=== PATIENT | female | born 1975 | race Caucasian/White ===

== ENCOUNTER 2021-09-10 09:57 | Outpatient (AMB) | payer BC, SELFPAY ==
[2021-09-10 10:13] VITALS: BP 120/82; PULSE 60; TEMP 36.3; BMI 19.8
--- NOTE | 2021-09-10 10:13 | URONOTE_ITS ---
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 Is patient in pain?: No Allergy Allergies ciprofloxacin Allergy (Intermediate, Verified 09/10/21 10:14) SEVERE NAUSEA AND VOMITING Home Meds Medication Reconciliation pyridostigmine bromide 60 mg tablet 90 mg PO TID #60 06/24/15 [History Confirmed 09/10/21] ondansetron 4 mg disintegrating tablet 4 mg PO Q6H PRN #0 tab 03/04/16 [History Confirmed 09/10/21] duloxetine 20 mg capsule,delayed release (Cymbalta) 20 mg PO BID #0 cap 04/02/17 [History Confirmed 09/10/21] lorazepam 0.5 mg tablet 0.5 mg PO BID #0 tab 04/02/17 [History Confirmed 09/10/21] linaclotide 290 mcg capsule (Linzess) 290 mcg PO QDAY 01/18/19 [History Confirmed 09/10/21] sodium bicarbonate 325 mg tablet 325 mg PO TID 01/18/19 [History Confirmed 09/10/21] levothyroxine 25 mcg tablet 25 mcg PO QDAY 08/13/21 [History Confirmed 09/10/21] paroxetine HCl 10 mg tablet 10 mg PO QDAY 08/13/21 [History Confirmed 09/10/21] pregabalin 75 mg capsule 75 mg PO QDAY 08/13/21 [History Confirmed 09/10/21] Nurse Note: Present with Dr Hart in exam room. Patient to be scheduled for cystoscopy. In and catheter inserted by Megha OGDEN. Patient's urine sent for cultures. mvp Fall Screening Do you have a fear of falling?: No Have you had a fall in the last 2 months?: No Do you use an assistive device for ambulation?: No Current Vital Signs Height Height Method Weight Weight Measurement Method Body Mass Index Temperature Temperature Source 1.57 m Stated 49.101 kg Standing Scale 19.8 97.3 F Temporal Artery Scan 09/10/21 10:13 09/10/21 10:13 09/10/21 10:13 09/10/21 10:13 09/10/21 10:13 09/10/21 10:13 09/10/21 10:13 3 Pulse Rate Pulse Source Blood Pressure Blood Pressure Source Blood Pressure Location Blood Pressure Position 60 Monitor 120/82 Automatic Cuff Left Upper Arm Sitting 09/10/21 10:13 09/10/21 10:13 09/10/21 10:13 09/10/21 10:13 09/10/21 10:13 09/10/21 10:13 Nursing Documentation Social History Living Situation History Lives With: Family Housing: House Tobacco History Smoking Status: Never smoker Alcohol History Alcohol Intake: Never Alcohol Intake Frequency: 3 or More Drinks per Day Substance Use History Substance Use: MARIJUANA ONCE A WEEK Office Procedures Uro Clinic Insert Urinary Cath Catheter in and out catheter: Date of Insertion: 09/10/21 Time of Insertion: 10:59 Urinary Catheter Size: 14 Patency: Patent/Draining Urine Characteristics: Clear Odor: Normal Catheter Care: Peggy-care My Supervising Practitioner for this visit:: Aries Hart Cath Insertion Straight: Yes Uro Level of Care Nursing/Assessment/Reassessment Patient Status: Established Patient Nursing Assessment/Reassessment: Update [facility] data in EMR, Vital Signs and Medication Reconciliation Coordination of Care: Simp Pt/Fam Ed for care and Ref for ancillary service Established Patient Point Assignment: 65 Established Patient Point Charge: EP Level 2 (40-75) Procedure IM Injection: No Transrectal Ultrasound: No Urology Clinic Office Visit Office Visit Date of visit:: September 10, 2021 09:57 Allergies & Home Medications: Allergies ciprofloxacin Allergy (Intermediate, Verified 08/13/21 10:55) SEVERE NAUSEA AND VOMITING Visit: Reason for visit: [] Office Visit findings: []
[2021-09-10 10:53] LABS: Bilirubin,Urine Clinitek Negative (Negative); Blood,Urine Clinitek 2+ (Negative); Glucose, Urine Clinitek Negative (Negative); Ketones,Urine Clinitek Negative (Negative); Leukocyte Esterase,Urine Clin 1+ (Negative); Nitrite,Urine Clinitek Negative (Negative); Protein,Urine Clinitek 2+ (Neg - Trace); Specific Gravity,Urine Clin 1.015 (1.001-1.030); Urobilinogen,Urine Clinitek 0.2 mg/dL (0.0-1.0)
--- NOTE | 2021-09-11 05:44 | URONOTEN_ITS ---
RE: ROCIO BONNER : 1975 DATE: 09/10/2021 CHIEF COMPLAINT: 1. Recurrent urinary tract infection. 2. Frequency of urination every 2 hours at night and every 2 hours during the day. 3. Dysuria. 4. Hematuria. 5. History of smoking. HISTORY OF PRESENT ILLNESS: This is a 45-year-old female. She has a history of recurrent UTI. She had urine cultures. This was contaminated. No growth was identified. The patient also has chronic kidney disease. This patient has history of ileostomy done in 2008 at [facility] and she also complains of nausea on p.r.n. basis. She is status post pyloromyotomy. In 2018, she had kidney biopsy, which was suboptimal, it showed some acute tubular injury. The patient is permanently disabled. No history of hysterectomy. She is a 3, para 2, one miscarriage. The patient also has a chronic renal insufficiency. 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 Urine for cytology was done, it was negative for any malignancy. PHYSICAL EXAMINATION: General: Condition is satisfactory. Orientation x3. Vital Signs: Stable. They are in the HPI, in EMR. HEENT: Normocephalic, atraumatic. Eyes: No anemia or jaundice. Neck: Supple. Trachea is central. Thyroid is not enlarged. Extremities: Revealed no edema, cyanosis, or clubbing. CAT scan was reviewed by me and again there were extensive bilateral renal calculi ranging from 1-12 mm. No hydronephrosis or ureteral calculi. RECOMMENDATION: 1. Consultation with Dr. Vizcaino. 2. Cystoscopic examination, rule out bladder cancer because of gross hematuria. All above issues were discussed with the patient in great detail. Questions answered to the patient's satisfaction. The patient verbalized understanding. DT: 12:04:25 TT: 14:06:00 Ref: [id number] - TID: [id number]
== END 2021-09-10 11:00 | disposition home or self-care (01) ==
LOC: HODURO 09:57
PROVIDERS: PCP Internal Medicine; Visit Provider Urology

== ENCOUNTER → 2024-06-05 | Outpatient (CLI) | payer BC, SELFPAY ==
[2024-06-05 09:02] LABS: Misc Send Out* See Sep Rpt
[2024-06-05 09:28] LABS: Collection Type, Urine Clean Catch
[2024-06-05 09:57] LABS: Basophils # (Auto) 0.3 Thou/mm3 (0.0-0.2); Basophils % (Auto) 2 % (0-2.5); Eosinophils # (Auto) 0.3 Thou/mm3 (0.0-0.5); Eosinophils % (Auto) 2 % (0-10); Hematocrit 39.6 % (36.0-46.0); Hemoglobin 10.8 g/dL (12.0-16.0); Immature Granulocytes % (Auto) 0 % (0-0); Immature Granulocytes Auto 0.05 Thou/mm3 (0.00-0.00); Lymphocytes # (Auto) 1.8 Thou/mm3 (1.0-4.8); Lymphocytes % (Auto) 14 % (10-50); Mean Corpuscular HGB Conc 27.3 g/dl (31.0-37.0); Mean Corpuscular Hemoglobin 19.8 pg (25.0-35.0); Mean Corpuscular Volume 73 fL (80-100); Monocytes # (Auto) 0.8 Thou/mm3 (0.0-0.8); Monocytes % (Auto) 6 % (0-12); Neutrophils # (Auto) 9.7 Thou/mm3 (1.8-7.7); Neutrophils % (Auto) 75 % (37-80); Nucleated Red Blood Cell # 0.06 Thou/mm3 (0.00-0.00); Nucleated Red Blood Cell % 1 /100 WBC (0); Platelet Count 428 Thou/mm3 (140-440); RDW Standard Deviation 53.1 fL (36.4-46.3); Red Blood Count 5.45 Miln/mm3 (4.00-5.20); White Blood Count 12.9 Thou/mm3 (3.6-11.0)
[2024-06-05 10:06] LABS: Bacteria,Urine Rare; Bilirubin,Urine Negative (Negative); Blood,Urine 2+ (Negative); Clarity,Urine Clear (Clear/Hazy); Color,Urine Lt-Yellow (Lt Yel-Yel); Glucose, Urine Negative (Negative); Hyaline Casts,Urine < 1 /hpf (0-1); Ketones,Urine Negative (Negative); Leukocyte Esterase,Urine Positive (Negative); Nitrite,Urine Negative (Negative); PH,Urine 6.5 (5.0-7.0); Protein,Urine 1+ (Neg - Trace); RBC,Urine 84 /hpf (0-3); Squamous Epithelial Cell,Urine 1 /hpf (0-5); Urobilinogen,Urine Negative mg/dL (0.0-1.0); WBC,Urine 38 /hpf (0-5)
[2024-06-05 10:21] LABS: Alanine Aminotransferase 10 U/L (10-49); Albumin, Serum 5.1 gm/dL (3.5-5.0); Albumin/Globulin Ratio 2.3 (1.2-2.2); Alkaline Phosphatase 407 U/L (46-116); Anion Gap 9 (7-16); Aspartate Amino Transferase 24 U/L (0-34); BUN/Creatinine Ratio 13 Ratio (12-20); Bilirubin,Total 0.4 mg/dL (0.3-1.2); Blood Urea Nitrogen 22 mg/dL (9-23); Calcium 9.6 mg/dL (8.3-10.6); Calcium (Corrected) 9.6 mg/dL (8.5-10.1); Carbon Dioxide 16.2 mMol/L (20.0-31.0); Chloride 111 mMol/L (98-107); Cholesterol 307 mg/dL (132-200); Creatinine (Component) 1.7 mg/dL (0.6-1.3); Globulin 2.2 gm/dL (2.3-3.5); Glucose 106 mg/dL (74-106); HDL Cholesterol 104 mg/dL (40-60); LDL Cholesterol,Calculated 171 mg/dL (0-130); Osmolality,Calculated 275 (275-295); Potassium 3.7 mMol/L (3.4-5.1); Sodium 136 mMol/L (136-145); Thyroid Stimulating Hormone 3.07 uIU/mL (0.55-4.78); Total Protein 7.3 gm/dL (5.7-8.2); Triglycerides 162 mg/dL (30-150); eGFR 37 See Note
[2024-06-05 10:23] LABS: Culture Indicated,Urine Yes
== END | disposition home or self-care (01) ==
LOC: COPL 08:46
PROVIDERS: PCP Internal Medicine; Referring Provider Internal Medicine; Visit Provider Internal Medicine
DX: N18.30 Chronic kidney disease, stage 3 unspecified (principal); E87.22 Chronic metabolic acidosis; E21.0 Primary hyperparathyroidism; I95.9 Hypotension, unspecified
CPT/HCPCS: 36415; 80053; 80061; 81001; 83970; 84075; 84443; 85025; 87086

== ENCOUNTER → 2024-08-29 | Outpatient (CLI) | payer BC, SELFPAY ==
[2024-08-29 13:51] LABS: Misc Send Out* See Sep Rpt
[2024-08-29 13:58] LABS: Collection Type, Urine Clean Catch
[2024-08-29 14:57] LABS: Basophils # (Auto) 0.2 Thou/mm3 (0.0-0.2); Basophils % (Auto) 2 % (0-2.5); Eosinophils # (Auto) 0.1 Thou/mm3 (0.0-0.5); Eosinophils % (Auto) 1 % (0-10); Hematocrit 39.7 % (36.0-46.0); Hemoglobin 10.8 g/dL (12.0-16.0); Immature Granulocytes % (Auto) 0 % (0-0); Immature Granulocytes Auto 0.04 Thou/mm3 (0.00-0.00); Lymphocytes # (Auto) 1.6 Thou/mm3 (1.0-4.8); Lymphocytes % (Auto) 13 % (10-50); Mean Corpuscular HGB Conc 27.2 g/dl (31.0-37.0); Mean Corpuscular Hemoglobin 19.4 pg (25.0-35.0); Mean Corpuscular Volume 71 fL (80-100); Monocytes # (Auto) 0.8 Thou/mm3 (0.0-0.8); Monocytes % (Auto) 6 % (0-12); Neutrophils # (Auto) 9.1 Thou/mm3 (1.8-7.7); Neutrophils % (Auto) 77 % (37-80); Nucleated Red Blood Cell # 0.09 Thou/mm3 (0.00-0.00); Nucleated Red Blood Cell % 1 /100 WBC (0); Platelet Count 383 Thou/mm3 (140-440); RDW Standard Deviation 50.6 fL (36.4-46.3); Red Blood Count 5.58 Miln/mm3 (4.00-5.20); White Blood Count 11.8 Thou/mm3 (3.6-11.0)
[2024-08-29 15:17] LABS: Bilirubin,Urine Negative (Negative); Blood,Urine 2+ (Negative); Clarity,Urine Clear (Clear/Hazy); Color,Urine Lt-Yellow (Lt Yel-Yel); Glucose, Urine Negative (Negative); Hyaline Casts,Urine < 1 /hpf (0-1); Ketones,Urine Negative (Negative); Leukocyte Esterase,Urine Positive (Negative); Nitrite,Urine Negative (Negative); PH,Urine 6.5 (5.0-7.0); Protein,Urine 1+ (Neg - Trace); RBC,Urine 54 /hpf (0-3); Specific Gravity,Urine 1.008 (1.001-1.035); Squamous Epithelial Cell,Urine 1 /hpf (0-5); Urobilinogen,Urine Negative mg/dL (0.0-1.0); WBC,Urine 67 /hpf (0-5)
[2024-08-29 15:18] LABS: Glucose Estimated Average 100 mg/dL (80-131); Hemoglobin A1C 5.1 % Hgb (4.8-6.0)
[2024-08-29 15:19] LABS: Culture Indicated,Urine Yes
[2024-08-29 15:22] LABS: Sed Rate (ESR) 37 mm/hr (0-20)
[2024-08-29 15:23] LABS: Parathyroid Hormone Intact 36.7 pg/ml (18.5-88.0)
[2024-08-29 15:24] LABS: Alanine Aminotransferase 17 U/L (10-49); Albumin, Serum 5.2 gm/dL (3.5-5.0); Albumin/Globulin Ratio 2.2 (1.2-2.2); Alkaline Phosphatase 428 U/L (46-116); Anion Gap 9 (7-16); Aspartate Amino Transferase 42 U/L (0-34); BUN/Creatinine Ratio 10 Ratio (12-20); Bilirubin,Total 0.5 mg/dL (0.3-1.2); Blood Urea Nitrogen 15 mg/dL (9-23); Calcium 9.6 mg/dL (8.3-10.6); Calcium (Corrected) 9.6 mg/dL (8.5-10.1); Carbon Dioxide 18.4 mMol/L (20.0-31.0); Chloride 112 mMol/L (98-107); Creatinine (Component) 1.5 mg/dL (0.6-1.3); Globulin 2.4 gm/dL (2.3-3.5); Glucose 105 mg/dL (74-106); Osmolality,Calculated 278 (275-295); Potassium 3.6 mMol/L (3.4-5.1); Sodium 139 mMol/L (136-145); Total Protein 7.6 gm/dL (5.7-8.2); eGFR 43 See Note
[2024-08-29 15:40] LABS: C-Reactive Protein < 0.4 mg/dL (0.0-0.9); Cardiac Risk Estimate 2.3 RATIO (3.7-5.6); Cholesterol 211 mg/dL (132-200); HDL Cholesterol 90 mg/dL (40-60); LDL Cholesterol,Calculated 95 mg/dL (0-130); Thyroid Stimulating Hormone 1.77 uIU/mL (0.55-4.78); Triglycerides 132 mg/dL (30-150)
[2024-08-29 23:52] LABS: Vitamin D 25 Hydroxy Total 57.7 ng/mL (7.3-40.2)
[2024-09-07 06:40] LABS: Actin Antibody (IgG)* <20 U; Gamma Glutamyl Transpeptidase* 20 U/L (3-55); Mitochondrial Ab NEGATIVE (NEGATIVE)
== END | disposition home or self-care (01) ==
LOC: COPL 13:21
PROVIDERS: PCP Internal Medicine; Referring Provider Internal Medicine; Visit Provider Internal Medicine
DX: E78.5 Hyperlipidemia, unspecified (principal); E03.9 Hypothyroidism, unspecified; N18.30 Chronic kidney disease, stage 3 unspecified; D84.9 Immunodeficiency, unspecified; G35 Multiple sclerosis; K31.84 Gastroparesis; N25.81 Secondary hyperparathyroidism of renal origin; R41.89 Other symptoms and signs involving cognitive functions and awareness; R74.8 Abnormal levels of other serum enzymes
CPT/HCPCS: 36415; 80053; 80061; 81001; 82306; 82977; 83036; 83970; 84075; 84100; 84443; 85025; 85652; 86015; 86140; 86255; 86376; 87086

== ENCOUNTER 2024-10-19 16:03 | Inpatient (IN) | payer BC, SELFPAY ==
[2024-10-19] VITALS (9 sets, daily range): BP systolic 112–132; BP diastolic 72–89; PULSE 83–97; RESP 16–19; TEMP 36.6–36.9; O2SAT 97–100; BMI 17.7; BMI 18.5
--- NOTE | 2024-10-19 16:34 | PD.EDNV ---
Nausea/Vomit./Diarrhea-RME/HPI General Chief complaint: Nausea/Vomiting/Diarrhea Stated complaint: BODY PAIN Time Seen by Provider: 10/19/24 16:28 Arrival date/time: 10/19/24 16:03 RME / HPI RME / HPI Narrative: 48-year-old female patient with significant history of multiple sclerosis, gastroparesis, with ileostomy, came in for evaluation regarding nausea and vomiting. Patient having nausea and vomiting since yesterday, severity moderate nonbloody. Also complaining of worsening muscle cramping, scattered all over, severity moderate. Patient denies any fever. Patient ileostomy bag is working really good according to her is normal consistency. Patient usually received Ocrevus almost every 6 months, last given 5 months ago. Patient neurologist is Dr. Alcantar. Patient denies any other complaints. Related Data Home Medications ?Medication ?Instructions ?Recorded ?Confirmed pyridostigmine bromide 60 mg tablet 90 mg PO BID ##60 06/24/15 08/26/22 ondansetron 4 mg disintegrating 4 mg PO BID PRN n/v #0 tabs 03/04/16 08/26/22 tablet duloxetine 20 mg capsule,delayed 20 mg PO BID #0 caps 04/02/17 08/26/22 release (Cymbalta) lorazepam 0.5 mg tablet 0.5 mg PO BID PRN Anxiety #0 tabs 04/02/17 08/26/22 linaclotide 290 mcg capsule 290 mcg PO QDAY 01/18/19 08/26/22 (Linzess) levothyroxine 25 mcg tablet 25 mcg PO QDAY 08/13/21 08/26/22 cyanocobalamin (vitamin B-12) 1,000 mcg subcut QWEEK 08/26/22 08/26/22 1,000 mcg/mL injection solution cyclobenzaprine 5 mg tablet 5 mg PO HS PRN Spasms 08/26/22 08/26/22 ergocalciferol (vitamin D2) 1,250 50,000 unit PO QWEEK 08/26/22 08/26/22 mcg (50,000 unit) capsule estradiol 10 mcg vaginal tablet 10 mcg 2 X WEEKLY 08/26/22 08/26/22 (Yuvafem) potassium chloride 20 mEq/15 mL 20 meq PO TID PRN cramping 08/26/22 08/26/22 oral liquid sodium bicarbonate 650 mg tablet 1,950 mg PO BID 08/26/22 08/26/22 Allergies Allergy/AdvReac Type Severity Reaction Status Date / Time ciprofloxacin Allergy Severe SEVERE Verified 08/26/22 11:07 NAUSEA AND VOMITING Review of Systems Review of Systems Narrative Review of Systems: Review of system reviewed and within normal limits except mentioned in HPI ED Exam Narrative Physical exam: VITAL SIGNS: Reviewed. GENERAL APPEARANCE: Alert and interactive, follows commands, no acute distress, HEAD AND FACE: Non-traumatic. ENT: PERRL, pink conjunctivitis, eyelid no trauma, Mucous membrane moist. NECK: Supple, nontender, no nuchal rigidity. CHEST: No tenderness, no crepitus, no paradoxical movement, no retractions. LUNGS: Clear, well ventilated, symmetric, no rales, no wheezing, no ronchi, no stridor, good breath sounds bilaterally. HEART: Regular rate, regular rhythm, no murmur, no gallops. ABDOMEN: Soft, positive bowel sounds, nondistended, no guarding, nontender, no rebound, no masses, right lower abdominal ileostomy bag intact RECTAL: Deferred. GENITAL: Deferred. NEUROLOGICAL: Gross motor function intact sensory function intact, Appropriate for age. MUSCULOSKELETAL: low back nontender, full range of motion. EXTREMITIES: Nontender, full range of motion. SKIN: Color pink, dry, no rash, no lacerations, no abrasions, no contusions. LYMPHATICS: Deferred. Course Quality Measures none Orders Category Date Time Status COVID-19 Screening Questionnaire NOW Care 10/19/24 21:03 Active Decision to Admit X1 Care 10/19/24 21:02 Active EKG (ED ONLY) *Do not use* NOW Care 10/19/24 16:40 Completed Consult to Gastroenterology Stat Cons 10/19/24 21:[address] abdomen pelvis wo con Stat Exams 10/19/24 18:55 Completed EKG (ED Only) Stat Exams 10/19/24 16:40 Draft US gall bladder Stat Exams 10/19/24 18:55 Completed CBC Stat Lab 10/19/24 16:52 Completed Comprehensive Metabolic Panel Stat Lab 10/19/24 16:52 Completed Lipase Stat Lab 10/19/24 16:52 Completed Lipid Panel Stat Lab 10/19/24 16:52 Completed Prothrombin Time with INR Stat Lab 10/19/24 16:52 Completed UA, C/S IF [Urinalysis, C/S if Indicated] Stat Lab 10/19/24 18:49 Completed Urine Culture Stat Lab 10/19/24 18:49 Received Famotidine Inj [Pepcid Inj] Med 10/19/24 16:40 Discontinued 20 mg IVP X1 ONE Metoclopramide Inj [Reglan Inj] Med 10/19/24 16:40 Discontinued 10 mg IVP X1 ONE Morphine Inj Med 10/19/24 16:40 Discontinued 4 mg IVP X1 ONE Ringers Lactated 1000 ml [Lactated Ringers] 1,000 ml Med 10/19/24 16:40 Discontinued IV 999 mls/hr Ringers Lactated 1000 ml [Lactated Ringers] 1,000 ml Med 10/19/24 16:40 Discontinued IV 999 mls/hr Sodium Chloride 0.9% 1000 ml [Ns] 1,000 ml Med 10/19/24 19:08 Active IV 125 mls/hr Vital Signs Vital signs: Vital Signs Temperature 97.9 F 10/19/24 16:29 Pulse Rate 97 10/19/24 16:29 Respiratory Rate 18 10/19/24 16:29 Blood Pressure 115/82 10/19/24 16:29 Pulse Oximetry (%) 97 10/19/24 16:29 Oxygen Delivery Method Room Air 10/19/24 16:29 Nausea/Vomiting/Diarrhea MDM Narrative MDM Narrative:: 48-year-old female patient with significant history of multiple sclerosis, gastroparesis, with ileostomy, came in for evaluation regarding nausea and vomiting. Patient having nausea and vomiting since yesterday, severity moderate nonbloody. Also complaining of worsening muscle cramping, scattered all over, severity moderate. Patient denies any fever. Patient ileostomy bag is working really good according to her is normal consistency. Patient usually received Ocrevus almost every 6 months, last given 5 months ago. Patient neurologist is Dr. Alcantar. Patient denies any other complaints. CBC showed leukocytosis of 26.6 neutrophil of 24.6 sodium 130 Carbodec site of 11.1 BUN of 34, creatinine of 2.6 lipase was noted to be 2053 urinalysis positive for UTI CT scan of the abdomen showed multiple staghorn calculi otherwise unremarkable. Ultrasound of the gallbladder also showed multiple staghorn calculi otherwise unremarkable. Patient received IV fluids x 2 L, morphine IV, Reglan IV, and IV Zosyn Spoke with patient's PCP, Dr. Covington who admitted the patient, thank you DrReddy Patient data External records reviewed:: None Clinical information provided by:: patient Social determinants that could affect healthcare access:: none Patient has the following chronic illnesses:: Multiple sclerosis, positive ileostomy, gastroparesis How is presenting disease/condition affected by chronic disease/condition?: exacerbated by Evaluation data The following diagnostics were reviewed and interpreted by me:: lab results and radiology exam(s) Lab and/or radiology exams considered but not ordered:: None Interpretation Summary: See results in [facility] Medications / Prescriptions Medications / Prescriptions considered but not ordered:: None Medication administrations:: Medication Administration History Acetaminophen (Acetaminophen 500 Mg Tablet) 500 mg PO Q6H PRN PRN Reason: mild pain and or fever >100.2 Stop: 11/18/24 21:14 Duloxetine HCl (Duloxetine Hcl 20 Mg Capsule) 20 mg PO BID BONNY Stop: 11/19/24 08:59 Sodium Chloride (Ns) 1,000 mls @ 125 mls/hr IV .Q8H ONE Stop: 10/20/24 03:07 Last Admin: 10/19/24 19:37 Dose: 125 mls/hr Documented By: GRACIE Lactated Ringer's (Lactated Ringers) 1,000 mls @ 120 mls/hr IV .Q8H20M BONNY Stop: 11/18/24 21:05 Piperacillin/Tazobactam/Dextrose (Zosyn) 3.375 gm in 50 mls @ 100 mls/hr IV X1 ONE Stop: 10/19/24 22:50 Levothyroxine Sodium (Levothyroxine Sodium 25 Mcg Tablet) 25 mcg PO ACBR BONNY Stop: 11/19/24 05:59 Lorazepam (Lorazepam 0.5 Mg Tablet) 0.5 mg PO BID PRN PRN Reason: Anxiety Stop: 10/24/24 21:31 Morphine Sulfate (Morphine Sulf Inj 10 Mg/Ml Vial (Asd Use Only)) 1 mg IVP Q4H PRN PRN Reason: PAIN SCALE 7-10 (Severe Stop: 10/24/24 21:04 Ondansetron HCl (Ondansetron Inj 2 Mg/Ml Inj 2 Ml) 4 mg IV Q4H PRN; Protocol PRN Reason: NAUSEA Stop: 11/18/24 21:04 Potassium Chloride (Potassium Chloride 10% 20 Meq/15 Ml Udc) 20 meq PO TID PRN PRN Reason: cramping Stop: 11/18/24 21:31 Pyridostigmine [place] (Pyridostigmine [place] 60 Mg Tablet) 90 mg PO BID BONNY Stop: 11/19/24 08:59 Discontinued Medications Famotidine (Famotidine Inj 10 Mg/Ml Vial 2 Ml) 20 mg IVP X1 ONE Stop: 10/19/24 16:41 Last Admin: 10/19/24 17:04 Dose: 20 mg Documented By: LUIS Lactated Ringer's (Lactated Ringers) 1,000 mls @ 999 mls/hr IV .Q1H1M ONE Stop: 10/19/24 17:40 Last Infusion: 10/19/24 18:27 Dose: Infused Documented By: Admin: 10/19/24 17:05 Dose: 999 mls/hr Documented By: LUIS Lactated Ringer's (Lactated Ringers) 1,000 mls @ 999 mls/hr IV .Q1H1M ONE Stop: 10/19/24 17:40 Last Infusion: 10/19/24 18:27 Dose: Infused Documented By: Admin: 10/19/24 17:05 Dose: 999 mls/hr Documented By: LUIS Metoclopramide HCl (Metoclopramide Inj 5 Mg/Ml Vial 2 Ml) 10 mg IVP X1 ONE; Protocol Stop: 10/19/24 16:41 Last Admin: 10/19/24 17:03 Dose: 10 mg Documented By: LUIS Morphine Sulfate (Morphine Sulf Inj 10 Mg/Ml Vial) 4 mg IVP X1 ONE Stop: 10/19/24 16:41 Last Admin: 10/19/24 17:02 Dose: 4 mg Documented By: LUIS IV fluids x 2 L, IV Zosyn, morphine, Reglan and Pepcid Consultations Consultation(s) initiated? (list below): Yes Consultation #1 (Physician, Specialty, Details): I consulted Dr. Shirley, GI specialist on-call, thank you Dr. Shirley Diagnosis Nausea Differential Diagnosis: food poisoning, gastroenteritis and dehydration Most likely diagnosis given after review of the tests above:: Acute pancreatitis, UTI Admission Indicated Admission indicated?: indicated Admission Request Was there a request for admission?: Yes Admission Attestation Admission request attestation: Dr. Harris agrees to accept the patient for admission. Disposition Plan Disposition Plan: Admit Discharge Plan Plan Patient Disposition: Admit Acute Care w/in Hospital Disposition Comment: Stable Problem List Clinical Impression: Multiple sclerosis, Acute pancreatitis, Gastroparesis, Nausea & vomiting, UTI (urinary tract infection)
--- NOTE | 2024-10-19 16:40 | EKG_ITS ---
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
[2024-10-19] MEDS: MORPHINE SULF INJ 10 MG/ML VIAL 4 MG IVP (17:02)
[2024-10-19 17:03] LABS: Basophils # (Auto) 0.2 Thou/mm3 (0.0-0.2); Basophils % (Auto) 1 % (0-2.5); Eosinophils % (Auto) 0 % (0-10); Hemoglobin 12.4 g/dL (12.0-16.0); Immature Granulocytes % (Auto) 1 % (0-0); Immature Granulocytes Auto 0.16 Thou/mm3 (0.00-0.00); Lymphocytes # (Auto) 0.7 Thou/mm3 (1.0-4.8); Lymphocytes % (Auto) 3 % (10-50); Mean Corpuscular Hemoglobin 19.1 pg (25.0-35.0); Mean Corpuscular Volume 71 fL (80-100); Monocytes # (Auto) 0.9 Thou/mm3 (0.0-0.8); Monocytes % (Auto) 4 % (0-12); Neutrophils # (Auto) 24.6 Thou/mm3 (1.8-7.7); Neutrophils % (Auto) 93 % (37-80); Nucleated Red Blood Cell # 0.06 Thou/mm3 (0.00-0.00); Nucleated Red Blood Cell % 0 /100 WBC (0); Platelet Count 540 Thou/mm3 (140-440); RDW Standard Deviation 46.3 fL (36.4-46.3); Red Blood Count 6.49 Miln/mm3 (4.00-5.20); White Blood Count 26.6 Thou/mm3 (3.6-11.0)
[2024-10-19] MEDS: METOCLOPRAMIDE INJ 5 MG/ML VIAL 2 ML 10 MG IVP (17:03)
[2024-10-19] MEDS: FAMOTIDINE INJ 10 MG/ML VIAL 2 ML 20 MG IVP (17:04)
[2024-10-19] MEDS: RINGERS LACTATED 1000 ML 1,000 ML 999 ML IV ×2 (17:05)
[2024-10-19 17:26] LABS: INR 1.1 (0.9-1.3); Prothrombin Time 11.7 Seconds (9.0-12.2)
[2024-10-19 18:24] LABS: Alanine Aminotransferase 14 U/L (10-49); Albumin, Serum 5.7 gm/dL (3.5-5.0); Albumin/Globulin Ratio 1.6 (1.2-2.2); Alkaline Phosphatase 361 U/L (46-116); Anion Gap 16 (7-16); Aspartate Amino Transferase 51 U/L (0-34); BUN/Creatinine Ratio 13 Ratio (12-20); Bilirubin,Total 0.5 mg/dL (0.3-1.2); Blood Urea Nitrogen 34 mg/dL (9-23); Calcium 9.6 mg/dL (8.3-10.6); Calcium (Corrected) 9.6 mg/dL (8.5-10.1); Chloride 103 mMol/L (98-107); Creatinine (Component) 2.6 mg/dL (0.6-1.3); Estimated Creatinine Clearance 18.4 mL/min (>60); Globulin 3.5 gm/dL (2.3-3.5); Glucose 108 mg/dL (74-106); Lipase 2053 U/L (12-53); Osmolality,Calculated 269 (275-295); Potassium 3.6 mMol/L (3.4-5.1); Sodium 130 mMol/L (136-145); Total Protein 9.2 gm/dL (5.7-8.2); eGFR 22 See Note
[2024-10-19 18:26] LABS: Carbon Dioxide 11.1 mMol/L (20.0-31.0)
--- NOTE | 2024-10-19 18:55 | XR_ITS ---
Examination: Abdomen sonogram, Limited Date and time of exam: October 19, 2024 1917 hours INDICATIONS: Epigastric pain and right upper abdominal pain beginning this morning Technique: Real-time finn scale transabdominal sonographic images of the upper abdomen obtained. Findings: Normal gallbladder Normal common bile ducts are 0.3 cm Pancreatic head 2.7 cm Liver 11.8 cm fatty infiltration with no focal liver lesions Normal hepatopedal portal venous flow Patent IVC Multiple staghorn-type renal calculi IMPRESSION: Normal gallbladder Fatty liver. Multiple staghorn-type renal calculi
--- NOTE | 2024-10-19 18:55 | XR_ITS ---
Examination: CT abdomen and pelvis without contrast. Coronal 3-D reconstructions. Sagittal 2-D reconstructions. Date and time of exam:October 19, 2024 2118 hours INDICATIONS: Generalized abdominal pain. COMPARISON: August 26, 2022 CTDI: vol (mGy): 4.23 DLP: (mGycm): 269. Technique: Axial images of the abdomen have been obtained, 3 mm slice thickness Intravenous contrast material has not been administered. Low dose protocols were performed. One or more of the following dose reduction techniques were used; automated exposure control, adjustment of the mA and/or KV according to patient size, use of iterative reconstruction technique. Findings: No focal liver or splenic lesions No gallstones No pancreatic mass Numerous large bilateral staghorn calculi, no hydronephrosis or ureteral calculi Right ileostomy Urinary bladder intact Numerous pelvic phleboliths No bladder calculi Posterior right pelvic cyst 3 cm Osseous structures are intact IMPRESSION: Numerous bilateral staghorn calculi, no hydronephrosis or ureteral calculi Normal appendix No bowel obstruction No bladder mass or bladder calculi
[2024-10-19 19:05] LABS: Collection Type, Urine Clean Catch
[2024-10-19] MEDS: SODIUM CHLORIDE 0.9% 1000 ML 1,000 ML 125 ML IV (19:37)
[2024-10-19 19:50] LABS: Bacteria,Urine Rare; Bilirubin,Urine Negative (Negative); Blood,Urine 2+ (Negative); Clarity,Urine Turbid (Clear/Hazy); Color,Urine Lt-Yellow (Lt Yel-Yel); Glucose, Urine Negative (Negative); Hyaline Casts,Urine < 1 /hpf (0-1); Ketones,Urine Negative (Negative); Leukocyte Esterase,Urine Positive (Negative); Nitrite,Urine Negative (Negative); PH,Urine 6.5 (5.0-7.0); Protein,Urine 1+ (Neg - Trace); RBC,Urine 10 /hpf (0-3); Specific Gravity,Urine 1.007 (1.001-1.035); Squamous Epithelial Cell,Urine 5 /hpf (0-5); Urobilinogen,Urine Negative mg/dL (0.0-1.0); WBC,Urine 51 /hpf (0-5)
[2024-10-19 20:02] LABS: Culture Indicated,Urine Yes
[2024-10-19 21:34] LABS: Cholesterol 314 mg/dL (132-200); HDL Cholesterol 159 mg/dL (40-60); LDL Cholesterol,Calculated 128 mg/dL (0-130); Triglycerides 133 mg/dL (30-150)
--- NOTE | 2024-10-19 21:37 | PD.IMCONS ---
HPI Data of Consult Requesting Physician: Irma Harris MD Primary Care Provider: Irma Harris MD Consult Narrative Reason for consult: Severe abdominal pain History of present illness: 48 years old female evaluated at the request of the emergency room medical group for this patient with abdominal pain nausea vomiting and elevated lipase at 2052 She does have a history of alcohol consumption Patient does have a longstanding history of gastroparesis requiring ileostomy as well as CT scan of the abdomen pelvis showed bilateral staghorn calculi and right ileostomy Patient had a CO2 of 11.1 cc:: cc: Irma Harris MD Review of Systems Review of Systems Systems Reviewed: All systems reviewed, normal except as documented Past Medical History Surgical History OTHER SURGICAL HX: As in the history of present illness Meds Home Medications and Allergies Home Medications ?Medication ?Instructions ?Recorded ?Confirmed ?Type pyridostigmine bromide 60 mg tablet 90 mg PO BID ##60 06/24/15 08/26/22 History ondansetron 4 mg disintegrating 4 mg PO BID PRN n/v #0 tabs 03/04/16 08/26/22 History tablet duloxetine 20 mg capsule,delayed 20 mg PO BID #0 caps 04/02/17 10/20/24 History release (Cymbalta) lorazepam 0.5 mg tablet 0.5 mg PO BID PRN Anxiety #0 tabs 04/02/17 10/20/24 History linaclotide 290 mcg capsule 290 mcg PO QDAY 01/18/19 10/20/24 History (Linzess) levothyroxine 25 mcg tablet 25 mcg PO QDAY 08/13/21 10/20/24 History cyanocobalamin (vitamin B-12) 1,000 mcg subcut QWEEK 08/26/22 08/26/22 History 1,000 mcg/mL injection solution cyclobenzaprine 5 mg tablet 5 mg PO HS PRN Spasms 08/26/22 10/20/24 History ergocalciferol (vitamin D2) 1,250 50,000 unit PO QWEEK 08/26/22 08/26/22 History mcg (50,000 unit) capsule estradiol 10 mcg vaginal tablet 10 mcg 2 X WEEKLY 08/26/22 08/26/22 History (Yuvafem) potassium chloride 20 mEq/15 mL 20 meq PO TID PRN cramping 08/26/22 08/26/22 History oral liquid sodium bicarbonate 650 mg tablet 1,950 mg PO BID 08/26/22 08/26/22 History buspirone 15 mg tablet 15 mg PO QDAY 10/20/24 10/20/24 History Allergies Allergy/AdvReac Type Severity Reaction Status Date / Time ciprofloxacin Allergy Severe SEVERE Verified 08/26/22 11:07 NAUSEA AND VOMITING Exam Vital Signs Temp Pulse Resp BP Pulse Ox O2 Del Method 98.2 F 83 16 112/72 100 Room Air 10/19/24 18:08 10/19/24 18:08 10/19/24 18:08 10/19/24 18:08 10/19/24 18:08 10/19/24 18:08 Constitutional Comments: Alert oriented Routine Respiratory Exam Comments: Normal to auscultation Routine Abdominal Exam Comments: Midepigastric tenderness no rebound ileostomy in place Results Labs 10/20/24 04:47 10/20/24 04:47 Labs: Short CBC 10/19/24 Range/Units 16:52 WBC 26.6 H (3.6-11.0) Thou/mm3 Hgb 12.4 (12.0-16.0) g/dL Hct 46.0 (36.0-46.0) % Plt Count 540 H (140-440) Thou/mm3 BMP 10/19/24 16:52 Sodium 130 L Potassium 3.6 Chloride 103 Carbon Dioxide 11.1 L* BUN 34 H Creatinine 2.6 H Glucose 108 H Calcium 9.6 Liver Function 10/19/24 Range/Units 16:52 Total Bilirubin 0.5 (0.3-1.2) mg/dL AST 51 H (0-34) U/L ALT 14 (10-49) U/L Alkaline Phosphatase 361 H (46-116) U/L Albumin 5.7 H (3.5-5.0) gm/dL Urine 10/19/24 Range/Units 18:49 Urine Color Lt-Yellow (Lt Yel-Yel) Urine Clarity Turbid A (Clear/Hazy) Urine pH 6.5 (5.0-7.0) Ur Specific [place] 1.007 (1.001-1.035) Urine Protein 1+ A (Neg - Trace) Urine Glucose (UA) Negative (Negative) Assessment and Plan Additional Assessment & Plan Additional Plan: # Acute pancreatiti most likely alcohol induced although biliary dyskinesia cannot be ruled out Conservative management with IV fluids and pain control Will follow # Pain abdomen secondary to 1 # Renal insufficiency due to dehydration # Longstanding gastroparesis # Status post ileostomy
[2024-10-19] MEDS: PIPER/TAZO 3.375 GM PREMIX 3.375 GM/50 ML BAG IV (23:18)
[2024-10-19] MEDS: POTASSIUM CHLORIDE 10% 20 MEQ/15 ML UDC PO (23:26)
[2024-10-19] MEDS: RINGERS LACTATED 1000 ML 1,000 ML 120 ML IV (23:35)
--- NOTE | 2024-10-19 23:40 | PC.NURSE ---
Pt resting quietly. states pain is mild at this time.
--- NOTE | 2024-10-19 23:47 | PC.NURSE ---
cald report to Alyssa OGDEN. pt to rm [id number]
[2024-10-20] VITALS: BP 159/96; PULSE 89; RESP 17; TEMP 36.8; O2SAT 94
[2024-10-20] MEDS: MORPHINE SULF INJ 10 MG/ML VIAL IVP ×3 (01:06→09:34)
[2024-10-20] MEDS: ONDANSETRON INJ 2 MG/ML INJ 2 ML 4 MG IV (01:07)
[2024-10-20 04:00] VITALS: BP 136/89; PULSE 77; RESP 17; TEMP 36.4; O2SAT 95
--- NOTE | 2024-10-20 04:07 | PC.NURSE ---
patient c/o headache, itching, states dose of morphine did not help much with her pain, patient states feeling anxious no being at home, called Dr Harris regarding this and per M D okay to give PO ativan PRN for anxiety and give next dose of morphine early.
[2024-10-20] MEDS: LORazepam 0.5 MG TABLET PO ×2 (04:15→20:31)
[2024-10-20 06:07] LABS: Basophils # (Auto) 0.2 Thou/mm3 (0.0-0.2); Basophils % (Auto) 1 % (0-2.5); Eosinophils # (Auto) 0.1 Thou/mm3 (0.0-0.5); Eosinophils % (Auto) 1 % (0-10); Hematocrit 32.7 % (36.0-46.0); Hemoglobin 9.3 g/dL (12.0-16.0); Immature Granulocytes % (Auto) 0 % (0-0); Immature Granulocytes Auto 0.05 Thou/mm3 (0.00-0.00); Lymphocytes # (Auto) 2.2 Thou/mm3 (1.0-4.8); Lymphocytes % (Auto) 14 % (10-50); Mean Corpuscular HGB Conc 28.4 g/dl (31.0-37.0); Mean Corpuscular Hemoglobin 19.3 pg (25.0-35.0); Mean Corpuscular Volume 68 fL (80-100); Monocytes # (Auto) 1.5 Thou/mm3 (0.0-0.8); Monocytes % (Auto) 9 % (0-12); Neutrophils # (Auto) 12.3 Thou/mm3 (1.8-7.7); Neutrophils % (Auto) 75 % (37-80); Nucleated Red Blood Cell # 0.02 Thou/mm3 (0.00-0.00); Nucleated Red Blood Cell % 0 /100 WBC (0); Platelet Count 442 Thou/mm3 (140-440); RDW Standard Deviation 45.1 fL (36.4-46.3); Red Blood Count 4.82 Miln/mm3 (4.00-5.20); White Blood Count 16.4 Thou/mm3 (3.6-11.0)
[2024-10-20 06:23] LABS: Alanine Aminotransferase 11 U/L (10-49); Albumin, Serum 4.4 gm/dL (3.5-5.0); Albumin/Globulin Ratio 2.1 (1.2-2.2); Alkaline Phosphatase 248 U/L (46-116); Amylase 517 U/L (30-118); Anion Gap 10 (7-16); Aspartate Amino Transferase 73 U/L (0-34); BUN/Creatinine Ratio 16 Ratio (12-20); Bilirubin,Total 0.5 mg/dL (0.3-1.2); Blood Urea Nitrogen 31 mg/dL (9-23); Calcium 8.7 mg/dL (8.3-10.6); Calcium (Corrected) 8.7 mg/dL (8.5-10.1); Carbon Dioxide 15.6 mMol/L (20.0-31.0); Chloride 110 mMol/L (98-107); Estimated Creatinine Clearance 24.9 mL/min (>60); Globulin 2.1 gm/dL (2.3-3.5); Glucose 87 mg/dL (74-106); Lipase 117 U/L (12-53); Osmolality,Calculated 277 (275-295); Potassium 3.8 mMol/L (3.4-5.1); Sodium 136 mMol/L (136-145); Total Protein 6.5 gm/dL (5.7-8.2); eGFR 30 See Note
[2024-10-20 08:00] VITALS: BP 124/89; PULSE 73; RESP 18; TEMP 36.3; O2SAT 96
[2024-10-20] MEDS: DULoxetine HCL 20 MG CAPSULE PO ×2 (09:21→20:31)
[2024-10-20] MEDS: RINGERS LACTATED 1000 ML 1,000 ML 120 ML IV ×2 (09:21→17:37)
[2024-10-20] MEDS: pyRIDostigmine bromide 60 MG TABLET 90 MG PO ×2 (09:21→20:31)
[2024-10-20] MEDS: POTASSIUM CHLORIDE 10% 20 MEQ/15 ML UDC PO ×2 (09:21→20:32)
[2024-10-20 11:40] VITALS: BMI 18.6
[2024-10-20 12:00] VITALS: BP 112/79; PULSE 70; RESP 18; TEMP 36.5; O2SAT 99
--- NOTE | 2024-10-20 14:46 | PD.RESHP ---
Documentation for date of: 10/20/24 [facility] History of Present Illness Chief complaint: Abdominal pain History of present illness: Ms. Goyal is a 48-year-old female with extensive past medical history of constipation s/p ileostomy, gastroparesis, renal calculi, recurrent metabolic acidosis [secondary to tubular acidosis and GI losses], CKD stage III, multiple sclerosis(under Dr. Vega-on [place]), anxiety, depression, seizures, hypothyroidism presented to the hospital with complaints of severe abdominal pain, body pains and vomiting since 1 day. Patient was apparently normal 1 day back, stated that she had to smirnoff drinks and later she developed severe abdominal pain with bodyaches, followed by 2 episodes of vomitings, as the patient is not feeling well she came to the hospital ED Course: -Initial vitals were stable -Labs significant forWBC 16.4, Hb 9.3, platelets 442, sodium 130, potassium 3.6, bicarb 11.1, BUN 34, creatinine 2.6, glucose 108, osmolality 269, AST 51, ALT 14, ALP 361, lipase 2053 -Abdomen/pelvis CT showed numerous bilateral staghorn calculi, no hydronephrosis or ureteral calculi noted, right ileostomy, numerous pelvic phleboliths. -In the ED, patient was given zosyn and LR -Patient was admitted for Acute pancreatitis PMH: constipation s/p ileostomy, gastroparesis, renal calculi, recurrent metabolic acidosis [secondary to tubular acidosis and GI losses], CKD stage III, multiple sclerosis, anxiety, depression, seizures, hypothyroidism PSH: Ileostomy Social Hx: Denies alcohol, smoking or other drug abuse. Lives at home with and children Review of Systems Review of Systems Narrative Review of Systems: Constitutional: No Weight Change, No Fever, No Chills, No Night Sweats, Fatigue, Malaise ENT/Mouth: No Hearing Changes, No Ear Pain, No Nasal Congestion, No Sinus Pain, No Hoarseness, No sore throat, No Rhinorrhea, No Swallowing Difficulty Eyes: No Eye Pain, No Swelling, No Redness, No Foreign Body, No Discharge, No Vision Changes Cardiovascular: No Chest Pain, No SOB, No PND, No Dyspnea on Exertion, No Orthopnea, No Edema, No Palpitations Respiratory: No Cough, No Sputum, No Wheezing, No Dyspnea Gastrointestinal: Nausea, Vomiting, No Diarrhea, No Constipation, No Pain, No Heartburn, Anorexia, No Dysphagia, No Hematochezia, No Melena, No Flatulence, No Jaundice . Positive ileostomy Genitourinary: No Dysuria, No Urinary Frequency, No Hematuria, No Urinary Incontinence, No Urgency, No Flank Pain, No Urinary Flow Changes, No Hesitancy Musculoskeletal: No Arthralgias, No Myalgias, No Joint Swelling, No Joint Stiffness, No Back Pain, No Neck Pain, No Injury History Skin: No Skin Lesions, No Pruritis Neuro: No Weakness, No Numbness, No Paresthesias, No Loss of Consciousness, No Syncope, No Dizziness, No Headache, No Coordination Changes, No Recent Falls Past Medical History Past Medical History NEUROLOGIC: Positive Multiple Sclerosis; Negative Neurological Disorders or Seizures CARDIAC: Positive Cardiac Disorders, Edema and Hypotension; Negative Congestive Heart Failure RESPIRATORY: Negative Chronic Obstructive Pulmonary Disease (COPD) GASTROINTESTINAL: Positive Gastrointestinal Disorders, Pancreatitis and Obstructive Bowel; Negative Hepatitis or Colorectal Cancer GENITOURINARY: Negative Genitourinary Disorders, Renal Disease or Prostate Cancer REPRODUCTIVE: Positive Previous Pregnancies; Negative Breast Cancer or Testicular Cancer MUSCULOSKELETAL: Positive Musculoskeletal Disorders and Fibromyalgia; Negative Bone Cancer or Carpal Tunnel Syndrome ENT: Negative Cataracts ENDOCRINE: Positive Hypothyroidism; Negative Endocrine Disorders, Diabetes Mellitus Type 1 or Diabetes Mellitus Type 2 HEMATOLOGIC: Positive Blood Disorders and Anemia PSYCHO/SOCIAL: Positive Depression OTHER HISTORY: Positive Falls and Chicken Pox; Negative Autoimmune Disease, Blood Transfusions, Blood Transfusion Reaction, Anesthesia Reactions, Human Immunodeficiency Virus (HIV), Measles, Mumps, Rubella ([place] Measles), Pertussis, Clostridium Difficile, Breast Cancer, Cervical Cancer, Colorectal Cancer, Lung Cancer, Ovarian Cancer, Prostate Cancer or Testicular Cancer Family History FAMILY HISTORY: Positive Family Cardiac Disorders, Family Gastrointestinal Problems and Family Cancer; Negative Family Psychiatric Problems, Family Respiratory Disorders, Family Surgery or Family Anesthesia Reaction Surgical History SURGICAL: Positive Abdominal Surgery and Tubal Ligation; Negative Cardiac Surgery, Endocrine Surgery, Ear Surgery, Tympanostomy Tube, Eye Surgery, Nose Surgery, Oral Surgery, Tonsillectomy, Adenoidectomy, Cochlear Implant, Corneal Transplant, Throat Surgery, Tracheostomy, Nephrectomy, Transurethral Resection, Joint Replacement, Amputation, Open Reduction Internal Fixation, Arthroscopy, Mastectomy, Lumpectomy or Section OTHER SURGICAL HX: Well-documented in previous history and physical Social History SMOKING STATUS: Never smoker Exam Vital Signs Temp Pulse Resp BP Pulse Ox O2 Del Method 97.7 F 70 18 112/79 99 Room Air 10/20/24 12:00 10/20/24 12:00 10/20/24 12:00 10/20/24 12:00 10/20/24 12:00 10/20/24 12:00 Narrative Exam General: Awake. HEENT: Normocephalic, atraumatic, mucous membranes moist. Heart: Regular rate and rhythm, no murmurs. Lungs: Clear to auscultation with no wheezing or crackles. Abdomen: Soft, nondistended, mild tenderness, positive bowel sounds. ?No guarding or rebound tenderness.++Ileostomy Neurologic: Alert and oriented x3, no gross neurological deficit, and patient able to move all 4 extremities. Extremities: No edema. Skin: No rash or ecchymoses. Results: Labs 10/20/24 04:47 10/20/24 04:47 Labs: Short CBC 10/19/24 10/20/24 Range/Units 16:52 04:47 WBC 26.6 H 16.4 H D (3.6-11.0) Thou/mm3 Hgb 12.4 9.3 L D (12.0-16.0) g/dL Hct 46.0 32.7 L D (36.0-46.0) % Plt Count 540 H 442 H D (140-440) Thou/mm3 BMP 10/19/24 10/20/24 16:52 04:47 Sodium 130 L 136 Potassium 3.6 3.8 Chloride 103 110 H Carbon Dioxide 11.1 L* 15.6 L BUN 34 H 31 H Creatinine 2.6 H 2.0 H D Glucose 108 H 87 Calcium 9.6 8.7 Liver Function 10/19/24 10/20/24 Range/Units 16:52 04:47 Total Bilirubin 0.5 0.5 (0.3-1.2) mg/dL AST 51 H 73 H (0-34) U/L ALT 14 11 (10-49) U/L Alkaline Phosphatase 361 H 248 H D (46-116) U/L Albumin 5.7 H 4.4 D (3.5-5.0) gm/dL Urine 10/19/24 Range/Units 18:49 Urine Color Lt-Yellow (Lt Yel-Yel) Urine Clarity Turbid A (Clear/Hazy) Urine pH 6.5 (5.0-7.0) Ur Specific [place] 1.007 (1.001-1.035) Urine Protein 1+ A (Neg - Trace) Urine Glucose (UA) Negative (Negative) Quality Measures Quality Measures none Medications Home Medications and Allergies Home Medications ?Medication ?Instructions ?Recorded ?Confirmed ?Type pyridostigmine bromide 60 mg tablet 90 mg PO BID ##60 06/24/15 08/26/22 History ondansetron 4 mg disintegrating 4 mg PO BID PRN n/v #0 tabs 03/04/16 08/26/22 History tablet duloxetine 20 mg capsule,delayed 20 mg PO BID #0 caps 04/02/17 10/20/24 History release (Cymbalta) lorazepam 0.5 mg tablet 0.5 mg PO BID PRN Anxiety #0 tabs 04/02/17 10/20/24 History linaclotide 290 mcg capsule 290 mcg PO QDAY 01/18/19 10/20/24 History (Linzess) levothyroxine 25 mcg tablet 25 mcg PO QDAY 08/13/21 10/20/24 History cyanocobalamin (vitamin B-12) 1,000 mcg subcut QWEEK 08/26/22 08/26/22 History 1,000 mcg/mL injection solution cyclobenzaprine 5 mg tablet 5 mg PO HS PRN Spasms 08/26/22 10/20/24 History ergocalciferol (vitamin D2) 1,250 50,000 unit PO QWEEK 08/26/22 08/26/22 History mcg (50,000 unit) capsule estradiol 10 mcg vaginal tablet 10 mcg 2 X WEEKLY 08/26/22 08/26/22 History (Yuvafem) potassium chloride 20 mEq/15 mL 20 meq PO TID PRN cramping 08/26/22 08/26/22 History oral liquid sodium bicarbonate 650 mg tablet 1,950 mg PO BID 08/26/22 08/26/22 History buspirone 15 mg tablet 15 mg PO QDAY 10/20/24 10/20/24 History Allergies Allergy/AdvReac Type Severity Reaction Status Date / Time ciprofloxacin Allergy Severe SEVERE Verified 08/26/22 11:07 NAUSEA AND VOMITING Visit Medications Acetaminophen (Acetaminophen 500 Mg Tablet) 500 mg PO Q6H PRN PRN Reason: mild pain and or fever >100.2 Stop: 11/18/24 21:14 Duloxetine HCl (Duloxetine Hcl 20 Mg Capsule) 20 mg PO BID [facility] Stop: 11/19/24 08:59 Last Admin: 10/20/24 09:21 Dose: 20 mg Lactated Ringer's (Lactated Ringers) 1,000 mls @ 120 mls/hr IV .Q8H20M [facility] Stop: 11/18/24 21:05 Last Admin: 10/20/24 09:21 Dose: 120 mls/hr Levothyroxine Sodium (Levothyroxine Sodium 25 Mcg Tablet) 25 mcg PO ACBR [facility] Stop: 11/19/24 05:59 Last Admin: 10/20/24 05:12 Dose: Not Given Lorazepam (Lorazepam 0.5 Mg Tablet) 0.5 mg PO BID PRN PRN Reason: Anxiety Stop: 10/24/24 21:31 Last Admin: 10/20/24 04:15 Dose: 0.5 mg Morphine Sulfate (Morphine Sulf Inj 10 Mg/Ml Vial) 1 mg IVP Q4HR PRN PRN Reason: PAIN SCALE 7-10 (Severe Stop: 10/25/24 00:49 Last Admin: 10/20/24 09:34 Dose: 1 mg Ondansetron HCl (Ondansetron Inj 2 Mg/Ml Inj 2 Ml) 4 mg IV Q4H PRN; Protocol PRN Reason: NAUSEA Stop: 11/18/24 21:04 Last Admin: 10/20/24 01:07 Dose: 4 mg Potassium Chloride (Potassium Chloride 10% 20 Meq/15 Ml Udc) 20 meq PO BID [facility] Stop: 11/18/24 23:14 Last Admin: 10/20/24 09:21 Dose: 20 meq Pyridostigmine [place] (Pyridostigmine [place] 60 Mg Tablet) 90 mg PO BID [facility] Stop: 11/19/24 08:59 Last Admin: 10/20/24 09:21 Dose: 90 mg Discontinued Medications Acetaminophen (Acetaminophen 500 Mg Tablet) 500 mg PO Q6H PRN PRN Reason: mild pain and or fever >100.2 Stop: 11/18/24 21:14 Famotidine (Famotidine Inj 10 Mg/Ml Vial 2 Ml) 20 mg IVP X1 ONE Stop: 10/19/24 16:41 Last Admin: 10/19/24 17:04 Dose: 20 mg Lactated Ringer's (Lactated Ringers) 1,000 mls @ 999 mls/hr IV .Q1H1M ONE Stop: 10/19/24 17:40 Last Infusion: 10/19/24 18:27 Dose: Infused Lactated Ringer's (Lactated Ringers) 1,000 mls @ 999 mls/hr IV .Q1H1M ONE Stop: 10/19/24 17:40 Last Infusion: 10/19/24 18:27 Dose: Infused Sodium Chloride (Ns) 1,000 mls @ 125 mls/hr IV .Q8H ONE Stop: 10/20/24 03:07 Last Admin: 10/19/24 19:37 Dose: 125 mls/hr Piperacillin/Tazobactam/Dextrose (Zosyn) 3.375 gm in 50 mls @ 100 mls/hr IV X1 ONE Stop: 10/19/24 22:50 Last Admin: 10/19/24 23:18 Dose: 100 mls/hr Metoclopramide HCl (Metoclopramide Inj 5 Mg/Ml Vial 2 Ml) 10 mg IVP X1 ONE; Protocol Stop: 10/19/24 16:41 Last Admin: 10/19/24 17:03 Dose: 10 mg Morphine Sulfate (Morphine Sulf Inj 10 Mg/Ml Vial) 4 mg IVP X1 ONE Stop: 10/19/24 16:41 Last Admin: 10/19/24 17:02 Dose: 4 mg Morphine Sulfate (Morphine Sulf Inj 10 Mg/Ml Vial (Asd Use Only)) 1 mg IVP Q4H PRN PRN Reason: PAIN SCALE 7-10 (Severe Stop: 10/24/24 21:04 Potassium Chloride (Potassium Chloride 10% 20 Meq/15 Ml Udc) 20 meq PO TID PRN PRN Reason: cramping Stop: 11/18/24 21:31 Assessment & Plan Plan 48-year-old female with significant past medical history of constipation s/p ileostomy, gastroparesis, renal calculi, recurrent metabolic acidosis [secondary to tubular acidosis and GI losses], CKD stage III, multiple sclerosis, anxiety, depression, seizures, hypothyroidism presented to the hospital with complaints of severe abdominal pain, body pains and vomiting since 1 day and admitted for acute pancreatitis #Acute pancreatitis -Patient presented to the hospital with chief complaints of alcohol intake(2 drinks) followed by severe abdominal pain and body pains, later also developed vomitings -At the time of admission, patient vitals are stable -Labs showed WBC of 26.6, sodium 130, bicarb 11.1, BUN 34, creatinine 2.6, osmolality 269, AST 51, lipase 3. -CT abdomen/pelvis showed bilateral staghorn calculi Plan -Patient reported that her pain is improved and wants to have some liquid -Started her on liquid diet -Will continue her maintenance fluids at 125 mL/h, will decrease IV fluid once patient is able to tolerate oral liquid diet -Will advance her diet as tolerated -Morphine 1 Mg IV push every fourth hourly as needed # Acute on chronic kidney disease, likely prerenal -Patient's baseline creatinine is around 1.5-1.9 -Creatinine at the time of admission is 2.6, likely due to dehydration from pancreatitis and vomitings Plan -Will continue maintenance fluids -Started on clear liquids and will advance as tolerated -Will continue to monitor renal functions -Avoid nephrotoxic medications and renally dose medications # Metabolic acidosis -Patient had history of metabolic acidosis and also reported that she is taking sodium bicarbonate tablets at home--secondary to ileostomy losses -Bicarb at the time of admission is 11.1 -Patient received fluid boluses in the ED Plan -Will continue maintenance fluids -Will resume her sodium bicarb from home # Hypothyroidism -TSH is within normal limits -Will continue her home dose levothyroxine # Gastroparesis # Constipation s/p ileostomy # Renal calculi # Anxiety/depression # Multiple sclerosis -Patient is following Dr. Alcantar for the multiple sclerosis and getting Ocrevus injections every 6 months, last injection is in May 2024 -Will resume all her home medications Hospital Maintenance: Dispo: MedSurg DVT ppx: Not needed GI ppx: Not needed Diet: Clear liquid diet, advance as tolerated IV lines: Peripheral Code status: Full code Patient plan of care was discussed with the attending physician, Dr. Steven Sena, PGY1 Attending Provider Attestation/Addendum Patient seen and examined with resident physician Dr. Cardenas. Note reviewed, agree with findings and recommendations. Patient admitted with weakness, abdominal discomfort. Workup showed acute pancreatitis. Severe metabolic acidosis and MIKE. Continue with IV fluids. N.p.o. and pain management for now. Will monitor closely.
[2024-10-20 16:00] VITALS: BP 115/72; PULSE 79; RESP 19; TEMP 36.3; O2SAT 99
[2024-10-20 20:00] VITALS: BP 123/85; PULSE 71; RESP 18; TEMP 36.1; O2SAT 100
--- NOTE | 2024-10-20 20:26 | ESPR_ITS ---
Documentation for date of: 10/20/24 Subjective Subjective Interval history: Patient evaluated amylase lipase coming down Abdominal pain improving Exam Vital Signs Temp Pulse Resp BP Pulse Ox O2 Del Method 97.3 F 79 19 115/72 99 Room Air 10/20/24 16:00 10/20/24 16:00 10/20/24 16:00 10/20/24 16:00 10/20/24 16:00 10/20/24 16:00 Objective Labs 10/20/24 04:47 10/20/24 04:47 Labs: Laboratory Results - last 24 hr 10/19/24 10/20/24 16:52 04:47 WBC 16.4 H D RBC 4.82 Hgb 9.3 L D Hct 32.7 L D MCV 68 L MCH 19.3 L MCHC 28.4 L RDW Std Deviation 45.1 Plt Count 442 H D Neut % (Auto) 75 Lymph % (Auto) 14 [place] % (Auto) 9 Eos % (Auto) 1 Baso % (Auto) 1 Neut # (Auto) 12.3 H Lymph # (Auto) 2.2 [place] # (Auto) 1.5 H Eos # (Auto) 0.1 Baso # (Auto) 0.2 Immature Gran # (Auto) 0.05 H Absolute Nucleated RBC 0.02 H Immature Gran % 0 Nucleated RBC % 0 Sodium 136 Potassium 3.8 Chloride 110 H Carbon Dioxide 15.6 L Anion Gap 10 BUN 31 H Creatinine 2.0 H D Estim Creat Clear Calc 24.9 L eGFR 30 L BUN/Creatinine Ratio 16 Glucose 87 Calculated Osmolality 277 Calcium 8.7 Corrected Calcium 8.7 Total Bilirubin 0.5 AST 73 H ALT 11 Alkaline Phosphatase 248 H D Total Protein 6.5 Albumin 4.4 D Globulin 2.1 L Albumin/Globulin Ratio 2.1 Triglycerides 133 Cholesterol 314 H LDL Cholesterol, Calc 128 HDL Cholesterol 159 H Cholesterol/HDL Ratio 2.0 L Amylase 517 H* Lipase 117 H D Impressions Impression: Pancreatitis most likely alcohol induced but gallbladder dysfunction should also be considered Plan CCK HIDA scan with ejection fraction Tuesday Assessment & Plan A&P Narrative # Acute pancreatiti most likely alcohol induced although biliary dyskinesia cannot be ruled out Conservative management with IV fluids and pain control Will follow # Pain abdomen secondary to 1 # Renal insufficiency due to dehydration # Longstanding gastroparesis # Status post ileostomy Time Spent With Patient Time: Total time spent is greater than 50% in coordination of care (as documented) at patient's floor/unit and/or counseling patient:
--- NOTE | 2024-10-20 20:28 | XR_ITS ---
Examination: ADONAY, hepatobiliary radioisotope scan Gallbladder ejection fraction study. Date and time of exam: October 23, 2024 1527 hours INDICATIONS: Severe abdominal pain vomiting this week Technique: 5.6 mCi of 99M Hepatolite administered. Serial imaging then obtained from immediate through 60 minutes. 1.0 mcg selective catheter Kinevac administered for gallbladder ejection fraction study. Findings: Radioisotope activity within the liver is reasonably homogenous. Gallbladder, common bile duct small bowel activity noted Impression: Gallbladder activity Normal gallbladder ejection fraction, 40%, normal greater than 35%
[2024-10-21] VITALS: BP 109/69; PULSE 74; RESP 18; TEMP 36.1; O2SAT 98
[2024-10-21] MEDS: RINGERS LACTATED 1000 ML 1,000 ML 120 ML IV (02:17)
[2024-10-21 04:00] VITALS: BP 94/49; PULSE 67; RESP 18; TEMP 36.1; O2SAT 100
[2024-10-21 06:01] LABS: Basophils # (Auto) 0.2 Thou/mm3 (0.0-0.2); Basophils % (Auto) 2 % (0-2.5); Eosinophils # (Auto) 0.2 Thou/mm3 (0.0-0.5); Eosinophils % (Auto) 2 % (0-10); Hematocrit 32.4 % (36.0-46.0); Immature Granulocytes % (Auto) 0 % (0-0); Immature Granulocytes Auto 0.02 Thou/mm3 (0.00-0.00); Lymphocytes # (Auto) 2.3 Thou/mm3 (1.0-4.8); Lymphocytes % (Auto) 24 % (10-50); Mean Corpuscular HGB Conc 26.9 g/dl (31.0-37.0); Mean Corpuscular Hemoglobin 19.2 pg (25.0-35.0); Mean Corpuscular Volume 72 fL (80-100); Monocytes # (Auto) 0.9 Thou/mm3 (0.0-0.8); Monocytes % (Auto) 10 % (0-12); Neutrophils # (Auto) 5.9 Thou/mm3 (1.8-7.7); Neutrophils % (Auto) 62 % (37-80); Nucleated Red Blood Cell % 0 /100 WBC (0); Platelet Count 343 Thou/mm3 (140-440); RDW Standard Deviation 47.8 fL (36.4-46.3); Red Blood Count 4.52 Miln/mm3 (4.00-5.20); White Blood Count 9.4 Thou/mm3 (3.6-11.0)
[2024-10-21 06:49] LABS: Alanine Aminotransferase 11 U/L (10-49); Albumin, Serum 3.8 gm/dL (3.5-5.0); Alkaline Phosphatase 210 U/L (46-116); Amylase 410 U/L (30-118); Anion Gap 10 (7-16); Aspartate Amino Transferase 61 U/L (0-34); BUN/Creatinine Ratio 14 Ratio (12-20); Bilirubin,Total 0.4 mg/dL (0.3-1.2); Blood Urea Nitrogen 19 mg/dL (9-23); Calcium 8.1 mg/dL (8.3-10.6); Calcium (Corrected) 8.3 mg/dL (8.5-10.1); Carbon Dioxide 18.8 mMol/L (20.0-31.0); Chloride 113 mMol/L (98-107); Creatinine (Component) 1.4 mg/dL (0.6-1.3); Estimated Creatinine Clearance 35.6 mL/min (>60); Globulin 1.9 gm/dL (2.3-3.5); Glucose 84 mg/dL (74-106); Lipase 209 U/L (12-53); Osmolality,Calculated 284 (275-295); Potassium 3.9 mMol/L (3.4-5.1); Sodium 142 mMol/L (136-145); Total Protein 5.7 gm/dL (5.7-8.2); eGFR 46 See Note
[2024-10-21] MEDS: LEVOTHYROXINE SODIUM 25 MCG TABLET PO (07:05)
[2024-10-21 07:17] LABS: Hemoglobin 8.7 g/dL (12.0-16.0)
[2024-10-21 07:37] VITALS: BP 108/58; PULSE 77; RESP 15; TEMP 36.3; O2SAT 99
[2024-10-21] MEDS: pyRIDostigmine bromide 60 MG TABLET 90 MG PO ×2 (08:38→20:25)
[2024-10-21] MEDS: BusPIRone HCL 5 MG TABLET 15 MG PO (08:38)
[2024-10-21] MEDS: POTASSIUM CHLORIDE 10% 20 MEQ/15 ML UDC PO ×2 (08:38→20:24)
[2024-10-21] MEDS: DULoxetine HCL 20 MG CAPSULE PO ×2 (08:39→20:25)
--- NOTE | 2024-10-21 09:53 | ESPR_ITS ---
Documentation for date of: 10/21/24 Subjective Subjective Interval history: 10/20/24 HPI History of Present Illness Chief complaint: Abdominal pain History of present illness: Ms. Goyal is a 48-year-old female with extensive past medical history of constipation s/p ileostomy, gastroparesis, renal calculi, recurrent metabolic acidosis [secondary to tubular acidosis and GI losses], CKD stage III, multiple sclerosis(under Dr. Vega-on [facility]), anxiety, depression, seizures, hypothyroidism presented to the hospital with complaints of severe abdominal pain, body pains and vomiting since 1 day. Patient was apparently normal 1 day back, stated that she had to smirnoff drinks and later she developed severe abdominal pain with bodyaches, followed by 2 episodes of vomitings, as the patient is not feeling well she came to the hospital ED Course: -Initial vitals were stable -Labs significant forWBC 16.4, Hb 9.3, platelets 442, sodium 130, potassium 3.6, bicarb 11.1, BUN 34, creatinine 2.6, glucose 108, osmolality 269, AST 51, ALT 14, ALP 361, lipase 2053 -Abdomen/pelvis CT showed numerous bilateral staghorn calculi, no hydronephrosis or ureteral calculi noted, right ileostomy, numerous pelvic phleboliths. -In the ED, patient was given zosyn and LR -Patient was admitted for Acute pancreatitis PMH: constipation s/p ileostomy, gastroparesis, renal calculi, recurrent metabolic acidosis [secondary to tubular acidosis and GI losses], CKD stage III, multiple sclerosis, anxiety, depression, seizures, hypothyroidism PSH: Ileostomy Social Hx: Denies alcohol, smoking or other drug abuse. Lives at home with and children 10/21/2024 patient currently seen in medical floor. Still having significant cramping and weakness. Abdominal pain mild. Admitted with acute pancreatitis. Dr. Shirley saw the patient and ordered HIDA scan for tomorrow. Recommended clear liquid diet. Review of Systems Review of Systems Narrative Review of Systems: Constitutional: No Weight Change, No Fever, No Chills, No Night Sweats, Fatigue, Malaise ENT/Mouth: No Hearing Changes, No Ear Pain, No Nasal Congestion, No Sinus Pain, No Hoarseness, No sore throat, No Rhinorrhea, No Swallowing Difficulty Eyes: No Eye Pain, No Swelling, No Redness, No Foreign Body, No Discharge, No Vision Changes Cardiovascular: No Chest Pain, No SOB, No PND, No Dyspnea on Exertion, No Orthopnea, No Edema, No Palpitations Respiratory: No Cough, No Sputum, No Wheezing, No Dyspnea Gastrointestinal: Nausea, Vomiting, No Diarrhea, No Constipation, No Pain, No Heartburn, Anorexia, No Dysphagia, No Hematochezia, No Melena, No Flatulence, No Jaundice . Positive ileostomy Genitourinary: No Dysuria, No Urinary Frequency, No Hematuria, No Urinary Incontinence, No Urgency, No Flank Pain, No Urinary Flow Changes, No Hesitancy Musculoskeletal: No Arthralgias, No Myalgias, No Joint Swelling, No Joint Stiffness, No Back Pain, No Neck Pain, No Injury History Skin: No Skin Lesions, No Pruritis Neuro: No Weakness, No Numbness, No Paresthesias, No Loss of Consciousness, No Syncope, No Dizziness, No Headache, No Coordination Changes, No Recent Falls Exam Vital Signs Temp Pulse Resp BP Pulse Ox O2 Del Method 36.3 C 77 15 108/58 L 99 Room Air 10/21/24 07:37 10/21/24 07:37 10/21/24 07:37 10/21/24 07:37 10/21/24 07:37 10/21/24 07:37 Narrative Exam General: Awake. HEENT: Normocephalic, atraumatic, mucous membranes moist. Heart: Regular rate and rhythm, no murmurs. Lungs: Clear to auscultation with no wheezing or crackles. Abdomen: Soft, nondistended, mild tenderness, positive bowel sounds. ?No guarding or rebound tenderness.++Ileostomy Neurologic: Alert and oriented x3, no gross neurological deficit, and patient able to move all 4 extremities. Extremities: No edema. Skin: No rash or ecchymoses. Objective Labs 10/23/24 05:25 10/22/24 04:51 Labs: Laboratory Results - last 24 hr 10/21/24 05:05 WBC 9.4 D RBC 4.52 Hgb 8.7 L Hct 32.4 L MCV 72 L MCH 19.2 L MCHC 26.9 L RDW Std Deviation 47.8 H Plt Count 343 D Neut % (Auto) 62 Lymph % (Auto) 24 [place] % (Auto) 10 Eos % (Auto) 2 Baso % (Auto) 2 Neut # (Auto) 5.9 Lymph # (Auto) 2.3 [place] # (Auto) 0.9 H Eos # (Auto) 0.2 Baso # (Auto) 0.2 Immature Gran # (Auto) 0.02 H Absolute Nucleated RBC 0.00 Immature Gran % 0 Nucleated RBC % 0 Sodium 142 Potassium 3.9 Chloride 113 H Carbon Dioxide 18.8 L Anion Gap 10 BUN 19 Creatinine 1.4 H D Estim Creat Clear Calc 35.6 L eGFR 46 L BUN/Creatinine Ratio 14 Glucose 84 Calculated Osmolality 284 Calcium 8.1 L Corrected Calcium 8.3 L Total Bilirubin 0.4 AST 61 H ALT 11 Alkaline Phosphatase 210 H D Total Protein 5.7 Albumin 3.8 D Globulin 1.9 L Albumin/Globulin Ratio 2.0 Amylase 410 H Lipase 209 H D Assessment & Plan Additional Assessment & Plan Additional Plan: 48-year-old female with significant past medical history of constipation s/p ileostomy, gastroparesis, renal calculi, recurrent metabolic acidosis [secondary to tubular acidosis and GI losses], CKD stage III, multiple sclerosis, anxiety, depression, seizures, hypothyroidism presented to the hospital with complaints of severe abdominal pain, body pains and vomiting since 1 day and admitted for acute pancreatitis #Acute pancreatitis -Patient presented to the hospital with chief complaints of alcohol intake(2 drinks) followed by severe abdominal pain and body pains, later also developed vomitings -At the time of admission, patient vitals are stable -Labs showed WBC of 26.6, sodium 130, bicarb 11.1, BUN 34, creatinine 2.6, osmolality 269, AST 51, lipase 2053. -CT abdomen/pelvis showed bilateral staghorn calculi Plan -Patient reported that her pain is improved and wants to have some liquid -Started her on liquid diet- seen by Dr. hSirley -Will continue her maintenance fluids at 125 mL/h, will decrease IV fluid once patient is able to tolerate oral liquid diet -Will advance her diet as tolerated -Morphine 1 Mg IV push every fourth hourly as needed # Acute on chronic kidney disease, likely prerenal -Patient's baseline creatinine is around 1.5-1.9 -Creatinine at the time of admission is 2.6, likely due to dehydration from pancreatitis and vomitings Plan -Will continue maintenance fluids -Started on clear liquids and will advance as tolerated -Will continue to monitor renal functions -Avoid nephrotoxic medications and renally dose medications # Metabolic acidosis -Patient had history of metabolic acidosis and also reported that she is taking sodium bicarbonate tablets at home--secondary to ileostomy losses -Bicarb at the time of admission is 11.1-better Plan -Will continue maintenance fluids -Will resume her sodium bicarb from home # Hypothyroidism -TSH is within normal limits -Will continue her home dose levothyroxine # Gastroparesis # Constipation s/p ileostomy # Renal calculi # Anxiety/depression # Multiple sclerosis -Patient is following Dr. Alcantar for the multiple sclerosis and getting Ocrevus injections every 6 months, last injection is in May 2024 -Will resume all her home medications Hospital Maintenance: Dispo: MedSurg DVT ppx: Not needed GI ppx: Not needed Diet: Clear liquid diet, advance as tolerated IV lines: Peripheral Code status: Full code Quality - progress note Quality Measures Quality Measures: VTE prophylaxis Reason for Continued Stay Reason for Continued Stay: further monitoring
--- NOTE | 2024-10-21 10:52 | PC.NURSE ---
Notified MD De Jesus of pts complains of vaginal discomfort (uti symptoms) per md start Pyridium 100 mg bid until uc result.
[2024-10-21] MEDS: PHENAZOPYRIDINE HCL 100 MG TABLET PO ×2 (11:16→20:25)
[2024-10-21 11:48] VITALS: BP 123/69; PULSE 66; RESP 16; TEMP 36.4; O2SAT 100
--- NOTE | 2024-10-21 13:10 | PC.SS ---
Patient Carol Goyal is a 89old female admitted for Acute Pancreatitis, Acute Renal failure. Patient is alert, oriented, and able to confirm all addresses, contact information, and PCP as Dr Harris. Patient reports that she is independent at home and has no additional needs at this time. Patient reports her Abel Goyal is her emergency decision maker [phone] Discharge options were discussed and the chosen disposition is for the patient to return home when medically cleared. SS will follow up for any additional services. Discharge plan: Home Next of Kin: ,Abel Goyal
[2024-10-21 16:00] VITALS: BP 96/62; PULSE 79; RESP 16; TEMP 36.4; O2SAT 99
--- NOTE | 2024-10-21 16:03 | PD.IMPROG ---
Documentation for date of: 10/21/24 Subjective Subjective Interval history: Dropping hemoglobin hematocrit due to improving BUN/creatinine which is now down to 19 and 1.4 Amylase remain elevated at 410 lipase went up to 209 Will get a CCK HIDA scan with ejection fraction of the gallbladder to look for any further evidence of biliary dyskinesia Exam Vital Signs Temp Pulse Resp BP Pulse Ox O2 Del Method 97.6 F 79 16 96/62 99 Room Air 10/21/24 16:00 10/21/24 16:00 10/21/24 16:00 10/21/24 16:00 10/21/24 16:00 10/21/24 16:00 Objective Labs 10/21/24 05:05 10/21/24 05:05 Labs: Laboratory Results - last 24 hr 10/21/24 05:05 WBC 9.4 D RBC 4.52 Hgb 8.7 L Hct 32.4 L MCV 72 L MCH 19.2 L MCHC 26.9 L RDW Std Deviation 47.8 H Plt Count 343 D Neut % (Auto) 62 Lymph % (Auto) 24 [place] % (Auto) 10 Eos % (Auto) 2 Baso % (Auto) 2 Neut # (Auto) 5.9 Lymph # (Auto) 2.3 [place] # (Auto) 0.9 H Eos # (Auto) 0.2 Baso # (Auto) 0.2 Immature Gran # (Auto) 0.02 H Absolute Nucleated RBC 0.00 Immature Gran % 0 Nucleated RBC % 0 Sodium 142 Potassium 3.9 Chloride 113 H Carbon Dioxide 18.8 L Anion Gap 10 BUN 19 Creatinine 1.4 H D Estim Creat Clear Calc 35.6 L eGFR 46 L BUN/Creatinine Ratio 14 Glucose 84 Calculated Osmolality 284 Calcium 8.1 L Corrected Calcium 8.3 L Total Bilirubin 0.4 AST 61 H ALT 11 Alkaline Phosphatase 210 H D Total Protein 5.7 Albumin 3.8 D Globulin 1.9 L Albumin/Globulin Ratio 2.0 Amylase 410 H Lipase 209 H D Impressions Impression: # Most likely alcohol induced pancreatitis # Rule out biliary pancreatitis CCK HIDA scan with ejection fraction of the gallbladder Assessment & Plan A&P Narrative # Acute pancreatiti most likely alcohol induced although biliary dyskinesia cannot be ruled out Conservative management with IV fluids and pain control Will follow # Pain abdomen secondary to 1 # Renal insufficiency due to dehydration # Longstanding gastroparesis # Status post ileostomy Time Spent With Patient Time: Total time spent is greater than 50% in coordination of care (as documented) at patient's floor/unit and/or counseling patient:
[2024-10-21 20:00] VITALS: BP 122/73; PULSE 71; RESP 18; TEMP 36.1; O2SAT 100
[2024-10-21] MEDS: LORazepam 0.5 MG TABLET PO (21:58)
[2024-10-22] VITALS (7 sets, daily range): BP systolic 95–124; BP diastolic 62–77; PULSE 67–93; RESP 18; TEMP 36.1–36.6; O2SAT 92–99
[2024-10-22 05:37] LABS: Basophils # (Auto) 0.1 Thou/mm3 (0.0-0.2); Basophils % (Auto) 1 % (0-2.5); Eosinophils # (Auto) 0.2 Thou/mm3 (0.0-0.5); Eosinophils % (Auto) 2 % (0-10); Hematocrit 30.2 % (36.0-46.0); Immature Granulocytes % (Auto) 0 % (0-0); Immature Granulocytes Auto 0.02 Thou/mm3 (0.00-0.00); Lymphocytes # (Auto) 1.6 Thou/mm3 (1.0-4.8); Lymphocytes % (Auto) 20 % (10-50); Mean Corpuscular HGB Conc 27.2 g/dl (31.0-37.0); Mean Corpuscular Hemoglobin 19.1 pg (25.0-35.0); Mean Corpuscular Volume 70 fL (80-100); Monocytes # (Auto) 0.8 Thou/mm3 (0.0-0.8); Monocytes % (Auto) 9 % (0-12); Neutrophils # (Auto) 5.5 Thou/mm3 (1.8-7.7); Neutrophils % (Auto) 68 % (37-80); Nucleated Red Blood Cell % 0 /100 WBC (0); Platelet Count 226 Thou/mm3 (140-440); RDW Standard Deviation 47.2 fL (36.4-46.3); Red Blood Count 4.29 Miln/mm3 (4.00-5.20); White Blood Count 8.1 Thou/mm3 (3.6-11.0)
[2024-10-22 05:49] LABS: Hemoglobin 8.2 g/dL (12.0-16.0)
[2024-10-22 06:15] LABS: Alanine Aminotransferase 10 U/L (10-49); Albumin, Serum 3.5 gm/dL (3.5-5.0); Albumin/Globulin Ratio 2.1 (1.2-2.2); Alkaline Phosphatase 181 U/L (46-116); Amylase 214 U/L (30-118); Anion Gap 8 (7-16); Aspartate Amino Transferase 50 U/L (0-34); BUN/Creatinine Ratio 8 Ratio (12-20); Bilirubin,Total 0.4 mg/dL (0.3-1.2); Blood Urea Nitrogen 9 mg/dL (9-23); Calcium 7.8 mg/dL (8.3-10.6); Calcium (Corrected) 8.2 mg/dL (8.5-10.1); Carbon Dioxide 21.7 mMol/L (20.0-31.0); Chloride 111 mMol/L (98-107); Creatinine (Component) 1.1 mg/dL (0.6-1.3); Estimated Creatinine Clearance 45.3 mL/min (>60); Globulin 1.7 gm/dL (2.3-3.5); Glucose 94 mg/dL (74-106); Lipase 46 U/L (12-53); Osmolality,Calculated 279 (275-295); Potassium 2.8 mMol/L (3.4-5.1); Sodium 141 mMol/L (136-145); Total Protein 5.2 gm/dL (5.7-8.2); eGFR > 60 See Note
[2024-10-22] MEDS: LEVOTHYROXINE SODIUM 25 MCG TABLET PO (06:32)
--- NOTE | 2024-10-22 11:49 | PD.NEPHPROG ---
Documentation for date of: 10/22/24 Subjective Subjective Interval history: HPI History of Present Illness Chief complaint: Abdominal pain History of present illness: Ms. Goyal is a 48-year-old female with extensive past medical history of constipation s/p ileostomy, gastroparesis, renal calculi, recurrent metabolic acidosis [secondary to tubular acidosis and GI losses], CKD stage III, multiple sclerosis(under [facility]. [facility]), anxiety, depression, seizures, hypothyroidism presented to the hospital with complaints of severe abdominal pain, body pains and vomiting since 1 day. Patient was apparently normal 1 day back, stated that she had to smirnoff drinks and later she developed severe abdominal pain with bodyaches, followed by 2 episodes of vomitings, as the patient is not feeling well she came to the hospital ED Course: -Initial vitals were stable -Labs significant for WBC 16.4, Hb 9.3, platelets 442, sodium 130, potassium 3.6, bicarb 11.1, BUN 34, creatinine 2.6, glucose 108, osmolality 269, AST 51, ALT 14, ALP 361, lipase 2053 -Abdomen/pelvis CT showed numerous bilateral staghorn calculi, no hydronephrosis or ureteral calculi noted, right ileostomy, numerous pelvic phleboliths. -In the ED, patient was given zosyn and LR -Patient was admitted for Acute pancreatitis PMH: constipation s/p ileostomy, gastroparesis, renal calculi, recurrent metabolic acidosis [secondary to tubular acidosis and GI losses], CKD stage III, multiple sclerosis, anxiety, depression, seizures, hypothyroidism PSH: Ileostomy Social Hx: Denies alcohol, smoking or other drug abuse. Lives at home with and children 10/22/2024 Seen in medical floor. denies any nausea. tolerating clear liquid diet. HIDA will be done in am. Under GI. amylase/lipase- better Exam Vital Signs Temp Pulse Resp BP Pulse Ox O2 Del Method 36.2 C 93 18 105/62 92 L Room Air 10/22/24 08:00 10/22/24 08:00 10/22/24 08:00 10/22/24 08:00 10/22/24 08:00 10/22/24 08:00 Narrative Exam General: Awake. HEENT: Normocephalic, atraumatic, mucous membranes moist. Heart: Regular rate and rhythm, no murmurs. Lungs: Clear to auscultation with no wheezing or crackles. Abdomen: Soft, nondistended, mild tenderness, positive bowel sounds. ?No guarding or rebound tenderness.++Ileostomy Neurologic: Alert and oriented x3, no gross neurological deficit, and patient able to move all 4 extremities. Extremities: No edema. Skin: No rash or ecchymoses. Objective Labs 10/23/24 05:25 10/22/24 04:51 Labs: Laboratory Results - last 24 hr 10/22/24 04:51 WBC 8.1 RBC 4.29 Hgb 8.2 L Hct 30.2 L MCV 70 L MCH 19.1 L MCHC 27.2 L RDW Std Deviation 47.2 H Plt Count 226 D Neut % (Auto) 68 Lymph % (Auto) 20 [place] % (Auto) 9 Eos % (Auto) 2 Baso % (Auto) 1 Neut # (Auto) 5.5 Lymph # (Auto) 1.6 [place] # (Auto) 0.8 Eos # (Auto) 0.2 Baso # (Auto) 0.1 Immature Gran # (Auto) 0.02 H Absolute Nucleated RBC 0.00 Immature Gran % 0 Nucleated RBC % 0 Sodium 141 Potassium 2.8 L D Chloride 111 H Carbon Dioxide 21.7 Anion Gap 8 BUN 9 Creatinine 1.1 Estim Creat Clear Calc 45.3 L eGFR > 60 BUN/Creatinine Ratio 8 L Glucose 94 Calculated Osmolality 279 Calcium 7.8 L Corrected Calcium 8.2 L Total Bilirubin 0.4 AST 50 H ALT 10 Alkaline Phosphatase 181 H D Total Protein 5.2 L Albumin 3.5 Globulin 1.7 L Albumin/Globulin Ratio 2.1 Amylase 214 H Lipase 46 D Assessment & Plan Additional Assessment & Plan Additional Plan: 48-year-old female with significant past medical history of constipation s/p ileostomy, gastroparesis, renal calculi, recurrent metabolic acidosis [secondary to tubular acidosis and GI losses], CKD stage III, multiple sclerosis, anxiety, depression, seizures, hypothyroidism presented to the hospital with complaints of severe abdominal pain, body pains and vomiting since 1 day and admitted for acute pancreatitis #Acute pancreatitis -Patient presented to the hospital with chief complaints of alcohol intake(2 drinks) followed by severe abdominal pain and body pains, later also developed vomitings -At the time of admission, patient vitals are stable -Labs showed WBC of 26.6, sodium 130, bicarb 11.1, BUN 34, creatinine 2.6, osmolality 269, AST 51, lipase 2052. -CT abdomen/pelvis showed bilateral staghorn calculi Plan -Patient reported that her pain is improved and labs are better -Started her on soft diet -Will dc maintenance fluids at 125 mL/h -Morphine 1 Mg IV push every fourth hourly as needed # Acute on chronic kidney disease, likely prerenal -Patient's baseline creatinine is around 1.5-1.9 -Creatinine at the time of admission is 2.6, likely due to dehydration from pancreatitis and vomitings Plan -Will continue maintenance fluids -Started on clear liquids and will advance as tolerated -Will continue to monitor renal functions -Avoid nephrotoxic medications and renally dose medications # Metabolic acidosis -Patient had history of metabolic acidosis and also reported that she is taking sodium bicarbonate tablets at home--secondary to ileostomy losses -Bicarb at the time of admission is 11.1-18 Plan -Will continue maintenance fluids -Will resume her sodium bicarb from home # Hypothyroidism -TSH is within normal limits -Will continue her home dose levothyroxine # Gastroparesis # Constipation s/p ileostomy # Renal calculi # Anxiety/depression # Multiple sclerosis -Patient is following Dr. Alcantar for the multiple sclerosis and getting Ocrevus injections every 6 months, last injection is in May 2024 -Will resume all her home medications Hospital Maintenance: Dispo: MedSurg DVT ppx: Not needed GI ppx: Not needed Diet: soft diet IV lines: Peripheral Code status: Full code Quality - progress note Quality Measures Quality Measures: VTE prophylaxis Reason for Continued Stay Reason for Continued Stay: further monitoring
--- NOTE | 2024-10-22 12:05 | PD.IMPROG ---
Documentation for date of: 10/22/24 Subjective Subjective Interval history: CCK HIDA scan with ejection fraction pending Exam Vital Signs Temp Pulse Resp BP Pulse Ox O2 Del Method 97.1 F 93 18 105/62 92 L Room Air 10/22/24 08:00 10/22/24 08:00 10/22/24 08:00 10/22/24 08:00 10/22/24 08:00 10/22/24 08:00 Objective Labs 10/22/24 04:51 10/22/24 04:51 Labs: Laboratory Results - last 24 hr 10/22/24 04:51 WBC 8.1 RBC 4.29 Hgb 8.2 L Hct 30.2 L MCV 70 L MCH 19.1 L MCHC 27.2 L RDW Std Deviation 47.2 H Plt Count 226 D Neut % (Auto) 68 Lymph % (Auto) 20 [place] % (Auto) 9 Eos % (Auto) 2 Baso % (Auto) 1 Neut # (Auto) 5.5 Lymph # (Auto) 1.6 [place] # (Auto) 0.8 Eos # (Auto) 0.2 Baso # (Auto) 0.1 Immature Gran # (Auto) 0.02 H Absolute Nucleated RBC 0.00 Immature Gran % 0 Nucleated RBC % 0 Sodium 141 Potassium 2.8 L D Chloride 111 H Carbon Dioxide 21.7 Anion Gap 8 BUN 9 Creatinine 1.1 Estim Creat Clear Calc 45.3 L eGFR > 60 BUN/Creatinine Ratio 8 L Glucose 94 Calculated Osmolality 279 Calcium 7.8 L Corrected Calcium 8.2 L Total Bilirubin 0.4 AST 50 H ALT 10 Alkaline Phosphatase 181 H D Total Protein 5.2 L Albumin 3.5 Globulin 1.7 L Albumin/Globulin Ratio 2.1 Amylase 214 H Lipase 46 D Impressions Impression: Acute pancreatitis most likely alcohol induced rule out biliary dyskinesia CCK HIDA scan with ejection fraction pending Assessment & Plan A&P Narrative # Acute pancreatiti most likely alcohol induced although biliary dyskinesia cannot be ruled out Conservative management with IV fluids and pain control Will follow # Pain abdomen secondary to 1 # Renal insufficiency due to dehydration # Longstanding gastroparesis # Status post ileostomy Time Spent With Patient Time: Total time spent is greater than 50% in coordination of care (as documented) at patient's floor/unit and/or counseling patient:
--- NOTE | 2024-10-22 13:07 | PC.SS ---
Rounding: Conservative management with IV fluids and pain control
--- NOTE | 2024-10-22 14:15 | PC.PT ---
As per nursing staff, Patient is I with ambulation inside the room. Will cancel PT evaluation secondary to patient is at her PLOF.
[2024-10-22] MEDS: BusPIRone HCL 5 MG TABLET 15 MG PO (14:25)
[2024-10-22] MEDS: DULoxetine HCL 20 MG CAPSULE PO ×2 (14:25→20:06)
[2024-10-22] MEDS: POTASSIUM CHLORIDE 10% 20 MEQ/15 ML UDC PO ×2 (14:26→21:21)
[2024-10-22] MEDS: PHENAZOPYRIDINE HCL 100 MG TABLET PO ×2 (14:27→20:07)
[2024-10-22] MEDS: pyRIDostigmine bromide 60 MG TABLET 90 MG PO ×2 (14:27→20:07)
[2024-10-22] MEDS: LORazepam 0.5 MG TABLET PO (21:22)
[2024-10-23 04:00] VITALS: BP 90/66; PULSE 61; RESP 16; TEMP 36.6; O2SAT 97
[2024-10-23 06:17] LABS: Basophils # (Auto) 0.1 Thou/mm3 (0.0-0.2); Basophils % (Auto) 1 % (0-2.5); Eosinophils # (Auto) 0.2 Thou/mm3 (0.0-0.5); Eosinophils % (Auto) 3 % (0-10); Hematocrit 32.5 % (36.0-46.0); Immature Granulocytes % (Auto) 0 % (0-0); Immature Granulocytes Auto 0.01 Thou/mm3 (0.00-0.00); Lymphocytes # (Auto) 1.7 Thou/mm3 (1.0-4.8); Lymphocytes % (Auto) 24 % (10-50); Mean Corpuscular HGB Conc 27.1 g/dl (31.0-37.0); Mean Corpuscular Hemoglobin 19.2 pg (25.0-35.0); Mean Corpuscular Volume 71 fL (80-100); Monocytes # (Auto) 0.9 Thou/mm3 (0.0-0.8); Monocytes % (Auto) 12 % (0-12); Neutrophils # (Auto) 4.3 Thou/mm3 (1.8-7.7); Neutrophils % (Auto) 60 % (37-80); Nucleated Red Blood Cell % 0 /100 WBC (0); Platelet Count 317 Thou/mm3 (140-440); RDW Standard Deviation 47.8 fL (36.4-46.3); Red Blood Count 4.59 Miln/mm3 (4.00-5.20); White Blood Count 7.2 Thou/mm3 (3.6-11.0)
[2024-10-23 06:18] LABS: Hemoglobin 8.8 g/dL (12.0-16.0)
[2024-10-23 07:01] LABS: Alanine Aminotransferase 10 U/L (10-49); Albumin, Serum 3.7 gm/dL (3.5-5.0); Albumin/Globulin Ratio 2.1 (1.2-2.2); Alkaline Phosphatase 186 U/L (46-116); Amylase 234 U/L (30-118); Anion Gap 7 (7-16); Aspartate Amino Transferase 40 U/L (0-34); BUN/Creatinine Ratio 8 Ratio (12-20); Bilirubin,Total 0.5 mg/dL (0.3-1.2); Blood Urea Nitrogen 9 mg/dL (9-23); Calcium 8.3 mg/dL (8.3-10.6); Calcium (Corrected) 8.5 mg/dL (8.5-10.1); Carbon Dioxide 20.7 mMol/L (20.0-31.0); Chloride 112 mMol/L (98-107); Creatinine (Component) 1.2 mg/dL (0.6-1.3); Estimated Creatinine Clearance 41.6 mL/min (>60); Globulin 1.8 gm/dL (2.3-3.5); Glucose 80 mg/dL (74-106); Lipase 190 U/L (12-53); Osmolality,Calculated 277 (275-295); Potassium 3.5 mMol/L (3.4-5.1); Sodium 140 mMol/L (136-145); Total Protein 5.5 gm/dL (5.7-8.2); eGFR 56 See Note
[2024-10-23 08:00] VITALS: BP 105/58; PULSE 69; RESP 17; TEMP 36.6; O2SAT 99
[2024-10-23 12:00] VITALS: BP 98/64; PULSE 73; RESP 17; TEMP 36.3; O2SAT 99
[2024-10-23 16:00] VITALS: BP 121/79; PULSE 92; RESP 18; TEMP 36.2; O2SAT 100
--- NOTE | 2024-10-23 17:03 | ESPR_ITS ---
Documentation for date of: 10/23/24 Subjective Subjective Interval history: Ms. Goyal is a 48-year-old female with extensive past medical history of constipation s/p ileostomy, gastroparesis, renal calculi, recurrent metabolic acidosis [secondary to tubular acidosis and GI losses], CKD stage III, multiple sclerosis(under Dr. Vega[facility]), anxiety, depression, seizures, hypothyroidism presented to the hospital with complaints of severe abdominal pain, body pains and vomiting since 1 day. Patient was apparently normal 1 day back, stated that she had to smirnoff drinks and later she developed severe abdominal pain with bodyaches, followed by 2 episodes of vomitings, as the patient is not feeling well she came to the hospital ED Course: -Initial vitals were stable -Labs significant for WBC 16.4, Hb 9.3, platelets 442, sodium 130, potassium 3.6, bicarb 11.1, BUN 34, creatinine 2.6, glucose 108, osmolality 269, AST 51, ALT 14, ALP 361, lipase 2053 -Abdomen/pelvis CT showed numerous bilateral staghorn calculi, no hydronephrosis or ureteral calculi noted, right ileostomy, numerous pelvic phleboliths. -In the ED, patient was given zosyn and LR -Patient was admitted for Acute pancreatitis PMH: constipation s/p ileostomy, gastroparesis, renal calculi, recurrent metabolic acidosis [secondary to tubular acidosis and GI losses], CKD stage III, multiple sclerosis, anxiety, depression, seizures, hypothyroidism PSH: Ileostomy Social Hx: Denies alcohol, smoking or other drug abuse. Lives at home with and children 10/22/2024 Seen in medical floor. denies any nausea. tolerating clear liquid diet. HIDA will be done in am. Under GI. amylase/lipase- better. 10/23/2024: No changes in current management. No acute overnight events. Denies new symptoms of worsening of symptoms. Currently pending HIDA scan. Patient denies any nausea, vomiting. Still feeling little bit weak. Exam Vital Signs Temp Pulse Resp BP Pulse Ox O2 Del Method 97.2 F 92 18 121/79 100 Room Air 10/23/24 16:00 10/23/24 16:00 10/23/24 16:00 10/23/24 16:00 10/23/24 16:10/23/24 16:00 Narrative Exam General: Awake. HEENT: Normocephalic, atraumatic, mucous membranes moist. Heart: Regular rate and rhythm, no murmurs. Lungs: Clear to auscultation with no wheezing or crackles. Abdomen: Soft, nondistended, mild tenderness, positive bowel sounds. ?No guarding or rebound tenderness.++Ileostomy Neurologic: Alert and oriented x3, no gross neurological deficit, and patient able to move all 4 extremities. Extremities: No edema. Skin: No rash or ecchymoses. Objective Labs 10/23/24 05:25 10/23/24 05:25 Labs: Laboratory Results - last 24 hr 10/23/24 05:25 WBC 7.2 RBC 4.59 Hgb 8.8 L Hct 32.5 L MCV 71 L MCH 19.2 L MCHC 27.1 L RDW Std Deviation 47.8 H Plt Count 317 D Neut % (Auto) 60 Lymph % (Auto) 24 [place] % (Auto) 12 Eos % (Auto) 3 Baso % (Auto) 1 Neut # (Auto) 4.3 Lymph # (Auto) 1.7 [place] # (Auto) 0.9 H Eos # (Auto) 0.2 Baso # (Auto) 0.1 Immature Gran # (Auto) 0.01 H Absolute Nucleated RBC 0.00 Immature Gran % 0 Nucleated RBC % 0 Sodium 140 Potassium 3.5 D Chloride 112 H Carbon Dioxide 20.7 Anion Gap 7 BUN 9 Creatinine 1.2 Estim Creat Clear Calc 41.6 L eGFR 56 L BUN/Creatinine Ratio 8 L Glucose 80 Calculated Osmolality 277 Calcium 8.3 Corrected Calcium 8.5 Total Bilirubin 0.5 AST 40 H ALT 10 Alkaline Phosphatase 186 H Total Protein 5.5 L Albumin 3.7 Globulin 1.8 L Albumin/Globulin Ratio 2.1 Amylase 234 H Lipase 190 H D Quality Measures Quality Measures none Assessment & Plan Assessment Current Active Medications: Generic Name Dose Route Start Last Admin Trade Name Freq PRN Reason Stop Dose Admin Acetaminophen 500 mg 10/20/24 13:25 Acetaminophen 500 Mg Tablet PO 11/18/24 21:14 Q6H PRN mild pain and or fever >100.2 Buspirone HCl 15 mg 10/20/24 20:15 10/23/24 09:00 Buspirone Hcl 5 Mg Tablet PO 11/19/24 20:14 Not Given QDAY [facility] Duloxetine HCl 20 mg 10/20/24 09:00 10/23/24 09:00 Duloxetine Hcl 20 Mg Capsule PO 11/19/24 08:59 Not Given BID [facility] Levothyroxine Sodium 25 mcg 10/20/24 06:00 10/23/24 06:37 Levothyroxine Sodium 25 Mcg Tablet PO 11/19/24 05:59 Not Given ACBR [facility]ON[facility] Lorazepam 0.5 mg 10/19/24 21:32 10/22/24 21:22 Lorazepam 0.5 Mg Tablet PO 10/24/24 21:31 0.5 mg BID PRN Administration Anxiety Morphine Sulfate 1 mg 10/20/24 00:50 10/20/24 09:34 Morphine Sulf Inj 10 Mg/Ml Vial IVP 10/25/24 00:49 1 mg Q4HR PRN Administration PAIN SCALE 7-10 (Severe Ondansetron HCl 4 mg 10/19/24 21:05 10/20/24 01:07 Ondansetron Inj 2 Mg/Ml Inj 2 Ml IV 11/18/24 21:04 4 mg Q4H PRN Administration NAUSEA Protocol Phenazopyridine HCl 100 mg 10/21/24 11:00 10/23/24 09:00 Phenazopyridine Hcl 100 Mg Tablet PO 10/23/24 21:01 Not Given BID [facility] Potassium Chloride 20 meq 10/19/24 23:15 10/23/24 09:00 Potassium Chloride 10% 20 Meq/15 Ml Udc PO 11/18/24 23:14 Not Given BID [facility] Pyridostigmine [place] 90 mg 10/20/24 09:00 10/23/24 09:00 Pyridostigmine [place] 60 Mg Tablet PO 11/19/24 08:59 Not Given BID [facility] Plan 48-year-old female with significant past medical history of constipation s/p ileostomy, gastroparesis, renal calculi, recurrent metabolic acidosis [secondary to tubular acidosis and GI losses], CKD stage III, multiple sclerosis, anxiety, depression, seizures, hypothyroidism presented to the hospital with complaints of severe abdominal pain, body pains and vomiting since 1 day and admitted for acute pancreatitis. MIKE resolved with current management. Clear for discharge from nephrology perspective. Continue encouraging oral hydration and monitoring kidney function. Acute pancreatitis Presented with severe abdominal pain and vomiting following alcohol consumption of 2 drinks. Admission vital stable. She had elevated lipase of 2052 and classic epigastric pain suggestive of pancreatitis. CT showed bilateral staghorn calculi. She had WBC 26.6, sodium 130, bicarb 11.1, BUN 34, CR 2.6, osmolarity 269, AST 51, lipase 250 Previously started on IV fluids. Symptoms have improved. Tolerating soft diet. Currently pending HIDA scan. ? Continue pain control with MORPHINE 1 mg IV push q.4h. PRN ? Advance diet as tolerated Acute on chronic kidney disease, likely prerenal (resolved) Admission creatinine 2.6 with baseline 1.5?1.9. Currently, CR 1.2. Likely in settings of dehydration 2/2 vomiting. ? Encourage oral hydration ? Renally dose meds, avoid overdiuresis and NEPHROTOXINS ? Daily CMP Metabolic acidosis Chronic, secondary to ileostomy. She was on home sodium bicarb tablets. Admission, bicarb 11.8, continue home dose of bicarb, currently bicarb 20.7. ? Continue home bicarbonate tablets Hypothyroidism TSH is within normal limits ? Continue home LEVOTHYROXINE dose Gastroparesis Constipation s/p ileostomy Renal calculi-staghorn calculi probably related to recurrent urinary tract infections Anxiety/depression Multiple sclerosis Follows Dr. Alcantar for MS, receives OCREVUS injections regularly. ? Continue home medications Hospital Maintenance: Dispo: MedSurg DVT ppx: Not needed GI ppx: Not needed Diet: soft diet IV lines: Peripheral Code status: Full code Patient case was discussed with attending, Dr. Harris. Hi Shook DO PGYI Attending Provider Attestation/Addendum Patient seen and examined with resident physician Note reviewed, agree with findings and recommendations. Patient presented with abdominal pain and diagnosed with acute pancreatitis. Amylase and lipase improving. Per Dr. Shirley recommendations-pending HIDA scan. Possible discharge tomorrow if clinically stable. Vaginitis symptoms seems to be slightly better.
[2024-10-23 20:00] VITALS: BP 112/71; PULSE 85; RESP 16; TEMP 37.1; O2SAT 97
--- NOTE | 2024-10-23 20:15 | ESPR_ITS ---
Documentation for date of: 10/23/24 Subjective Subjective Interval history: CCK HIDA scan with ejection fraction of the gallbladder at 40% Exam Vital Signs Temp Pulse Resp BP Pulse Ox O2 Del Method 97.2 F 92 18 121/79 100 Room Air 10/23/24 16:00 10/23/24 16:00 10/23/24 16:00 10/23/24 16:00 10/23/24 16:00 10/23/24 16:00 Objective Labs 10/23/24 05:25 10/23/24 05:25 Labs: Laboratory Results - last 24 hr 10/23/24 05:25 WBC 7.2 RBC 4.59 Hgb 8.8 L Hct 32.5 L MCV 71 L MCH 19.2 L MCHC 27.1 L RDW Std Deviation 47.8 H Plt Count 317 D Neut % (Auto) 60 Lymph % (Auto) 24 [place] % (Auto) 12 Eos % (Auto) 3 Baso % (Auto) 1 Neut # (Auto) 4.3 Lymph # (Auto) 1.7 [place] # (Auto) 0.9 H Eos # (Auto) 0.2 Baso # (Auto) 0.1 Immature Gran # (Auto) 0.01 H Absolute Nucleated RBC 0.00 Immature Gran % 0 Nucleated RBC % 0 Sodium 140 Potassium 3.5 D Chloride 112 H Carbon Dioxide 20.7 Anion Gap 7 BUN 9 Creatinine 1.2 Estim Creat Clear Calc 41.6 L eGFR 56 L BUN/Creatinine Ratio 8 L Glucose 80 Calculated Osmolality 277 Calcium 8.3 Corrected Calcium 8.5 Total Bilirubin 0.5 AST 40 H ALT 10 Alkaline Phosphatase 186 H Total Protein 5.5 L Albumin 3.7 Globulin 1.8 L Albumin/Globulin Ratio 2.1 Amylase 234 H Lipase 190 H D Impressions Impression: Alcohol induced pancreatitis No evidence of biliary dyskinesia Advance diet as Assessment & Plan A&P Narrative # Acute pancreatiti most likely alcohol induced although biliary dyskinesia cannot be ruled out Conservative management with IV fluids and pain control Will follow # Pain abdomen secondary to 1 # Renal insufficiency due to dehydration # Longstanding gastroparesis # Status post ileostomy Time Spent With Patient Time: Total time spent is greater than 50% in coordination of care (as documented) at patient's floor/unit and/or counseling patient:
[2024-10-23] MEDS: LORazepam 0.5 MG TABLET PO (20:35)
[2024-10-23] MEDS: pyRIDostigmine bromide 60 MG TABLET 90 MG PO (20:35)
[2024-10-23] MEDS: PHENAZOPYRIDINE HCL 100 MG TABLET PO (20:35)
[2024-10-23] MEDS: DULoxetine HCL 20 MG CAPSULE PO (20:35)
[2024-10-23] MEDS: POTASSIUM CHLORIDE 10% 20 MEQ/15 ML UDC PO (20:35)
[2024-10-24] VITALS: BP 105/60; PULSE 79; RESP 16; TEMP 36.3; O2SAT 92
[2024-10-24 04:00] VITALS: BP 111/64; PULSE 61; RESP 16; TEMP 36.4; O2SAT 98
[2024-10-24] MEDS: LEVOTHYROXINE SODIUM 25 MCG TABLET PO (06:40)
[2024-10-24 07:00] VITALS: BP 91/62; PULSE 64; RESP 20; TEMP 36.3; O2SAT 92
[2024-10-24 07:58] VITALS: BP 84/47; PULSE 64; RESP 20; TEMP 36.3; O2SAT 92
[2024-10-24 09:38] LABS: Basophils # (Auto) 0.1 Thou/mm3 (0.0-0.2); Basophils % (Auto) 1 % (0-2.5); Eosinophils # (Auto) 0.2 Thou/mm3 (0.0-0.5); Eosinophils % (Auto) 2 % (0-10); Hematocrit 35.9 % (36.0-46.0); Hemoglobin 9.7 g/dL (12.0-16.0); Immature Granulocytes % (Auto) 0 % (0-0); Immature Granulocytes Auto 0.02 Thou/mm3 (0.00-0.00); Lymphocytes # (Auto) 1.2 Thou/mm3 (1.0-4.8); Lymphocytes % (Auto) 15 % (10-50); Mean Corpuscular Hemoglobin 19.1 pg (25.0-35.0); Mean Corpuscular Volume 71 fL (80-100); Monocytes # (Auto) 0.5 Thou/mm3 (0.0-0.8); Monocytes % (Auto) 7 % (0-12); Neutrophils # (Auto) 5.9 Thou/mm3 (1.8-7.7); Neutrophils % (Auto) 75 % (37-80); Nucleated Red Blood Cell % 0 /100 WBC (0); Platelet Count 317 Thou/mm3 (140-440); RDW Standard Deviation 48.6 fL (36.4-46.3); Red Blood Count 5.07 Miln/mm3 (4.00-5.20); White Blood Count 7.9 Thou/mm3 (3.6-11.0)
--- NOTE | 2024-10-24 09:42 | ESDS_ITS ---
Planned Discharge Date 10/24/24 DS: Providers Provider Date of admission: 10/19/24 21:05 Primary care physician: Irma Harris MD Admitting Provider: Irma Harris MD Attending Provider on Admission: Irma Harris MD Consults: 10/19/24 21:02 Consult to Gastroenterology Stat Comment: Acute pancreatitis, gastroparesis Consulting Provider: Tesfaye Shirley 10/20/24 00:46 Referral Registered Dietitian Routine Comment: Referral Respiratory Therapy Routine Comment: Attending Provider on DC: Joshua Jung MD Discharging Provider: Joshua Jung MD DS: Diagnosis Problem List Completed Was Problem List Reviewed/Reconciled?: Yes Hospital Course Hospital Course Hospital course: Patient is a 48-year-old female past medical history of constipation status post ileostomy, gastroparesis, renal calculi, recurrent metabolic acidosis, CKD stage III, multiple sclerosis, anxiety, depression, seizures, hypothyroidism who was initially admitted on 10/20/2024 due to acute pancreatitis. Patient was experiencing severe epigastric abdominal pain, nausea vomiting and inability to keep anything down after she had celebrated her son's 21st birthday and drank 2 Smirnoff drinks. She states that she has never drank alcohol before and has not had any similar experiences in the past. Patient's lipase level was found to be 2052 without elevated T. bili. Imaging studies revealed a normal gallbladder without wall thickening or dilatation of the CBD. HIDA scan revealed ejection fraction of 40% which is normal. Patient's acute pancreatitis was likely secondary to hypersensitivity to, alcohol. Patient greatly improved during her stay and was tolerating diet prior to discharge. She was advised to follow-up outpatient in 1 to 2 weeks and she was counseled on complete avoidance of alcohol. Problems addressed during this stay #Acute pancreatitis #Acute on chronic kidney disease likely prerenal #Metabolic acidosis #Hypothyroidism Plan: Continue medications as previously prescribed Follow-up in our office in 1 to 2 weeks Complete avoidance of alcohol is recommended Return to the ED if experiencing new or worsening symptoms I discussed patient's care with attending physician, Dr Steven Jung PGY3 Status at Discharge Cognitive/behavioral status at discharge: Stable Functional status at discharge: independent ambulation Overall status at discharge: patient is back to baseline Time Spent with Patient Time attestation: Total time spent providing and/or coordinating discharge services: 35 min Exam Vital Signs Temp Pulse Resp BP Pulse Ox O2 Del Method 97.3 F 64 20 84/47 L 92 L Room Air 10/24/24 07:58 10/24/24 07:58 10/24/24 07:58 10/24/24 07:58 10/24/24 07:58 10/24/24 07:58 Narrative Exam Constitutional: Well nourished and in no acute distress CVS: RRR, S1 and S2 present, no murmurs, rubs or gallops . RESP: CTAB, no SOB, no rales, rhonchi or wheezing. No respiratory Distress GI: Normal BS, Nontender/Nondistended.++ Ileostomy MSK: Full range of motion, No trauma or deformities or masses. Skin: Warm to touch, Dry. No rashes or lesions. 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 Sensation grossly intact. Psych: (AAO) x3 . Appropriate mood and affect. Discharge Plan Plan Patient Disposition: HOME (Self Care) Disposition Comment: Stable Care Plan Goals: Patient can return home Patient can continue her medications as previously prescribed Follow-up with PCP in 1 to 2 weeks Patient advised to avoid any alcohol whatsoever Patient can return to the ED if experiencing new or worsening symptoms Prescriptions/Referrals Prescriptions/Med Rec: Continued pyridostigmine bromide 60 MG tablet 90 mg PO BID Qty: 60 ondansetron 4 mg Tablet,Disintegrating 4 mg PO BID PRN (Reason: n/v) Qty: 0 lorazepam 0.5 MG tablet 0.5 mg PO BID PRN (Reason: Anxiety) Qty: 0 duloxetine [Cymbalta] 20 MG capsule,delayed release(DR/EC) 20 mg PO BID Qty: 0 Linzess 290 mcg Capsule 290 mcg PO QDAY levothyroxine 25 mcg Tablet 25 mcg PO QDAY buspirone 15 mg tablet 15 mg PO QDAY Patient Comments: TAKE 1 TABLET BY MOUTH EVERY DAY sodium bicarbonate 650 mg Tablet 1,950 mg PO BID cyanocobalamin (vitamin B-12) 1,000 mcg/mL solution 1,000 mcg SUBCUT QWEEK Patient Comments: INJECT 1 ML INTRAMUSCULARLY ONCE A WEEK Rx Instructions: Fridays. ergocalciferol (vitamin D2) 1,250 mcg (50,000 unit) capsule 50,000 unit PO QWEEK Patient Comments: TAKE 1 CAPSULE BY MOUTH ONE TIME PER WEEK Rx Instructions: Fridays. cyclobenzaprine 5 mg tablet 5 mg PO HS PRN (Reason: Spasms) Patient Comments: TAKE 1 TABLET BY MOUTH EVERY DAY AT BEDTIME NEEDED estradiol [Yuvafem] 10 mcg tablet 10 mcg 2 X WEEKLY Patient Comments: INSERT 1 TABLET INTO VAGINA TWICE A WEEK potassium chloride 20 mEq/15 mL Liquid 20 meq PO TID PRN (Reason: cramping) Referrals: Irma Harris MD [Primary Care Provider] - Patient/Caregiver Discharge Instructions Discharge Activity: activity as tolerated Print Language: Vietnamese Activity Restrictions/Additional Instructions: Follow-up with Dr. Harris in 1 to 2 weeks Stand Alone Forms: Leslee Award Info., Patient Portal Info Letter Discharge Order Discharge Orders: Discharge (Routine); Ordered 10/24/24 Ordered By: Joshua Jung Quality Discharge Quality Measures VTE prophylaxis MD Attestestation MD Attestation Patient seen and examined with resident physician Dr. Jung. Note reviewed, agree with findings and recommendations with few changes made Patient admitted with acute pancreatitis-resolved. HIDA scan negative.
[2024-10-24 09:59] LABS: Alanine Aminotransferase 11 U/L (10-49); Albumin/Globulin Ratio 2.1 (1.2-2.2); Alkaline Phosphatase 193 U/L (46-116); Anion Gap 6 (7-16); Aspartate Amino Transferase 32 U/L (0-34); BUN/Creatinine Ratio 10 Ratio (12-20); Bilirubin,Total 0.4 mg/dL (0.3-1.2); Blood Urea Nitrogen 13 mg/dL (9-23); Calcium 9.1 mg/dL (8.3-10.6); Calcium (Corrected) 9.1 mg/dL (8.5-10.1); Carbon Dioxide 23.8 mMol/L (20.0-31.0); Chloride 110 mMol/L (98-107); Creatinine (Component) 1.3 mg/dL (0.6-1.3); Estimated Creatinine Clearance 38.4 mL/min (>60); Globulin 1.9 gm/dL (2.3-3.5); Glucose 142 mg/dL (74-106); Osmolality,Calculated 281 (275-295); Potassium 3.9 mMol/L (3.4-5.1); Sodium 140 mMol/L (136-145); Total Protein 5.9 gm/dL (5.7-8.2); eGFR 51 See Note
[2024-10-24] MEDS: BusPIRone HCL 5 MG TABLET 15 MG PO (10:00)
[2024-10-24] MEDS: DULoxetine HCL 20 MG CAPSULE PO (10:00)
[2024-10-24] MEDS: POTASSIUM CHLORIDE 10% 20 MEQ/15 ML UDC PO (10:00)
[2024-10-24 11:00] VITALS: BP 124/76; PULSE 73; RESP 20; TEMP 36.3; O2SAT 96
--- NOTE | 2024-10-26 11:24 | PC.CM ---
Chuckie VERDUZCO let me know he received a call from [facility] stating patient was opened to them. I called and spoke to [facility] and I let them know that we did not know patient was opened to them and patient was already discharged home. They asked me to fax over H&P and discharge summary. I faxed over paperwork today.
== END 2024-10-24 11:12 | disposition home or self-care (01) | DRG 439 ==
LOC: SERX 17:14 → SERHOLD 21:20 → S3SX 10-20 00:15
PROVIDERS: Nurse Practitioner Family; Student in an Organized Health Care Education/Training Program; Admitting Provider Internal Medicine; Emergency Provider Emergency Medicine; PCP Internal Medicine; Visit Provider Internal Medicine
DX: K85.20 Alcohol induced acute pancreatitis without necrosis or infection (principal); E87.20 Acidosis, unspecified; N17.9 Acute kidney failure, unspecified; N39.0 Urinary tract infection, site not specified; N18.30 Chronic kidney disease, stage 3 unspecified; N20.0 Calculus of kidney; E86.0 Dehydration; E03.9 Hypothyroidism, unspecified; K31.84 Gastroparesis; K59.00 Constipation, unspecified; F32.A Depression, unspecified; F41.9 Anxiety disorder, unspecified; G35 Multiple sclerosis; Z93.2 Ileostomy status; Z87.440 Personal history of urinary (tract) infections; Z79.890 Hormone replacement therapy; Z87.442 Personal history of urinary calculi; Z79.899 Other long term (current) drug therapy
CPT/HCPCS: 36415; 74176; 76705; 78227; 80053; 80061; 81001; 82150; 83690; 85025; 85610; 87086; 93005; 96361; 96374; 96375; 99285; A9537; J2270; J2405; J2543; J2765; J2805; J3490; J7030; J7120; A9270

== ENCOUNTER → 2024-11-06 | Outpatient (CLI) | payer BC, SELFPAY ==
[2024-11-07 09:42] LABS: BVAG Candida Positive (Negative); Bacterial Vaginosis Markers Positive (Negative); Candida glabrata Negative (Negative); Candida krusei PCR Negative (Negative); Trichomonas Negative (Negative)
== END | disposition home or self-care (01) ==
LOC: SLDO 15:26
PROVIDERS: Referring Provider Specialist; Visit Provider Specialist
DX: A59.01 Trichomonal vulvovaginitis (principal); B37.89 Other sites of candidiasis; N76.0 Acute vaginitis
CPT/HCPCS: 81514

== ENCOUNTER → 2024-11-21 | Outpatient (CLI) | payer BC, SELFPAY ==
[2024-11-22 08:37] LABS: BVAG Candida Negative (Negative); Bacterial Vaginosis Markers Positive (Negative); Candida glabrata Negative (Negative); Candida krusei PCR Negative (Negative); Trichomonas Negative (Negative)
== END | disposition home or self-care (01) ==
LOC: SLDO 15:09
PROVIDERS: Referring Provider Specialist; Visit Provider Specialist
DX: B37.89 Other sites of candidiasis (principal); N76.0 Acute vaginitis; Z59.01 Sheltered homelessness
CPT/HCPCS: 81514

== ENCOUNTER → 2025-01-03 | Outpatient (CLI) | payer BC, SELFPAY ==
[2025-01-04 10:19] LABS: BVAG Candida Negative (Negative); Bacterial Vaginosis Markers Positive (Negative); Candida glabrata Negative (Negative); Candida krusei PCR Negative (Negative); Trichomonas Negative (Negative)
== END | disposition home or self-care (01) ==
LOC: SLDO 14:32
PROVIDERS: Referring Provider Specialist; Visit Provider Specialist
DX: N76.0 Acute vaginitis (principal); A59.01 Trichomonal vulvovaginitis; B37.89 Other sites of candidiasis
CPT/HCPCS: 81514

== ENCOUNTER 2025-04-02 19:02 | Inpatient (IN) | payer BC, SELFPAY ==
[2025-04-02 19:04] VITALS: BP 102/70; PULSE 86; RESP 18; TEMP 36.1; O2SAT 99; BMI 18.3
[2025-04-02 19:07] VITALS: PULSE 78; RESP 18; O2SAT 97
--- NOTE | 2025-04-02 19:17 | EDNOTE_ITS ---
ED General RME/HPI General Chief complaint: Nausea/Vomiting/Diarrhea Stated complaint: HYPOTENSION Time Seen by Provider: 04/02/25 19:13 Arrival date/time: 04/02/25 19:02 CC: Nausea vomiting body cramping HPI ongoing this morning. EMS report hypotensive on initial assessment at 70/50. Patient has IV fluids running. Patient has a history of gastroparesis and this CKD ileostomy. Was seen here in October 2024 for the same complaint. Related Data Home Medications ?Medication ?Instructions ?Recorded ?Confirmed pyridostigmine bromide 60 mg tablet 90 mg PO BID ##60 06/24/15 04/02/25 ondansetron 4 mg disintegrating 4 mg PO BID PRN n/v #0 tabs 03/04/16 04/02/25 tablet duloxetine 20 mg capsule,delayed 20 mg PO BID #0 caps 04/02/17 04/02/25 release (Cymbalta) lorazepam 0.5 mg tablet 0.5 mg PO BID PRN Anxiety #0 tabs 04/02/17 04/02/25 linaclotide 290 mcg capsule 290 mcg PO QDAY 01/18/19 0 04/02/25 (Linzess) levothyroxine 25 mcg tablet 25 mcg PO QDAY 08/13/21 cyanocobalamin (vitamin B-12) 1,000 mcg subcut QWEEK 0 08/26/22 04/02/25 1,000 mcg/mL injection solution cyclobenzaprine 5 mg tablet 5 mg PO HS PRN Spasms 02/09/1604/02/25 ergocalciferol (vitamin D2) 1,250 50,000 unit PO QWEEK 08/26/22 04/02/25 mcg (50,000 unit) capsule potassium chloride 20 mEq/15 mL 20 meq PO TID PRN cram ping 08/26/22 04/02/25 oral liquid sodium bicarbonate 650 mg tablet 1,950 mg PO BID 08/2604/02/25 buspirone 15 mg tablet 15 mg PO QDAY 10/20/2404/02 atorvastatin 20 mg tablet 20 mg PO HS 04/02/25 5 calcitriol 0.25 mcg capsule 0.25 mcg PO . 3 times a we ek 04/02/25 04/02/25 Allergies Allergy/AdvReac Type Severity Reaction Status Date / Time ciprofloxacin Allergy Severe SEVERE Verified 04/02/25 19:15 NAUSEA AND VOMITING cefuroxime (From Ceftin) Allergy Verified 04/02/25 19:15 Review of Systems Review of Systems Narrative Review of Systems: GEN: No fever, no chills, no weight loss EYES: No discharge, no visual changes, no pain HEENT: No ear pain, no congestion, no sore throat PULM: No shortness of breath, no cough, no congestion CV: No chest pain, no dyspnea on exertion, no palpitations GI: + nausea, +vomiting, no diarrhea, no pain, no constipation : No frequency, no urgency, no dysuria MUSC/SKEL: No joint pain, no back pain SKIN: No rash PSYCH: No hallucinations, no depression HEME/LYMPH: No easy bleeding or bruising tendencies NEURO: No weakness, no headache, +body aches Past Medical History Past Medical History NEUROLOGIC: Positive Multiple Sclerosis; Negative Neurological Disorders or Seizures CARDIAC: Positive Cardiac Disorders, Edema and Hypotension; Negative Congestive Heart Failure RESPIRATORY: Negative Chronic Obstructive Pulmonary Disease (COPD) or Asthma GASTROINTESTINAL: Positive Gastrointestinal Disorders, Pancreatitis and Obstructive Bowel; Negative Hepatitis or Colorectal Cancer GENITOURINARY: Negative Genitourinary Disorders, Renal Disease or Prostate Cancer REPRODUCTIVE: Positive Previous Pregnancies; Negative Breast Cancer or Testicular Cancer MUSCULOSKELETAL: Positive Musculoskeletal Disorders and Fibromyalgia; Negative Bone Cancer or Carpal Tunnel Syndrome ENT: Negative Cataracts ENDOCRINE: Positive Hypothyroidism; Negative Endocrine Disorders, Diabetes Mellitus Type 1 or Diabetes Mellitus Type 2 HEMATOLOGIC: Positive Blood Disorders and Anemia; Negative Sickle Cell Disease PSYCHO/SOCIAL: Positive Depression OTHER HISTORY: Positive Falls and Chicken Pox; Negative Autoimmune Disease, Blood Transfusions, Blood Transfusion Reaction, Anesthesia Reactions, Human Immunodeficiency Virus (HIV), Measles, Mumps, Rubella (Greek Measles), Pertussis, Clostridium Difficile, Breast Cancer, Cervical Cancer, Colorectal Cancer, Lung Cancer, Ovarian Cancer, Prostate Cancer or Testicular Cancer Family History FAMILY HISTORY: Positive Family Cardiac Disorders, Family Gastrointestinal Problems and Family Cancer; Negative Family Psychiatric Problems, Family Respiratory Disorders, Family Surgery or Family Anesthesia Reaction Surgical History SURGICAL: Positive Abdominal Surgery and Tubal Ligation; Negative Cardiac Surgery, Endocrine Surgery, Ear Surgery, Tympanostomy Tube, Eye Surgery, Nose Surgery, Oral Surgery, Tonsillectomy, Adenoidectomy, Cochlear Implant, Corneal Transplant, Throat Surgery, Tracheostomy, Nephrectomy, Transurethral Resection, Joint Replacement, Amputation, Open Reduction Internal Fixation, Arthroscopy, Mastectomy, Lumpectomy or Section Social History SMOKING STATUS: Never smoker ED Exam Narrative Physical exam: [General: Thin borderline emaciated in moderate discomfort but not in any acute distress, shivering Head normocephalic HEENT: Eyes pupils are PERRLA EOMs are intact mouth pink dry membranes uvula is midline swallow symmetrical phonation is normal all other subsystems of HEENT are within acceptable limits Neck is supple nontender Chest equal chest rise nontender to palpation Respiratory: Clear to auscultation no wheezes crackles or rubs CV: Rate rhythm is regular no murmurs rubs or clicks Abdomen is soft nontender no masses positive bowel sounds ileostomy bag firmly attached, thin liquidy stool content in the bag. Back: No CVA tenderness no spinous process tenderness from cervical spine thoracic and lumbar spine Skin: Intact no petechiae rash induration ulceration or crepitus Extremities: Cramping in the hands. But moving all extremities against resistance cap refill less than 2 seconds neurosensory intact Neuro: Awake alert oriented x3 Glascow coma 15 no focal deficits] Course Course Course Narrative: Patient is acidotic, with dumping syndrome discussed patient's case laboratory findings and clinical presentation discussed with Dr. Harris agrees to accept the patient and admit patient she is requesting the patient be placed on a bicarb drip at 125 mL an hour. Patient is in agreement with this plan. Quality Measures none Orders Category Date Time Status Admit to Inpatient Status Routine Admission 04/02/25 21:27 Active COVID-19 Screening Questionnaire NOW Care 04/02/25 21:26 Completed Decision to Admit X1 Care 04/02/25 21:26 Completed EKG (ED ONLY) *Do not use* NOW Care 04/02/25 19:14 Completed NPO NOW Care 04/02/25 21:29 Completed EKG (ED Only) Stat Exams 04/02/25 19:14 Ordered Amylase Stat Lab 04/02/25 21:49 Completed B-Type Natriuretic Peptide Stat Lab 04/02/25 19:36 Completed Beta Hydroxybutyrate Stat Lab 04/02/25 19:36 Completed CBC Stat Lab 04/02/25 19:36 Completed CMP [Comprehensive Metabolic Panel] Stat Lab 04/02/25 21:49 Completed Comprehensive Metabolic Panel Stat Lab 04/02/25 19:36 Completed Drug Screen,Urine Stat Lab 04/02/25 20:02 Completed Lactate (Lactic Acid) Stat Lab 04/02/25 21:49 Completed Lactic Acid [Lactate (Lactic Acid)] Stat Lab 04/02/25 19:36 Completed Lipase Stat Lab 04/02/25 19:36 Completed Lipase Stat Lab 04/02/25 21:49 Completed Magnesium Stat Lab 04/02/25 19:36 Completed Partial Thromboplastin Time Stat Lab 04/02/25 19:36 Completed Path Review Blood Smear Stat Lab 04/02/25 19:36 Completed Procalcitonin Stat Lab 04/02/25 19:36 Completed Prothrombin Time with INR Stat Lab 04/02/25 19:36 Completed Urinalysis, C/S if Indicated Stat Lab 04/02/25 20:02 Completed VBG [Venous Blood Gas] Stat Lab 04/02/25 19:36 Completed Dextrose 5%-Water [D5w] 500 ml Med 04/03/25 09:30 Discontinued Sodium Bicarb 8.4% 50ml Vial* 88.23 meq IV 100 mls/hr Metoclopramide Inj [Reglan Inj] Med 04/02/25 19:16 Discontinued 10 mg IVP X1 ONE Morphine* Inj Med 04/02/25 19:16 Discontinued 4 mg IVP X1 ONE Ondansetron Inj [Zofran Inj] Med 04/02/25 21:26 Discontinued 4 mg IVP X1 PRN Ringers Lactated 1000 ml [Lactated Ringers] 1,000 ml Med 04/02/25 19:14 Discontinued IV 999 mls/hr Ringers Lactated 1000 ml [Lactated Ringers] 1,000 ml Med 04/02/25 19:16 Discontinued IV 999 mls/hr Sodium Chloride 0.9% 1000 ml [Ns] 1,000 ml Med 04/02/25 19:17 Discontinued IV 125 mls/hr Code Status Routine Oth 04/02/25 21:26 Completed Vital Signs Vital signs: Vital Signs Temperature 97.0 F 04/02/25 19:04 Pulse Rate 86 04/02/25 19:04 Respiratory Rate 18 04/02/25 19:04 Blood Pressure 102/70 04/02/25 19:04 Pulse Oximetry (%) 99 04/02/25 19:04 Oxygen Delivery Method Room Air 04/02/25 19:04 Discharge Plan Plan Patient Disposition: Admit Acute Care w/in Hospital Patient condition on transfer: Stable Problem List Clinical Impression: Gastroparesis, Metabolic acidosis, Hyponatremia, Acute pancreatitis Patient/Caregiver Discharge Instructions Discharge Activity: activity as tolerated PA/DANIEL Supervising Physician VANESSA/DANIEL Supervising Physician: Minor Green ENP [facility] Clinical Information Provided by patient and EMS Medical Records Reviewed [facility] and EMS Meds/Rx Considered, not Ordered None Labs/Rad/Tests considered, not Ordered None Chronic Illness/Social Conditions Add or document further as needed: Gastroparesis CKD stage III ileostomy MS EKG EKG Interpretation narrative: EKG performed at 1953 shows a ventricular rate of 68 WI interval 109 QRS of 83 QTc of 392 this is a junctional rhythm. Lab Interpretation Lab(s) interpretation(s): CBC shows a leukocytosis of 17.3 H&H of 912.9 and 49.0. Platelets at 483. No bandemia. Coags within excepted limits VBG shows a 7.23 pCO2 of 29 pO2 of 44% with a 29 mm. Base deficit is of 14 CMP shows a sodium 133 potassium of 4.0 chloride 103 CO2 of 12.4 anion gap of 18 BUN of 28 creatinine of 2.8 glucose of 134 lactic acid 3.7 mag 3.2 AST 41 alk phos of 421 ALT 16 total bili at 0.5. Lipase at 944. Urine is turbid 3+ protein 3+ blood. RBCs at 627 WBCs at 838 squamous epithelial 50 31+ bacteria leukocyte esterase positive nitrite negative. Medication Administration(s) Medication Administration History Discontinued Medications Acetaminophen (Acetaminophen 325 Mg Tablet) 650 mg PO Q6HR PRN PRN Reason: PAIN SCALE 1-3 (mild Stop: 05/03/25 18:35 Last Admin: 04/04/25 02:29 Dose: 650 mg Documented By: Admin: 04/03/25 18:45 Dose: 650 mg Documented By: SARAH Atorvastatin Calcium (Atorvastatin Calcium 20 Mg Tablet) 20 mg PO HS [facility] Stop: 05/04/25 20:59 Buspirone HCl (Buspirone Hcl 5 Mg Tablet) 15 mg PO QDAY BONNY Stop: 05/04/25 08:59 Last Admin: 04/04/25 08:32 Dose: 15 mg Documented By: TIFFANY Calcitriol (Calcitriol 0.25 Mcg Capsule) 0.25 mcg PO TUTHSA BONNY Stop: 05/04/25 08:59 Last Admin: 04/04/25 08:33 Dose: 0.25 mcg Documented By: TIFFANY Calcitriol (Calcitriol 0.25 Mcg Capsule) 0.25 mcg PO X1 ONE Stop: 04/03/25 22:31 Last Admin: 04/03/25 22:29 Dose: 0.25 mcg Documented By: NAYELI Cyanocobalamin (Cyanocobalamin Inj 1,000 Mcg/Ml Vial) 1,000 mcg SC QWEEK [facility] Stop: 05/10/25 08:59 Cyclobenzaprine HCl (Cyclobenzaprine 5 Mg Tablet) 5 mg PO HS PRN PRN Reason: Spasms Stop: 05/03/25 21:54 Last Admin: 04/03/25 22:31 Dose: 5 mg Documented By: NAYELI Duloxetine HCl (Duloxetine Hcl 20 Mg Capsule) 20 mg PO BID BONNY Stop: 05/04/25 08:59 Last Admin: 04/04/25 08:32 Dose: 20 mg Documented By: TIFFANY Lactated Ringer's (Lactated Ringers) 1,000 mls @ 999 mls/hr IV .Q1H1M ONE Stop: 04/02/25 20:14 Last Infusion: 04/02/25 20:57 Dose: Infused Documented By: Admin: 04/02/25 19:36 Dose: 999 mls/hr Documented By: SOLE Lactated Ringer's (Lactated Ringers) 1,000 mls @ 999 mls/hr IV .Q1H1M ONE Stop: 04/02/25 20:16 Last Infusion: 04/02/25 20:57 Dose: Infused Documented By: Admin: 04/02/25 19:36 Dose: 999 mls/hr Documented By: SOLE Sodium Chloride (Ns) 1,000 mls @ 125 mls/hr IV .Q8H [facility] Stop: 05/02/25 19:16 Last Admin: 04/04/25 08:27 Dose: Not Given Documented By: TIFFANY Non-Admin Reason: Discontinued Admin: 04/03/25 20:20 Dose: 125 mls/hr Documented By: Infusion: 04/03/25 19:55 Dose: Infused Documented By: Admin: 04/03/25 11:55 Dose: 125 mls/hr Documented By: Infusion: 04/03/25 11:55 Dose: Infused Documented By: Admin: 04/03/25 04:51 Dose: 125 mls/hr Documented By: LEE ANN Infusion: 04/03/25 03:44 Dose: Infused Documented By: LEE ANN Admin: 04/02/25 19:44 Dose: 125 mls/hr Documented By: SOLE Sodium Bicarbonate 88.23 meq/ (Dextrose) 588.23 mls @ 100 mls/hr IV .Q5H53M BONNY Stop: 05/03/25 09:29 Sodium Bicarbonate 88.23 meq/ (Dextrose) 588.23 mls @ 100 mls/hr IV .Q5H53M BONNY Stop: 04/03/25 09:30 Last Admin: 04/03/25 04:52 Dose: 100 mls/hr Documented By: LEE ANN Infusion: 04/03/25 03:46 Dose: Infused Documented By: LEE ANN Admin: 04/02/25 21:53 Dose: 100 mls/hr Documented By: SOLE Sodium Bicarbonate 88.23 meq/ (Dextrose) 588.23 mls @ 100 mls/hr IV .Q5H53M BONNY Stop: 05/03/25 09:29 Last Admin: 04/04/25 08:28 Dose: Not Given Documented By: TIFFANY Non-Admin Reason: Discontinued Admin: 04/04/25 02:05 Dose: 100 mls/hr Documented By: Infusion: 04/04/25 02:05 Dose: Infused Documented By: Admin: 04/03/25 20:20 Dose: 100 mls/hr Documented By: Infusion: 04/03/25 17:44 Dose: Infused Documented By: Admin: 04/03/25 11:51 Dose: 100 mls/hr Documented By: SARAH Potassium Chloride (Kcl Ivpb) 10 meq in 100 mls @ 100 mls/hr IV Q1H [facility] Stop: 04/04/25 11:15 Last Admin: 04/04/25 08:28 Dose: Not Given Documented By: TIFFANY Non-Admin Reason: Discontinued Potassium Phosphate 22.5 mmol/ (Sodium Chloride) 507.5 mls @ 82.778 mls/hr IV X1 ONE Stop: 04/04/25 13:24 Last Admin: 04/04/25 08:06 Dose: 82.778 mls/hr Documented By: TIFFANY Magnesium Sulfate (Magnesium Sulfate Ivpb) 2 gm in 50 mls @ 25 mls/hr IV X1 ONE Stop: 04/04/25 09:18 Last Admin: 04/04/25 08:37 Dose: 25 mls/hr Documented By: TIFFANY Levothyroxine Sodium (Levothyroxine Sodium 25 Mcg Tablet) 25 mcg PO QDAY [facility] Stop: 05/04/25 08:59 Last Admin: 04/04/25 08:33 Dose: 25 mcg Documented By: TIFFANY Lorazepam (Lorazepam 0.5 Mg Tablet) 0.5 mg PO BID PRN PRN Reason: ANXIETY Stop: 04/08/25 21:54 Last Admin: 04/04/25 08:31 Dose: 0.5 mg Documented By: TIFFANY Metoclopramide HCl (Metoclopramide Inj 5 Mg/Ml Vial 2 Ml) 10 mg IVP X1 ONE; Protocol Stop: 04/02/25 19:17 Last Admin: 04/02/25 19:36 Dose: 10 mg Documented By: SOLE Morphine Sulfate (Morphine Sulf Inj 4 Mg/Ml Vial) 4 mg IVP X1 ONE Stop: 04/02/25 19:17 Last Admin: 04/02/25 19:37 Dose: 4 mg Documented By: SOLE Morphine Sulfate (Morphine Sulf Inj 4 Mg/Ml Vial) 2 mg IVP X1 PRN PRN Reason: PAIN Non-Formulary Medication (Ergocalciferol (Vitamin D2)) 50,000 unit PO QWEEK [facility] Stop: 05/10/25 08:59 Non-Formulary Medication (Linaclotide [Linzess]) 290 mcg PO QDAY [facility] Stop: 05/04/25 08:59 Ondansetron HCl (Ondansetron Inj 2 Mg/Ml Inj 2 Ml) 4 mg IVP X1 PRN; Protocol PRN Reason: NAUSEA OR VOMITING Ondansetron HCl (Ondansetron Odt 4 Mg Tabrap) 4 mg PO BID PRN; Protocol PRN Reason: n/v Stop: 05/03/25 21:54 Last Admin: 04/04/25 08:52 Dose: 4 mg Documented By: TIFFANY Ondansetron HCl (Ondansetron Inj 2 Mg/Ml Inj 2 Ml) 4 mg IVP X1 PRN; Protocol PRN Reason: NAUSEA OR VOMITING Potassium Chloride (Potassium Chloride 10% 20 Meq/15 Ml Udc) 20 meq PO TID PRN PRN Reason: cramping Stop: 05/03/25 21:54 Potassium Chloride (Potassium Chloride 10% 20 Meq/15 Ml Udc) 40 meq PO X1 ONE Stop: 04/04/25 08:13 Last Admin: 04/04/25 08:37 Dose: 40 meq Documented By: TIFFANY Potassium Chloride (Potassium Chloride 10% 20 Meq/15 Ml Udc) 40 meq PO X1 ONE Stop: 04/04/25 12:01 Last Admin: 04/04/25 11:20 Dose: 40 meq Documented By: TIFFANY Pyridostigmine [place] (Pyridostigmine [place] 60 Mg Tablet) 90 mg PO BID [facility] Stop: 05/04/25 08:59 Last Admin: 04/04/25 08:34 Dose: 90 mg Documented By: TIFFANY Sodium Bicarbonate (Sodium Bicarbonate 650 Mg Tablet) 1,950 mg PO BID [facility] Stop: 05/04/25 08:59
[2025-04-02] MEDS: METOCLOPRAMIDE INJ 5 MG/ML VIAL 2 ML 10 MG IVP (19:36)
[2025-04-02] MEDS: RINGERS LACTATED 1000 ML 1,000 ML 999 ML IV ×2 (19:36)
[2025-04-02] MEDS: MORPHINE SULF INJ 4 MG/ML VIAL IVP (19:37)
[2025-04-02] MEDS: SODIUM CHLORIDE 0.9% 1000 ML 1,000 ML 125 ML IV (19:44)
[2025-04-02 19:46] LABS: Base Excess, Venous -14 (-3-3); Lactate (Lactic Acid) 3.7 mMol/L (0.4-2.0); O2 Saturation, Venous 44 % (96-97); PCO2, Venous 29 mmHg (36-56); PO2, Venous 29 mmHg (15-58); pH, Venous 7.23 (7.33-7.66)
[2025-04-02 19:48] LABS: Basophils # (Auto) 0.2 Thou/mm3 (0.0-0.2); Basophils % (Auto) 1 % (0-2.5); Eosinophils # (Auto) 0.0 Thou/mm3 (0.0-0.5); Eosinophils % (Auto) 0 % (0-10); Hematocrit 49.0 % (36.0-46.0); Hemoglobin 12.9 g/dL (12.0-16.0); Immature Granulocytes Auto 0.07 Thou/mm3 (0.00-0.00); Lymphocytes # (Auto) 1.2 Thou/mm3 (1.0-4.8); Lymphocytes % (Auto) 7 % (10-50); Mean Corpuscular HGB Conc 26.3 g/dl (31.0-37.0); Mean Corpuscular Hemoglobin 18.0 pg (25.0-35.0); Mean Corpuscular Volume 68 fL (80-100); Monocytes # (Auto) 0.5 Thou/mm3 (0.0-0.8); Monocytes % (Auto) 3 % (0-12); Neutrophils # (Auto) 15.3 Thou/mm3 (1.8-7.7); Neutrophils % (Auto) 89 % (37-80); Nucleated Red Blood Cell # 0.07 Thou/mm3 (0.00-0.00); Nucleated Red Blood Cell % 0 /100 WBC (0); Platelet Count 483 Thou/mm3 (140-440); RDW Standard Deviation 47.0 fL (36.4-46.3); Red Blood Count 7.17 Miln/mm3 (4.00-5.20); White Blood Count 17.3 Thou/mm3 (3.6-11.0)
[2025-04-02 19:55] LABS: Beta Hydroxybutyrate 0.2 mmol/L (<0.6)
[2025-04-02 20:07] LABS: INR 1.0 (0.9-1.3); Partial Thromboplastin Time 26.1 Seconds (22.0-36.0); Prothrombin Time 11.4 Seconds (9.0-12.2)
[2025-04-02 20:14] LABS: B-Type Natriuretic Peptide < 20 pg/mL (0-100)
[2025-04-02 20:18] LABS: Collection Type, Urine Clean Catch
[2025-04-02 20:19] LABS: Alanine Aminotransferase 16 U/L (10-49); Albumin, Serum 6.0 gm/dL (3.5-5.0); Albumin/Globulin Ratio 1.5 (1.2-2.2); Alkaline Phosphatase 421 U/L (46-116); Anion Gap 18 (7-16); Aspartate Amino Transferase 41 U/L (0-34); BUN/Creatinine Ratio 10 Ratio (12-20); Bilirubin,Total 0.5 mg/dL (0.3-1.2); Blood Urea Nitrogen 28 mg/dL (9-23); Calcium 11.6 mg/dL (8.3-10.6); Calcium (Corrected) 11.6 mg/dL (8.5-10.1); Chloride 103 mMol/L (98-107); Creatinine (Component) 2.8 mg/dL (0.6-1.3); Estimated Creatinine Clearance 17.4 mL/min (>60); Globulin 4.0 gm/dL (2.3-3.5); Glucose 134 mg/dL (74-106); Lipase 994 U/L (12-53); Magnesium 3.2 mg/dL (1.6-2.6); Osmolality,Calculated 273 (275-295); Potassium 4.0 mMol/L (3.4-5.1); Procalcitonin 0.20 ng/ml (0.0-0.49); Sodium 133 mMol/L (136-145); Total Protein 10.0 gm/dL (5.7-8.2); eGFR 20 See Note
[2025-04-02 20:24] LABS: Carbon Dioxide 12.4 mMol/L (20.0-31.0)
[2025-04-02 20:28] LABS: Bacteria,Urine 1+; Bilirubin,Urine Negative (Negative); Blood,Urine 3+ (Negative); Color,Urine Yellow (Lt Yel-Yel); Culture Indicated,Urine Contaminated; Glucose, Urine Trace (Negative); Hyaline Casts,Urine 2 /hpf (0-1); Ketones,Urine Trace (Negative); Leukocyte Esterase,Urine Positive (Negative); Nitrite,Urine Negative (Negative); PH,Urine 6.0 (5.0-7.0); Protein,Urine 3+ (Neg - Trace); RBC,Urine 627 /hpf (0-3); Specific Gravity,Urine 1.016 (1.001-1.035); Squamous Epithelial Cell,Urine 53 /hpf (0-5); Urobilinogen,Urine Negative mg/dL (0.0-1.0); WBC,Urine 834 /hpf (0-5)
[2025-04-02 20:30] LABS: Clarity,Urine Turbid (Clear/Hazy)
[2025-04-02 21:01] LABS: Path Review Blood Smear Sent to Pathologist
[2025-04-02 21:06] VITALS: BP 147/90; PULSE 79; RESP 18; TEMP 37.2; O2SAT 99
[2025-04-02 21:39] LABS: Amphetamine/Methamp Scrn,U Negative (Negative); Barbiturate Screen,Urine Negative (Negative); Benzodiazepines Screen,Urine Negative (Negative); Benzoylecgonine Screen, Ur Negative (Negative); Fentanyl Screen,Urine Negative (Negative); Opiate Screen,Urine Positive (Negative); THC Screen,Urine Positive (Negative)
[2025-04-02] MEDS: Sodium Bicarb 8.4% 50ml Vial* 88.23 MEQ in DEXTROSE 5%-WATER 500 ML 100 MEQ IV (21:53)
[2025-04-02 22:14] LABS: Lactate (Lactic Acid) 1.8 mMol/L (0.4-2.0)
[2025-04-02 22:41] LABS: Alanine Aminotransferase 13 U/L (10-49); Albumin, Serum 5.0 gm/dL (3.5-5.0); Albumin/Globulin Ratio 2.3 (1.2-2.2); Alkaline Phosphatase 313 U/L (46-116); Amylase 666 U/L (30-118); Anion Gap 14 (7-16); Aspartate Amino Transferase 31 U/L (0-34); BUN/Creatinine Ratio 13 Ratio (12-20); Bilirubin,Total 0.4 mg/dL (0.3-1.2); Blood Urea Nitrogen 28 mg/dL (9-23); Calcium 9.8 mg/dL (8.3-10.6); Calcium (Corrected) 9.8 mg/dL (8.5-10.1); Carbon Dioxide 15.4 mMol/L (20.0-31.0); Chloride 108 mMol/L (98-107); Creatinine (Component) 2.2 mg/dL (0.6-1.3); Estimated Creatinine Clearance 22.1 mL/min (>60); Globulin 2.2 gm/dL (2.3-3.5); Glucose 88 mg/dL (74-106); Lipase 405 U/L (12-53); Osmolality,Calculated 278 (275-295); Potassium 3.9 mMol/L (3.4-5.1); Sodium 137 mMol/L (136-145); Total Protein 7.2 gm/dL (5.7-8.2); eGFR 27 See Note
[2025-04-02 22:42] LABS: Reflex Lactate? Y
[2025-04-02 22:53] LABS: Lactic Acid, 3 HR 1.1 mMol/L (0.4-2.0)
[2025-04-02 23:12] VITALS: BMI 19.8
[2025-04-03] VITALS: BP 158/99; PULSE 68; RESP 18; TEMP 36.6; O2SAT 99
[2025-04-03 04:00] VITALS: BP 136/81; PULSE 78; RESP 16; TEMP 36.4; O2SAT 95
[2025-04-03] MEDS: SODIUM CHLORIDE 0.9% 1000 ML 1,000 ML 125 ML IV ×3 (04:51→20:20)
[2025-04-03] MEDS: Sodium Bicarb 8.4% 50ml Vial* 88.23 MEQ in DEXTROSE 5%-WATER 500 ML 100 MEQ IV ×3 (04:52→20:20)
[2025-04-03 08:00] VITALS: BP 105/65; PULSE 73; RESP 18; TEMP 36.1; O2SAT 95
--- NOTE | 2025-04-03 09:06 | PD.RESHP ---
Documentation for date of: 04/02/25 [facility] History of Present Illness Chief complaint: Abdominal pain History of present illness: History of Present Illness: 48y/o F with PMH of constipation s/p ileostomy, gastroparesis, renal calculi, recurrent metabolic acidosis [secondary to tubular acidosis and GI losses], CKD stage III, multiple sclerosis(under Dr. Vega-on Jax), anxiety, depression, seizures, hypothyroidism, presents to the hospital on 04/02/2025 due to worsening nausea, vomiting, and abdominal pain. Patient was admitted due to similar symptoms in 10/22/2024. The patient reports a 10 year history of fluctuating nausea, vomiting, and abdominal pain. At the time when the symptom started 10 years ago, she had severe constipation, and diagnosed with gastroparesis. Due to these symptoms, she developed poor oral intake and weight loss, with her weight decreasing to 72 lbs at the time. She underwent a G-POEM procedure at [facility] to reduce vomiting, but she still felt nausea for approximately 1 year afterwards. In 2016, she required placement of an ileostomy bag for her underlying gastrointestinal condition. In 2018, she was diagnosed with multiple sclerosis. This year, she has had three seizure episodes, described by her father as tremors involving her entire body, loss of consciousness, and falls to the ground. She reported experiencing a prodrome of feeling weird before each episode and mild confusion postictally. She is planning to follow up with a GI specialist in [place] due to new symptoms of mucus and blood per rectum with associated urgency to defecate. On the day of presentation, she experienced worsening nausea, vomiting, and abdominal pain, accompanied by chills and subjective fever. She denies hematemesis, bilious emesis ,or changes in the appearance or contents of her ileostomy output. Most of her abdominal pain is in upper quadrant and around ileostomy bag area. Patient wants to get discharged as early as possible. Denies chest pain, palpation, dizziness, headache, or SOB. ED course: Labs: CBC shows a leukocytosis of 17.3 H&H of 912.9 and 49.0. Platelets at 483. No bandemia. Coags within excepted limits VBG shows a 7.23 pCO2 of 29 pO2 of 44% with a 29 mm. Base deficit is of 14 CMP shows a sodium 133 potassium of 4.0 chloride 103 CO2 of 12.4 anion gap of 18 BUN of 28 creatinine of 2.8 glucose of 134 lactic acid 3.7 mag 3.2 AST 41 alk phos of 421 ALT 16 total bili at 0.5. Lipase at 944. Urine is turbid 3+ protein 3+ blood. RBCs at 627 WBCs at 838 squamous epithelial 50 31+ bacteria leukocyte esterase positive nitrite negative. EKG (04/02/2025): Ventricular rate of 68 MN interval 109 QRS of 83 QTc of 392 this is a junctional rhythm. In ED, patient was given IVF bolus LR 1L x2, Metoclopramide 10mg IV x1, Morphine 4 mg IV x2, and IVF maintenance dose NS 125ml/hr IV, Sodium Bicarb 8.4% IV 100mls/hr Medical history: As stated above Surgical history: Ileostomy, tubal ligation, bilateral breast implants. Allergies: Ciprofloxacine and Ceftin: causes severe N/V Medications: Pending official med rec Family history: Mother has diabetes Social history: Denies smoking cigarettes, drinking alcohol or using other illicit drugs. Patient smokes Marijuana more than once per month. ROS: All 12 systems assessed and the patient denies unless otherwise stated in HPI Patient will be admitted for management of pancreatitis, MIKE, and metabolic acidosis. Review of Systems Review of Systems Narrative Review of Systems: All 12 systems assessed and the patient denies unless otherwise stated in HPI Past Medical History Past Medical History NEUROLOGIC: Positive Multiple Sclerosis; Negative Neurological Disorders or Seizures CARDIAC: Positive Cardiac Disorders, Edema and Hypotension; Negative Congestive Heart Failure RESPIRATORY: Negative Chronic Obstructive Pulmonary Disease (COPD) or Asthma GASTROINTESTINAL: Positive Gastrointestinal Disorders, Pancreatitis and Obstructive Bowel; Negative Hepatitis or Colorectal Cancer GENITOURINARY: Negative Genitourinary Disorders, Renal Disease or Prostate Cancer REPRODUCTIVE: Positive Previous Pregnancies; Negative Breast Cancer or Testicular Cancer MUSCULOSKELETAL: Positive Musculoskeletal Disorders and Fibromyalgia; Negative Bone Cancer or Carpal Tunnel Syndrome ENT: Negative Cataracts ENDOCRINE: Positive Hypothyroidism; Negative Endocrine Disorders, Diabetes Mellitus Type 1 or Diabetes Mellitus Type 2 HEMATOLOGIC: Positive Blood Disorders and Anemia; Negative Sickle Cell Disease PSYCHO/SOCIAL: Positive Depression OTHER HISTORY: Positive Falls and Chicken Pox; Negative Autoimmune Disease, Blood Transfusions, Blood Transfusion Reaction, Anesthesia Reactions, Human Immunodeficiency Virus (HIV), Measles, Mumps, Rubella ([place] Measles), Pertussis, Clostridium Difficile, Breast Cancer, Cervical Cancer, Colorectal Cancer, Lung Cancer, Ovarian Cancer, Prostate Cancer or Testicular Cancer Family History FAMILY HISTORY: Positive Family Cardiac Disorders, Family Gastrointestinal Problems and Family Cancer; Negative Family Psychiatric Problems, Family Respiratory Disorders, Family Surgery or Family Anesthesia Reaction Surgical History SURGICAL: Positive Abdominal Surgery and Tubal Ligation; Negative Cardiac Surgery, Endocrine Surgery, Ear Surgery, Tympanostomy Tube, Eye Surgery, Nose Surgery, Oral Surgery, Tonsillectomy, Adenoidectomy, Cochlear Implant, Corneal Transplant, Throat Surgery, Tracheostomy, Nephrectomy, Transurethral Resection, Joint Replacement, Amputation, Open Reduction Internal Fixation, Arthroscopy, Mastectomy, Lumpectomy or Section Social History SMOKING STATUS: Never smoker Exam Vital Signs Temp Pulse Resp BP Pulse Ox O2 Del Method 97.0 F 73 18 105/65 95 Room Air 04/03/25 08:00 04/03/25 08:00 04/03/25 08:00 04/03/25 08:00 04/03/25 08:00 04/03/25 08:00 Narrative Exam General: No acute distress, well nourished, AAO x3 Eye: PERRL, EOMI, normal conjunctiva, no scleral icterus HENT: Normocephalic, atraumatic, hearing intact to conversation at normal volume, moist oral mucosa Neck: Supple, non-tender, no JVD, no lymphadenopathy Lungs: Non-labored respirations, symmetric chest rise, Clear to auscultate bilaterally, No wheezing, rhonchi, crackles Heart: Peripheral pulses intact bilaterally, Regular Rate and Rhythm. Abdomen: Soft, non-distended, no palpable masses, No erythema or swelling around Ileostomy bag placement area. pain in upper quadrants on palpation. Musculoskeletal: Normal range of motion and strength, No cyanosis or edema, No visible joint swelling Skin: Skin is warm, dry, no rashes or lesions. Psychiatric: Cooperative, appropriate mood and affect, Awake and alert, not agitated Neuro: Cranial nerves II-XII grossly intact. Sensations intact to light touch. Results: Labs 04/04/25 04:20 04/04/25 11:53 Labs: Short CBC 04/02/25 Range/Units 19:36 WBC 17.3 H (3.6-11.0) Thou/mm3 Hgb 12.9 (12.0-16.0) g/dL Hct 49.0 H (36.0-46.0) % Plt Count 483 H (140-440) Thou/mm3 BMP 04/02/25 04/02/25 19:36 21:49 Sodium 133 L 137 Potassium 4.0 3.9 Chloride 103 108 H Carbon Dioxide 12.4 L* 15.4 L BUN 28 H 28 H Creatinine 2.8 H 2.2 H D Glucose 134 H 88 Calcium 11.6 H 9.8 D Liver Function 04/02/25 04/02/25 Range/Units 19:36 21:49 Total Bilirubin 0.5 0.4 (0.3-1.2) mg/dL AST 41 H 31 (0-34) U/L ALT 16 13 (10-49) U/L Alkaline Phosphatase 421 H 313 H D (46-116) U/L Albumin 6.0 H 5.0 D (3.5-5.0) gm/dL Urine 04/02/25 Range/Units 20:02 Urine Color Yellow (Lt Yel-Yel) Urine Clarity Turbid A (Clear/Hazy) Urine pH 6.0 (5.0-7.0) Ur Specific [place] 1.016 (1.001-1.035) Urine Protein 3+ A (Neg - Trace) Urine Glucose (UA) Trace (Negative) ABG Interpretation ABG results: 04/02/25 19:36 VBG pH 7.23 L VBG pCO2 29 L VBG pO2 29 VBG Base Excess -14 L Quality Measures Quality Measures none Medications Home Medications and Allergies Home Medications ?Medication ?Instructions ?Recorded ?Confirmed ?Type pyridostigmine bromide 60 mg tablet 90 mg PO BID ##60 06/24/15 04/02/25 History ondansetron 4 mg disintegrating 4 mg PO BID PRN n/v #0 tabs 03/04/16 04/02/25 History tablet duloxetine 20 mg capsule,delayed 20 mg PO BID #0 caps 04/02/17 04/02/25 History release (Cymbalta) lorazepam 0.5 mg tablet 0.5 mg PO BID PRN Anxiety #0 tabs 04/02/17 04/02/25 History linaclotide 290 mcg capsule 290 mcg PO QDAY 01/18/19 04/02/25 History (Linzess) levothyroxine 25 mcg tablet 25 mcg PO QDAY 08/13/21 04/02/25 History cyanocobalamin (vitamin B-12) 1,000 mcg subcut QWEEK 08/26/22 04/02/25 History 1,000 mcg/mL injection solution cyclobenzaprine 5 mg tablet 5 mg PO HS PRN Spasms 08/26/22 04/02/25 History ergocalciferol (vitamin D2) 1,250 50,000 unit PO QWEEK 08/26/22 04/02/25 History mcg (50,000 unit) capsule potassium chloride 20 mEq/15 mL 20 meq PO TID PRN cramping 08/26/22 04/02/25 History oral liquid sodium bicarbonate 650 mg tablet 1,950 mg PO BID 08/26/22 04/02/25 History buspirone 15 mg tablet 15 mg PO QDAY 10/20/24 04/02/25 History atorvastatin 20 mg tablet 20 mg PO HS 04/02/25 04/02/25 History calcitriol 0.25 mcg capsule 0.25 mcg PO . 3 times a week 04/02/25 04/02/25 History Allergies Allergy/AdvReac Type Severity Reaction Status Date / Time ciprofloxacin Allergy Severe SEVERE Verified 04/02/25 19:15 NAUSEA AND VOMITING cefuroxime (From Ceftin) Allergy Verified 04/02/25 19:15 Visit Medications Sodium Chloride (Ns) 1,000 mls @ 125 mls/hr IV .Q8H [facility] Stop: 05/02/25 19:16 Last Admin: 04/03/25 04:51 Dose: 125 mls/hr Sodium Bicarbonate 88.23 meq/ (Dextrose) 588.23 mls @ 100 mls/hr IV .Q5H53M [facility] Stop: 04/03/25 09:30 Last Admin: 04/03/25 04:52 Dose: 100 mls/hr Sodium Bicarbonate 88.23 meq/ (Dextrose) 588.23 mls @ 100 mls/hr IV .Q5H53M [facility] Stop: 05/03/25 09:29 Morphine Sulfate (Morphine Sulf Inj 4 Mg/Ml Vial) 2 mg IVP X1 PRN PRN Reason: PAIN Ondansetron HCl (Ondansetron Inj 2 Mg/Ml Inj 2 Ml) 4 mg IVP X1 PRN; Protocol PRN Reason: NAUSEA OR VOMITING Discontinued Medications Lactated Ringer's (Lactated Ringers) 1,000 mls @ 999 mls/hr IV .Q1H1M ONE Stop: 04/02/25 20:14 Last Infusion: 04/02/25 20:57 Dose: Infused Lactated Ringer's (Lactated Ringers) 1,000 mls @ 999 mls/hr IV .Q1H1M ONE Stop: 04/02/25 20:16 Last Infusion: 04/02/25 20:57 Dose: Infused Sodium Bicarbonate 88.23 meq/ (Dextrose) 588.23 mls @ 100 mls/hr IV .Q5H53M BONNY Stop: 05/03/25 09:29 Metoclopramide HCl (Metoclopramide Inj 5 Mg/Ml Vial 2 Ml) 10 mg IVP X1 ONE; Protocol Stop: 04/02/25 19:17 Last Admin: 04/02/25 19:36 Dose: 10 mg Morphine Sulfate (Morphine Sulf Inj 4 Mg/Ml Vial) 4 mg IVP X1 ONE Stop: 04/02/25 19:17 Last Admin: 04/02/25 19:37 Dose: 4 mg Assessment & Plan Plan 48y/o F with PMH of constipation s/p ileostomy, gastroparesis, renal calculi, recurrent metabolic acidosis [secondary to tubular acidosis and GI losses], CKD stage III, multiple sclerosis(under Dr. Vega-on [place]), anxiety, depression, seizures, hypothyroidism, presents to the hospital on 04/02/2025 due to worsening nausea, vomiting, and abdominal pain. Patient will be admitted for management of pancreatitis, MIKE, and metabolic acidosis. #Idiopathic Acute pancreatitis -On admission, WBC:17.3, sodium:137, bicarb:15.4, BUN: 28, Cr:2.2, eGFR:27, Amylase: 666, Lipase:405, corrected CA: 9.8 - Past CTAP noncontrast (10/19/2024): Numerous bilateral staghorn calculi, no hydronephrosis or ureteral calculi, Normal appendix, No bowel obstruction, No bladder mass or bladder calculi - Past Gall Bladder US(10/19/2024): Normal gallbladder, Fatty liver., Multiple staghorn-type renal calculi - Past HIDA scan (10/20/2024): Gallbladder activity, Normal gallbladder ejection fraction, 40%, normal greater than 35% - Patient noted that she does not drink alcohol. - Less likely to be gallstone pancreatitis, trauma, hypercalcemia, or alcohol -Presented in the past in the ED for pancreatitis treated conservatively Plan: -Moderate fluid infusion with 1 L LR maintenance fluid at 125 mL/hr -Pain regimen: Morphine 2mg IV x1 prn -Placed on NPO (advance diet as tolerated) -Started IV Zofran 4 mg x1 prn for nausea #MIKE -On admission, BUN 28, Cr 2.2 (Baseline of 1.2 ), eGFR: 27 -Likely prerenal, in the setting of dehydration from vomiting. -No edema, lungs clear, mucus membranes dry. Plan: -Continue 1 L IV LR 125ml/hr maintenance fluid -Avoid nephrotoxins -Renally dose medication # Metabolic acidosis -Patient had history of metabolic acidosis likely secondary to ileostomy losses//MIKE -In Admission, bicarb level of 15.4 -Patient received fluid boluses in the ED Plan -Will continue maintenance fluids -Continue Sodium bicarb 8.4% IV 100mls/hr # Multiple sclerosis - Patient is following Dr. Alcantar # Hx of hypothyrodism # Hx of anxiety/depression # Hx of constipation s/p ileostomy -Continue home medication. Disposition: admitted for management of pancreatitis, MIKE, and metabolic acidosis. Diet: NPO GI prophylaxis:Not needed DVT prophylaxis: Not needed Code: FULL Assessment and plan discussed with my attending physician Dr. Steven Pina (PGY-1)- Internal medicine resident Attending Provider Attestation/Addendum Patient seen and examined with resident physician Dr. Pina. Note reviewed, agree with findings and recommendations. Patient admitted with abdominal pain and noted to have acute pancreatitis. N.p.o., supportive therapy.
[2025-04-03 12:00] VITALS: BP 115/79; PULSE 71; RESP 18; TEMP 36.6; O2SAT 95
--- NOTE | 2025-04-03 13:40 | PD.RESPRO ---
Documentation for date of: 04/03/25 Subjective Subjective Interval history: Patient admitted with acute pancreatitis. No Overnight events. Labs reviewed and patient examined at the bedside. Patient's nausea, vomiting, and abdominal pain has improved. No other complaints. Will continue to monitor her lab values. Continue with IVF. Exam Vital Signs Temp Pulse Resp BP Pulse Ox O2 Del Method 97.0 F 73 18 105/65 95 Room Air 04/03/25 08:00 04/03/25 08:00 04/03/25 08:00 04/03/25 08:00 04/03/25 08:00 04/03/25 08:00 Narrative Exam General: No acute distress, well nourished, AAO x3 Eye: PERRL, EOMI, normal conjunctiva, no scleral icterus HENT: Normocephalic, atraumatic, hearing intact to conversation at normal volume, moist oral mucosa Neck: Supple, non-tender, no JVD, no lymphadenopathy Lungs: Non-labored respirations, symmetric chest rise, Clear to auscultate bilaterally, No wheezing, rhonchi, crackles Heart: Peripheral pulses intact bilaterally, Regular Rate and Rhythm. Abdomen: Soft, non-distended, no palpable masses, No erythema or swelling around Ileostomy bag placement area. pain in upper quadrants on palpation. Musculoskeletal: Normal range of motion and strength, No cyanosis or edema, No visible joint swelling Skin: Skin is warm, dry, no rashes or lesions. Psychiatric: Cooperative, appropriate mood and affect, Awake and alert, not agitated Neuro: Cranial nerves II-XII grossly intact. Sensations intact to light touch. Objective Labs 04/04/25 04:20 04/04/25 11:53 Labs: Laboratory Results - last 24 hr 04/02/25 04/02/25 04/02/25 19:36 20:02 21:49 WBC 17.3 H RBC 7.17 H Hgb 12.9 Hct 49.0 H MCV 68 L MCH 18.0 L MCHC 26.3 L RDW Std Deviation 47.0 H Plt Count 483 H Neut % (Auto) 89 H Lymph % (Auto) 7 L [place] % (Auto) 3 Eos % (Auto) 0 Baso % (Auto) 1 Neut # (Auto) 15.3 H Lymph # (Auto) 1.2 [place] # (Auto) 0.5 Eos # (Auto) 0.0 Baso # (Auto) 0.2 Immature Gran # (Auto) 0.07 H Absolute Nucleated RBC 0.07 H Immature Gran % 0 Nucleated RBC % 0 Smear Path Review Sent to Pathologist PT 11.4 INR 1.0 APTT 26.1 VBG pH 7.23 L VBG pCO2 29 L VBG pO2 29 VBG O2 Sat (Donald) 44 L VBG Base Excess -14 L Sodium 133 L 137 Potassium 4.0 3.9 Chloride 103 108 H Carbon Dioxide 12.4 L* 15.4 L Anion Gap 18 H 14 BUN 28 H 28 H Creatinine 2.8 H 2.2 H D Estim Creat Clear Calc 17.4 L 22.1 L eGFR 20 L 27 L BUN/Creatinine Ratio 10 L 13 Glucose 134 H 88 Calculated Osmolality 273 L 278 Lactic Acid 3.7 H 1.8 Calcium 11.6 H 9.8 D Corrected Calcium 11.6 H 9.8 D Magnesium 3.2 H Total Bilirubin 0.5 0.4 AST 41 H 31 ALT 16 13 Alkaline Phosphatase 421 H 313 H D B-Natriuretic Peptide < 20 Total Protein 10.0 H 7.2 Albumin 6.0 H 5.0 D Globulin 4.0 H 2.2 L Albumin/Globulin Ratio 1.5 2.3 H Amylase 666 H* Lipase 994 H 405 H D Beta-Hydroxybutyrate/Acetoacetate 0.2 Procalcitonin 0.20 Ur Collection Type Clean Catch Urine Color Yellow Urine Clarity Turbid A Urine pH 6.0 Ur Specific [place] 1.016 Urine Protein 3+ A Urine Glucose (UA) Trace Urine Ketones Trace Urine Blood 3+ A Urine Nitrite Negative Urine Bilirubin Negative Urine Urobilinogen (Auto) Negative Ur Leukocyte Esterase Positive Urine RBC 627 H Urine WBC 834 H Ur Squamous Epith Cells 53 H Urine Bacteria 1+ A Hyaline Casts 2 H Ur Culture Indicated? Contaminated Urine Opiates Screen Positive A Urine Fentanyl Screen Negative Ur Barbiturates Screen Negative U Amphetamin/Meth Scrn Negative U Benzodiazepines Scrn Negative U Cocaine Metab Screen Negative U Marijuana (THC) Screen Positive A 04/02/25 22:46 WBC RBC Hgb Hct MCV MCH MCHC RDW Std Deviation Plt Count Neut % (Auto) Lymph % (Auto) [place] % (Auto) Eos % (Auto) Baso % (Auto) Neut # (Auto) Lymph # (Auto) [place] # (Auto) Eos # (Auto) Baso # (Auto) Immature Gran # (Auto) Absolute Nucleated RBC Immature Gran % Nucleated RBC % Smear Path Review PT INR APTT VBG pH VBG pCO2 VBG pO2 VBG O2 Sat (Donald) VBG Base Excess Sodium Potassium Chloride Carbon Dioxide Anion Gap BUN Creatinine Estim Creat Clear Calc eGFR BUN/Creatinine Ratio Glucose Calculated Osmolality Lactic Acid 1.1 Calcium Corrected Calcium Magnesium Total Bilirubin AST ALT Alkaline Phosphatase B-Natriuretic Peptide Total Protein Albumin Globulin Albumin/Globulin Ratio Amylase Lipase Beta-Hydroxybutyrate/Acetoacetate Procalcitonin Ur Collection Type Urine Color Urine Clarity Urine pH Ur Specific [place] Urine Protein Urine Glucose (UA) Urine Ketones Urine Blood Urine Nitrite Urine Bilirubin Urine Urobilinogen (Auto) Ur Leukocyte Esterase Urine RBC Urine WBC Ur Squamous Epith Cells Urine Bacteria Hyaline Casts Ur Culture Indicated? Urine Opiates Screen Urine Fentanyl Screen Ur Barbiturates Screen U Amphetamin/Meth Scrn U Benzodiazepines Scrn U Cocaine Metab Screen U Marijuana (THC) Screen ABG Interpretation ABG results: 04/02/25 19:36 VBG pH 7.23 L VBG pCO2 29 L VBG pO2 29 VBG Base Excess -14 L Quality Measures Quality Measures none Assessment & Plan Assessment Current Active Medications: Generic Name Dose Route Start Last Admin Trade Name Freq PRN Reason Stop Dose Admin Sodium Chloride 1,000 mls @ 125 mls/hr 04/02/25 19:17 04/03/25 11:55 Ns IV 05/02/25 19:16 125 mls/hr .Q8H BONNY Administration Sodium Bicarbonate 88.23 meq/ 588.23 mls @ 100 mls/hr 04/03/25 09:30 04/03/25 11:51 Dextrose IV 05/03/25 09:29 100 mls/hr .Q5H53M BONNY Administration Morphine Sulfate 2 mg 04/02/25 21:31 Morphine Sulf Inj 4 Mg/Ml Vial IVP X1 PRN PAIN Ondansetron HCl 4 mg 04/02/25 21:26 Ondansetron Inj 2 Mg/Ml Inj 2 Ml IVP X1 PRN NAUSEA OR VOMITING Protocol Plan 48y/o F with PMH of constipation s/p ileostomy, gastroparesis, renal calculi, recurrent metabolic acidosis [secondary to tubular acidosis and GI losses], CKD stage III, multiple sclerosis(under Dr. Vega-on [place]), anxiety, depression, seizures, hypothyroidism, presents to the hospital on 04/02/2025 due to worsening nausea, vomiting, and abdominal pain. Patient will be admitted for management of pancreatitis, MIKE, and metabolic acidosis. #Idiopathic Acute pancreatitis -On admission, WBC:17.3, sodium:137, bicarb:15.4, BUN: 28, Cr:2.2, eGFR:27, Amylase: 666, Lipase:405, corrected CA: 9.8 - Past CTAP noncontrast (10/19/2024): Numerous bilateral staghorn calculi, no hydronephrosis or ureteral calculi, Normal appendix, No bowel obstruction, No bladder mass or bladder calculi - Past Gall Bladder US(10/19/2024): Normal gallbladder, Fatty liver., Multiple staghorn-type renal calculi - Past HIDA scan (10/20/2024): Gallbladder activity, Normal gallbladder ejection fraction, 40%, normal greater than 35% - Patient noted that she does not drink alcohol. - Less likely to be gallstone pancreatitis, trauma, hypercalcemia, or alcohol -Presented in the past in the ED for pancreatitis treated conservatively Plan: -Moderate fluid infusion with 1 L LR maintenance fluid at 125 mL/hr -Pain regimen: Morphine 2mg IV x1 prn -Placed on NPO (advance diet as tolerated) -Started IV Zofran 4 mg x1 prn for nausea #MIKE -On admission, BUN 28, Cr 2.2 (Baseline of 1.2 ), eGFR: 27 -Likely prerenal, in the setting of dehydration from vomiting. -No edema, lungs clear, mucus membranes dry. Plan: -Continue 1 L IV LR 125ml/hr maintenance fluid -Avoid nephrotoxins -Renally dose medication # Metabolic acidosis -Patient had history of metabolic acidosis likely secondary to ileostomy losses -In Admission, bicarb level of 15.4 -Patient received fluid boluses in the ED Plan -Will continue maintenance fluids -Continue Sodium bicarb 8.4% IV 100mls/hr # Multiple sclerosis - Patient is following Dr. Alcantar # Hx of hypothyrodism # Hx of anxiety/depression # Hx of constipation s/p ileostomy -Continue home medication. Disposition: admitted for management of pancreatitis, MIKE, and metabolic acidosis. Diet: Clear liquid diet GI prophylaxis:Not needed DVT prophylaxis: Not needed Code: FULL Assessment and plan discussed with my attending physician Dr. Steven Pina (PGY-1)- Internal medicine resident Attending Provider Attestation/Addendum Patient seen and examined with resident physician Dr. Pina. Note reviewed, agree with findings and recommendations. Patient currently seen in medical floor. Resting comfortably. Abdominal pain much better. Will start clear liquid diet and advance as tolerated. Replace potassium, bicarbonate, phosphorus, magnesium.
[2025-04-03 16:00] VITALS: BP 93/62; PULSE 87; RESP 18; TEMP 36.3; O2SAT 96
[2025-04-03] MEDS: ACETAMINOPHEN 325 MG TABLET 650 MG PO (18:45)
[2025-04-03 20:00] VITALS: BP 104/71; PULSE 64; RESP 17; TEMP 36.3; O2SAT 93
[2025-04-04] VITALS: BP 93/58; PULSE 68; RESP 16; TEMP 36.3; O2SAT 98
[2025-04-04] MEDS: Sodium Bicarb 8.4% 50ml Vial* 88.23 MEQ in DEXTROSE 5%-WATER 500 ML 100 MEQ IV (02:05)
[2025-04-04] MEDS: ACETAMINOPHEN 325 MG TABLET 650 MG PO (02:29)
[2025-04-04 04:00] VITALS: BP 97/60; PULSE 87; RESP 15; TEMP 36.1; O2SAT 94
[2025-04-04 06:00] LABS: Basophils # (Auto) 0.1 Thou/mm3 (0.0-0.2); Basophils % (Auto) 2 % (0-2.5); Eosinophils # (Auto) 0.1 Thou/mm3 (0.0-0.5); Eosinophils % (Auto) 1 % (0-10); Hematocrit 28.7 % (36.0-46.0); Immature Granulocytes Auto 0.03 Thou/mm3 (0.00-0.00); Lymphocytes # (Auto) 1.5 Thou/mm3 (1.0-4.8); Lymphocytes % (Auto) 22 % (10-50); Mean Corpuscular HGB Conc 27.5 g/dl (31.0-37.0); Mean Corpuscular Hemoglobin 18.6 pg (25.0-35.0); Mean Corpuscular Volume 68 fL (80-100); Monocytes # (Auto) 0.7 Thou/mm3 (0.0-0.8); Monocytes % (Auto) 11 % (0-12); Neutrophils # (Auto) 4.3 Thou/mm3 (1.8-7.7); Neutrophils % (Auto) 63 % (37-80); Nucleated Red Blood Cell # 0.00 Thou/mm3 (0.00-0.00); Nucleated Red Blood Cell % 0 /100 WBC (0); Platelet Count 261 Thou/mm3 (140-440); RDW Standard Deviation 45.3 fL (36.4-46.3); Red Blood Count 4.24 Miln/mm3 (4.00-5.20); White Blood Count 6.8 Thou/mm3 (3.6-11.0)
[2025-04-04 06:02] LABS: Hemoglobin 7.9 g/dL (12.0-16.0)
[2025-04-04 07:07] LABS: Alanine Aminotransferase 7 U/L (10-49); Albumin, Serum 3.4 gm/dL (3.5-5.0); Albumin/Globulin Ratio 2.6 (1.2-2.2); Alkaline Phosphatase 192 U/L (46-116); Amylase 176 U/L (30-118); Anion Gap 11 (7-16); Aspartate Amino Transferase 25 U/L (0-34); BUN/Creatinine Ratio 10 Ratio (12-20); Bilirubin,Total 0.4 mg/dL (0.3-1.2); Blood Urea Nitrogen 11 mg/dL (9-23); Calcium 7.5 mg/dL (8.3-10.6); Calcium (Corrected) 8.0 mg/dL (8.5-10.1); Carbon Dioxide 32.4 mMol/L (20.0-31.0); Chloride 101 mMol/L (98-107); Creatinine (Component) 1.1 mg/dL (0.6-1.3); Estimated Creatinine Clearance 48.0 mL/min (>60); Globulin 1.3 gm/dL (2.3-3.5); Glucose 85 mg/dL (74-106); Magnesium 1.7 mg/dL (1.6-2.6); Osmolality,Calculated 285 (275-295); Phosphorous 2.2 mg/dL (2.4-5.1); Sodium 144 mMol/L (136-145); Total Protein 4.7 gm/dL (5.7-8.2); eGFR > 60 See Note
[2025-04-04 07:10] LABS: Potassium 2.1 mMol/L (3.4-5.1)
[2025-04-04 08:00] VITALS: BP 104/60; PULSE 77; RESP 18; TEMP 36.1; O2SAT 95
[2025-04-04] MEDS: POTASSIUM PHOS 22.5 MMOL in SODIUM CHLORIDE 0.9% 500 ML 500 ML 82.778 MMOL IV (08:06)
--- NOTE | 2025-04-04 08:29 | ESDS_ITS ---
Planned Discharge Date 04/04/25 DS: Providers Provider Date of admission: 04/02/25 21:27 Primary care physician: Irma Yun MD Admitting Provider: Irma Yun MD Attending Provider on Admission: Irma Yun MD Attending Provider on DC: Carissa Pina DO Discharging Provider: Carissa Pina DO DS: Diagnosis Problem List Completed Was Problem List Reviewed/Reconciled?: Yes Hospital Course Hospital Course Hospital course: Summary: 48y/o F with PMH of? constipation s/p ileostomy, gastroparesis, renal calculi, recurrent metabolic acidosis [secondary to tubular acidosis and GI losses], CKD stage III, multiple sclerosis(under Dr. Vega-on Ocrevus), anxiety, depression, seizures, hypothyroidism, presents to the hospital on 04/02/2025 due to worsening nausea, vomiting, and abdominal pain. Patient will be admitted for management of pancreatitis, MIKE, and metabolic acidosis. Patiet was given IVF LR maintenance dose and Sodium bicarb 8.4% IV 100mls/hr. ED course: Labs: CBC shows a leukocytosis of 17.3 H&H of 912.9 and 49.0. Platelets at 483. No bandemia. Coags within excepted limits VBG shows a 7.23 pCO2 of 29 pO2 of 44% with a 29 mm. Base deficit is of 14 CMP shows a sodium 133 potassium of 4.0 chloride 103 CO2 of 12.4 anion gap of 18 BUN of 28 creatinine of 2.8 glucose of 134 lactic acid 3.7 mag 3.2 AST 41 alk phos of 421 ALT 16 total bili at 0.5. Lipase at 944. Urine is turbid 3+ protein 3+ blood. RBCs at 627 WBCs at 838 squamous epithelial 50 31+ bacteria leukocyte esterase positive nitrite negative. EKG (04/02/2025): Ventricular rate of 68 VT interval 109 QRS of 83 QTc of 392 this is a junctional rhythm. In ED, patient was given IVF bolus LR 1L x2, Metoclopramide 10mg IV x1, Morphine 4 mg IV x2, and IVF maintenance dose NS 125ml/hr IV, Sodium Bicarb 8.4% IV 100mls/hr Hospital Course: On admission, patient?s amylase was high at 666. Patient received moderate fluid infusion with 1 L LR maintenance fluid at 125 mL/hr and Sodium bicarb 8.4% IV 100mls/hr. Also given Morphine 2mg IV x1 prn as a pain regime. Patient?s amylase was down to 176. In ED, patient's urine RBC, WBC, blood, and protein was extraordinally high, which raised suspicion for contamination. Reordered UA, and results were urine RBC: 7, Urine WBC:32, Urine protein: negative, Urine blood: trace. Patient was discharged and advised to follow up outpatient with her pcp. Dr. Yun. Safe to discharge to Home--discharge diagnosis #Idiopathic Acute pancreatitis #MIKE #Metabolic acidosis #Multiple sclerosis #Hx of hypothyrodism #Hx of anxiety/depression #Hx of constipation s/p ileostomy Instructions: -F/u with Dr. uYn in 1-2 weeks. -If your symptoms worsen,please seek immediate medical attention and return to your nearest emergency room -If you do not have a primary care provider, you may follow up at the [facility] [address], [place] [address], Safe to discharge to Home Assessment and plan discussed with my attending physician Dr. Steven Pina (PGY-1)- Internal medicine resident Status at Discharge Cognitive/behavioral status at discharge: stable Functional status at discharge: independent ambulation Overall status at discharge: patient is back to baseline Time Spent with Patient Time attestation: Total time spent providing and/or coordinating discharge services: Time spent: Greater than 30 minutes Exam Vital Signs Temp Pulse Resp BP Pulse Ox O2 Del Method 97.0 F 77 18 104/60 95 Room Air 04/04/25 08:00 04/04/25 08:00 04/04/25 08:00 04/04/25 08:00 04/04/25 08:00 04/04/25 08:00 Narrative Exam General: No acute distress, skinny, AAO x3 Eye: PERRL, EOMI, normal conjunctiva, no scleral icterus HENT: Normocephalic, atraumatic, hearing intact to conversation at normal volume, moist oral mucosa Neck: Supple, non-tender, no JVD, no lymphadenopathy Lungs: Non-labored respirations, symmetric chest rise, Clear to auscultate bilaterally, No wheezing, rhonchi, crackles Heart: Peripheral pulses intact bilaterally, Regular Rate and Rhythm. Abdomen: Soft, non-distended, no palpable masses, No erythema or swelling around Ileostomy bag placement area. Musculoskeletal: Normal range of motion and strength, No cyanosis or edema, No visible joint swelling Skin: Skin is warm, dry, no rashes or lesions. Psychiatric: Cooperative, appropriate mood and affect, Awake and alert, not agitated Neuro: Cranial nerves II-XII grossly intact. Sensations intact to light touch. Discharge Plan Plan Patient Disposition: HOME (Self Care) Patient condition on transfer: Stable Prescriptions/Referrals Prescriptions/Med Rec: Continued pyridostigmine bromide 60 MG tablet 90 mg PO BID Qty: 60 ondansetron 4 mg Tablet,Disintegrating 4 mg PO BID PRN (Reason: n/v) Qty: 0 lorazepam 0.5 MG tablet 0.5 mg PO BID PRN (Reason: Anxiety) Qty: 0 duloxetine [Cymbalta] 20 MG capsule,delayed release(DR/EC) 20 mg PO BID Qty: 0 Linzess 290 mcg Capsule 290 mcg PO QDAY levothyroxine 25 mcg Tablet 25 mcg PO QDAY buspirone 15 mg tablet 15 mg PO QDAY Patient Comments: TAKE 1 TABLET BY MOUTH EVERY DAY sodium bicarbonate 650 mg Tablet 1,950 mg PO BID cyanocobalamin (vitamin B-12) 1,000 mcg/mL solution 1,000 mcg SUBCUT QWEEK Patient Comments: INJECT 1 ML INTRAMUSCULARLY ONCE A WEEK Rx Instructions: Fridays. ergocalciferol (vitamin D2) 1,250 mcg (50,000 unit) capsule 50,000 unit PO QWEEK Patient Comments: TAKE 1 CAPSULE BY MOUTH ONE TIME PER WEEK Rx Instructions: Fridays. cyclobenzaprine 5 mg tablet 5 mg PO HS PRN (Reason: Spasms) Patient Comments: TAKE 1 TABLET BY MOUTH EVERY DAY AT BEDTIME NEEDED potassium chloride 20 mEq/15 mL Liquid 20 meq PO TID PRN (Reason: cramping) calcitriol 0.25 mcg capsule 0.25 mcg PO . 3 times a week Patient Comments: TAKE 1 CAPSULE BY MOUTH 3 TIMES A WEEK atorvastatin 20 mg tablet 20 mg PO HS Patient Comments: TAKE 1 TABLET BY MOUTH NIGHTLY AT BEDTIME Referrals: Irma Yun MD [Primary Care Provider, Nephrology] Patient/Caregiver Discharge Instructions Discharge Activity: activity as tolerated Education Materials: Understanding Pancreatitis Print Language: Greenlandic Activity Restrictions/Additional Instructions: f/u with dr. yun 1-2 weeks Stand Alone Forms: Leslee Award Info., Patient Portal Info Letter Discharge Order Discharge Orders: Discharge (Routine); Ordered 04/04/25 Ordered By: Irma Yun Quality Discharge Quality Measures none MD Attestestation MD Attestation Patient seen and examined with resident physician Dr. Pina. Note reviewed, agree with findings and recommendations. Patient currently seen in medical floor. Tolerating p.o. without any problems. This morning she was emotional regarding her p.m. which was sent to the office. Patient is medically stable for discharge. Replaced on electrolytes. Creatinine improving.
[2025-04-04] MEDS: DULoxetine HCL 20 MG CAPSULE PO (08:32)
[2025-04-04] MEDS: LEVOTHYROXINE SODIUM 25 MCG TABLET PO (08:33)
[2025-04-04] MEDS: Magnesium Sulfate 2 GM Ivpb 2 GM/50 ML BAG IV (08:37)
[2025-04-04] MEDS: POTASSIUM CHLORIDE 10% 20 MEQ/15 ML UDC 40 MEQ PO ×2 (08:37→11:20)
[2025-04-04] MEDS: ONDANSETRON ODT 4 MG TABRAP PO (08:52)
[2025-04-04 08:59] LABS: Collection Type, Urine Clean Catch
[2025-04-04 09:09] LABS: Bacteria,Urine Rare; Bilirubin,Urine Negative (Negative); Blood,Urine Trace (Negative); Clarity,Urine Clear (Clear/Hazy); Color,Urine Lt-Yellow (Lt Yel-Yel); Glucose, Urine Negative (Negative); Ketones,Urine Negative (Negative); Leukocyte Esterase,Urine Positive (Negative); Nitrite,Urine Negative (Negative); PH,Urine 6.5 (5.0-7.0); Protein,Urine Negative (Neg - Trace); RBC,Urine 7 /hpf (0-3); Specific Gravity,Urine 1.007 (1.001-1.035); Squamous Epithelial Cell,Urine 5 /hpf (0-5); Urobilinogen,Urine Negative mg/dL (0.0-1.0); WBC,Urine 32 /hpf (0-5)
[2025-04-04 09:21] LABS: Lactate (Lactic Acid) 1.7 mMol/L (0.4-2.0)
[2025-04-04 12:00] VITALS: BP 110/65; PULSE 70; RESP 19; TEMP 36.4; O2SAT 96
[2025-04-04 12:31] LABS: Alanine Aminotransferase < 7 U/L (10-49); Albumin, Serum 3.5 gm/dL (3.5-5.0); Albumin/Globulin Ratio 2.5 (1.2-2.2); Alkaline Phosphatase 195 U/L (46-116); Anion Gap 9 (7-16); Aspartate Amino Transferase 20 U/L (0-34); BUN/Creatinine Ratio 10 Ratio (12-20); Bilirubin,Total 0.4 mg/dL (0.3-1.2); Blood Urea Nitrogen 11 mg/dL (9-23); Calcium 8.0 mg/dL (8.3-10.6); Calcium (Corrected) 8.4 mg/dL (8.5-10.1); Carbon Dioxide 34.1 mMol/L (20.0-31.0); Chloride 102 mMol/L (98-107); Creatinine (Component) 1.1 mg/dL (0.6-1.3); Estimated Creatinine Clearance 48.0 mL/min (>60); Globulin 1.4 gm/dL (2.3-3.5); Glucose 94 mg/dL (74-106); Osmolality,Calculated 288 (275-295); Potassium 3.4 mMol/L (3.4-5.1); Sodium 145 mMol/L (136-145); Total Protein 4.9 gm/dL (5.7-8.2); eGFR > 60 See Note
--- NOTE | 2025-04-04 15:51 | PC.SS ---
Patient is alert/oriented. Patient was able to verify demographics. Patient resides with family. Patient was admitted for acute pancreatitis. Patient is independent with ADL's. Patient does not possess any DME. Patient PCP: Dr. Harris. Patient also follows with Dr. Alcantar and GI physician. Patient has an ileostomy bag. She is being followed by [facility] and they see her once a week. Patient states her family provides transportation assistance. Pharmacy: [facility]. Discharge plan is to return home. Alt medical decision maker: ,
== END 2025-04-04 15:44 | disposition home or self-care (01) | DRG 439 ==
LOC: SERX 21:27 → SERHOLD 23:05 → S3NX 23:06
PROVIDERS: Registered Nurse General Practice; Admitting Provider Internal Medicine; Emergency Provider Emergency Medicine; PCP Internal Medicine; Visit Provider Internal Medicine
DX: K85.00 Idiopathic acute pancreatitis without necrosis or infection (principal); E87.1 Hypo-osmolality and hyponatremia; E87.20 Acidosis, unspecified; N17.9 Acute kidney failure, unspecified; I95.9 Hypotension, unspecified; K31.84 Gastroparesis; N18.30 Chronic kidney disease, stage 3 unspecified; E03.9 Hypothyroidism, unspecified; N20.0 Calculus of kidney; G35 Multiple sclerosis; E86.0 Dehydration; Z79.890 Hormone replacement therapy; Z87.442 Personal history of urinary calculi; Z93.2 Ileostomy status; Z88.8 Allergy status to other drugs, medicaments and biological substances; Z88.1 Allergy status to other antibiotic agents
CPT/HCPCS: 36415; 80053; 80307; 81001; 82010; 82150; 82803; 83605; 83690; 83735; 83880; 84100; 84145; 85025; 85610; 85730; 93005; 96361; 96365; 96366; 96375; 99284; J2270; J2765; J3475; J7030; J7060; J7120; J7999; Q0162; A9270

== ENCOUNTER → 2025-04-15 | Outpatient (CLI) | payer BC, SELFPAY ==
[2025-04-15 12:57] LABS: Collection Type, Urine Clean Catch
[2025-04-15 13:21] LABS: Basophils # (Auto) 0.2 Thou/mm3 (0.0-0.2); Basophils % (Auto) 2 % (0-2.5); Eosinophils # (Auto) 0.1 Thou/mm3 (0.0-0.5); Eosinophils % (Auto) 2 % (0-10); Hematocrit 36.9 % (36.0-46.0); Hemoglobin 9.8 g/dL (12.0-16.0); Immature Granulocytes Auto 0.02 Thou/mm3 (0.00-0.00); Lymphocytes # (Auto) 1.8 Thou/mm3 (1.0-4.8); Lymphocytes % (Auto) 24 % (10-50); Mean Corpuscular HGB Conc 26.6 g/dl (31.0-37.0); Mean Corpuscular Hemoglobin 18.1 pg (25.0-35.0); Mean Corpuscular Volume 68 fL (80-100); Monocytes # (Auto) 0.8 Thou/mm3 (0.0-0.8); Monocytes % (Auto) 11 % (0-12); Neutrophils # (Auto) 4.5 Thou/mm3 (1.8-7.7); Neutrophils % (Auto) 61 % (37-80); Nucleated Red Blood Cell # 0.03 Thou/mm3 (0.00-0.00); Nucleated Red Blood Cell % 0 /100 WBC (0); Platelet Count 436 Thou/mm3 (140-440); RDW Standard Deviation 48.5 fL (36.4-46.3); Red Blood Count 5.40 Miln/mm3 (4.00-5.20); White Blood Count 7.4 Thou/mm3 (3.6-11.0)
[2025-04-15 13:39] LABS: Albumin, Serum 4.8 gm/dL (3.5-5.0); Anion Gap 9 (7-16); BUN/Creatinine Ratio 18 Ratio (12-20); Blood Urea Nitrogen 27 mg/dL (9-23); Calcium 9.6 mg/dL (8.3-10.6); Calcium (Corrected) 9.6 mg/dL (8.5-10.1); Carbon Dioxide 18.8 mMol/L (20.0-31.0); Chloride 111 mMol/L (98-107); Creatinine (Component) 1.5 mg/dL (0.6-1.3); Glucose 93 mg/dL (74-106); Osmolality,Calculated 282 (275-295); Phosphorous 3.0 mg/dL (2.4-5.1); Potassium 3.6 mMol/L (3.4-5.1); Sodium 139 mMol/L (136-145); Thyroid Stimulating Hormone 2.06 uIU/mL (0.55-4.78); eGFR 42 See Note
[2025-04-15 13:40] LABS: Bilirubin,Urine Negative (Negative); Blood,Urine Trace (Negative); Color,Urine Lt-Yellow (Lt Yel-Yel); Glucose, Urine Negative (Negative); Ketones,Urine Negative (Negative); Leukocyte Esterase,Urine Positive (Negative); Nitrite,Urine Negative (Negative); PH,Urine 6.5 (5.0-7.0); Protein,Urine Trace (Neg - Trace); RBC,Urine 5 /hpf (0-3); Specific Gravity,Urine 1.010 (1.001-1.035); Squamous Epithelial Cell,Urine 2 /hpf (0-5); Urobilinogen,Urine Negative mg/dL (0.0-1.0); WBC,Urine 29 /hpf (0-5)
[2025-04-15 13:57] LABS: Clarity,Urine Hazy (Clear/Hazy); Culture Indicated,Urine Yes
[2025-04-15 13:58] LABS: Vitamin B12 > 2000 pg/mL (211-911); Vitamin D 25 Hydroxy Total 62.3 ng/mL (7.3-40.2)
== END | disposition home or self-care (01) ==
LOC: COPL 12:03
PROVIDERS: PCP Internal Medicine; Referring Provider Internal Medicine; Visit Provider Internal Medicine
DX: N17.9 Acute kidney failure, unspecified (principal); I10 Essential (primary) hypertension; E03.9 Hypothyroidism, unspecified
CPT/HCPCS: 36415; 80069; 81001; 82306; 82607; 84443; 85025; 87086

== ENCOUNTER 2025-07-01 13:56 | Emergency (ER) | payer BC, SELFPAY ==
[2025-07-01 14:03] VITALS: BP 124/80; PULSE 70; RESP 18; TEMP 36.6; O2SAT 95
--- NOTE | 2025-07-01 14:06 | XR_ITS ---
Examination: Wrist, left 3 views Technique: Wrist AP, oblique, lateral 3 views Date and time of exam: 07/01/2025 at 2:20 p.m. INDICATION: Left wrist pain after traumatic fall FINDINGS: There is a transverse minimally comminuted fracture through the distal expanded shaft of the radius with prominent overlapping of the dorsal cortex and significant ventral convex angulation no fractures are seen involving the ulna, and all of the carpal bones appear in normal position and alignment with no fractures anywhere. No fractures are seen involving any of the bones of the hand IMPRESSION: 1. Status post transverse fracture of the distal expanded end of the radius with significant overlapping of the dorsal cortex producing very prominent ventral convex angulation 2. No other abnormalities are seen
--- NOTE | 2025-07-01 14:07 | PD.EDUPEX ---
Upper Extremity Injury RME/HPI General Chief Complaint: Extremity Injury, Upper Stated Complaint: LEFT WRIST POSSIBLE FRACTURE Time Seen by Provider: 07/01/25 14:05 Source: patient Arrival date/time: 07/01/25 13:56 49-year-old female with a history of hyperlipidemia, presents to the emergency room with a chief complaint of left wrist tenderness and swelling after a ground-level fall where she tripped over her dog 1 hour ago. Mode of arrival: ambulatory Limitations: no limitations Related Data Home Medications ?Medication ?Instructions ?Recorded ?Confirmed pyridostigmine bromide 60 mg tablet 90 mg PO BID ##60 06/24/15 04/02/25 ondansetron 4 mg disintegrating 4 mg PO BID PRN n/v #0 tabs 03/04/16 04/02/25 tablet duloxetine 20 mg capsule,delayed 20 mg PO BID #0 caps 04/02/17 04/02/25 release (Cymbalta) lorazepam 0.5 mg tablet 0.5 mg PO BID PRN Anxiety #0 tabs 04/02/17 04/02/25 linaclotide 290 mcg capsule 290 mcg PO QDAY 01/18/19 04/02/25 (Linzess) levothyroxine 25 mcg tablet 25 mcg PO QDAY 08/13/21 04/02/25 cyanocobalamin (vitamin B-12) 1,000 mcg subcut QWEEK 08/26/22 04/02/25 1,000 mcg/mL injection solution cyclobenzaprine 5 mg tablet 5 mg PO HS PRN Spasms 08/26/22 04/02/25 ergocalciferol (vitamin D2) 1,250 50,000 unit PO QWEEK 08/26/22 04/02/25 mcg (50,000 unit) capsule potassium chloride 20 mEq/15 mL 20 meq PO TID PRN cramping 08/26/22 04/02/25 oral liquid sodium bicarbonate 650 mg tablet 1,950 mg PO BID 08/26/22 04/02/25 buspirone 15 mg tablet 15 mg PO QDAY 10/20/24 04/02/25 atorvastatin 20 mg tablet 20 mg PO HS 04/02/25 04/02/25 calcitriol 0.25 mcg capsule 0.25 mcg PO . 3 times a week 04/02/25 04/02/25 Allergies Allergy/AdvReac Type Severity Reaction Status Date / Time ciprofloxacin Allergy Severe SEVERE Verified 04/02/25 19:15 NAUSEA AND VOMITING cefuroxime (From Ceftin) Allergy Verified 04/02/25 19:15 Review of Systems Review of Systems Systems Reviewed: All systems reviewed, normal except as documented Constitutional Constitutional: Reports system reviewed and no additional complaints, except as documented, Denies fatigue, Denies fever(s), Denies headache(s) and Denies weakness Eyes Eyes: Reports system reviewed and no additional complaints, except as documented, Denies blurry vision and Denies change in vision ENT Ears, Nose, Mouth, and Throat: Reports system reviewed and no additional complaints, except as documented, Denies otalgia, Denies headache(s), Denies nasal congestion, Denies throat swelling and Denies vertigo Cardiovascular Cardiovascular: Reports system reviewed and no additional complaints, except as documented, Denies chest pain, Denies dyspnea and Denies dyspnea on exertion Respiratory Respiratory: Reports system reviewed and no additional complaints, except as documented, Denies chest congestion, Denies cough, Denies dyspnea, Denies dyspnea on exertion and Denies wheezing Gastrointestinal Gastrointestinal: Reports system reviewed and no additional complaints, except as documented, Denies abdominal pain, Denies cramping, Denies nausea and Denies vomiting Genitourinary Genitourinary: Reports system reviewed and no additional complaints, except as documented Musculoskeletal Musculoskeletal: Reports system reviewed and no additional complaints, except as documented, Denies back pain, Reports joint swelling and Reports limited range of motion Integumentary/Breasts Skin/Breast: Reports system reviewed and no additional complaints, except as documented and Denies wounds Neurologic Neurologic: Reports system reviewed and no additional complaints, except as documented, Denies confusion, Denies headache(s), Denies lack of coordination, Denies vertigo and Denies weakness Psychiatric Psychiatric: Reports system reviewed and no additional complaints, except as documented, Denies anxiety, Denies confusion, Denies depression, Denies paranoia, Denies suicidal ideation and Denies tactile hallucinations Endocrine Endocrine: Reports system reviewed and no additional complaints, except as documented and Denies fatigue Hematologic/Lymphatic Hematologic/Lymphatic: Reports system reviewed and no additional complaints, except as documented and Denies lymphadenopathy Allergic/Immunologic Allergic/Immunologic: Reports system reviewed and no additional complaints, except as documented, Denies throat swelling, Denies urticaria and Denies wheezing ED Exam General Limitations: Present no limitations General appearance: Present alert and in no apparent distress Head Head exam: Present atraumatic Eye Eye exam: Present normal appearance, PERRL and EOMI ENT ENT exam: Present normal exam, normal oropharynx and mucous membranes moist Neck Neck exam: Present normal inspection, full ROM and trachea midline Chest Chest inspection: Present normal inspection and symmetric chest wall rise Respiratory Respiratory exam: Present normal lung sounds bilaterally Cardiovascular Cardiovascular exam: Present regular rate, normal rhythm and normal heart sounds Abdominal Exam Abdominal exam: Present soft and normal bowel sounds Extremities Exam Extremities exam: Present normal inspection and full ROM Expanded Upper Extremity Exam Shoulder exam: Present normal inspection Arm exam: Present normal inspection Elbow exam: Present normal inspection Forearm/Wrist exam: Present full ROM, tenderness and swelling Hand exam: Present normal inspection Vascular exam: Normal capillary refill Back Exam Back exam: Present normal inspection and full ROM Neurological Exam Neurological exam: Present alert, oriented X3 and CN II-XII intact Psychiatric Psychiatric exam: Present normal affect and normal mood Skin Skin exam: Present warm, dry, intact and normal color Course Quality Measures none Orders Category Date Time Status XR wrist comp LT min 3V Stat Exams 07/01/25 14:06 Completed Ketorolac Inj [Toradol Inj] Med 07/01/25 14:07 Discontinued 30 mg IVP X1 ONE Vital Signs Vital signs: Vital Signs Temperature 97.9 F 07/01/25 14:03 Pulse Rate 70 07/01/25 14:03 Respiratory Rate 18 07/01/25 14:03 Blood Pressure 124/80 07/01/25 14:03 Pulse Oximetry (%) 95 07/01/25 14:03 Oxygen Delivery Method Room Air 07/01/25 14:03 Extremity Injury MDM Narrative MDM Narrative:: 49-year-old female with a history of hyperlipidemia, presents to the emergency room with a chief complaint of left wrist tenderness and swelling after a ground-level fall where she tripped over her dog 1 hour ago. Patient is hemodynamically stable and in no apparent distress Physical examination shows tenderness swelling and limited range of motion to the patient's left wrist. The patient came in by ambulance and was already placed in a temporary splint X-ray of the left wrist was completed and shows a radial fracture. A splint was placed and the patient was educated to follow-up with her primary care provider as a referral to an senior project controls specialist is indicated Patient was discharged and educated to follow-up with primary care provider in the next 24 to 48 hours and return to the emergency room for any evidence of worsening signs or symptoms Patient data External records reviewed:: [facility] previous records Clinical information provided by:: patient Social determinants that could affect healthcare access:: none Patient has the following chronic illnesses:: No chronic illness How is presenting disease/condition affected by chronic disease/condition?: no chronic disease Evaluation data The following diagnostics were reviewed and interpreted by me:: lab results and radiology exam(s) Lab and/or radiology exams considered but not ordered:: Labs and radiology exams considered and ordered Interpretation Summary: X-ray wrist-FINDINGS: There is a transverse minimally comminuted fracture through the distal expanded shaft of the radius with prominent overlapping of the dorsal cortex and significant ventral convex angulation no fractures are seen involving the ulna, and all of the carpal bones appear in normal position and alignment with no fractures anywhere. No fractures are seen involving any of the bones of the hand IMPRESSION: 1. Status post transverse fracture of the distal expanded end of the radius with significant overlapping of the dorsal cortex producing very prominent ventral convex angulation 2. No other abnormalities are seen Medications / Prescriptions Medications or Prescriptions considered but not ordered:: Medication given Medication administrations:: Medication Administration History Discontinued Medications Ketorolac Tromethamine (Ketorolac Inj 30 Mg/Ml Vial) 30 mg IVP X1 ONE Stop: 07/01/25 14:08 Last Admin: 07/01/25 14:52 Dose: 30 mg Documented By: SF Medication given Consultations Consultation(s) initiated? (list below): No Diagnosis Upper Extremity Injury Differential Diagnosis: sprain and strain of wrist, fracture of wrist and other (Radial fracture) Most likely diagnosis given after review of the tests above:: Radial fracture Admission Indicated Admission indicated?: not indicated Admission Request Was there a request for admission?: No Disposition Plan Disposition Plan: Discharge Discharge Attestation Discharge Attestation: The patient and all family members were given an opportunity to ask questions and understood the discharge instructions. Discharge instructions specifically effects, indications for sooner follow up or return to the emergency department, and the expected course of current diagnosis. Patient condition: Stable Discharge Plan Plan Patient Disposition: HOME (Self Care) Discharge Disposition comment: Stable Prescriptions/Referrals Prescriptions/Med Rec: No Action pyridostigmine bromide 60 MG tablet 90 mg PO BID Qty: 60 ondansetron 4 mg Tablet,Disintegrating 4 mg PO BID PRN (Reason: n/v) Qty: 0 lorazepam 0.5 MG tablet 0.5 mg PO BID PRN (Reason: Anxiety) Qty: 0 duloxetine [Cymbalta] 20 MG capsule,delayed release(DR/EC) 20 mg PO BID Qty: 0 Linzess 290 mcg Capsule 290 mcg PO QDAY levothyroxine 25 mcg Tablet 25 mcg PO QDAY buspirone 15 mg tablet 15 mg PO QDAY Patient Comments: TAKE 1 TABLET BY MOUTH EVERY DAY sodium bicarbonate 650 mg Tablet 1,950 mg PO BID cyanocobalamin (vitamin B-12) 1,000 mcg/mL solution 1,000 mcg SUBCUT QWEEK Patient Comments: INJECT 1 ML INTRAMUSCULARLY ONCE A WEEK Rx Instructions: Fridays. ergocalciferol (vitamin D2) 1,250 mcg (50,000 unit) capsule 50,000 unit PO QWEEK Patient Comments: TAKE 1 CAPSULE BY MOUTH ONE TIME PER WEEK Rx Instructions: Fridays. cyclobenzaprine 5 mg tablet 5 mg PO HS PRN (Reason: Spasms) Patient Comments: TAKE 1 TABLET BY MOUTH EVERY DAY AT BEDTIME NEEDED potassium chloride 20 mEq/15 mL Liquid 20 meq PO TID PRN (Reason: cramping) calcitriol 0.25 mcg capsule 0.25 mcg PO . 3 times a week Patient Comments: TAKE 1 CAPSULE BY MOUTH 3 TIMES A WEEK atorvastatin 20 mg tablet 20 mg PO HS Patient Comments: TAKE 1 TABLET BY MOUTH NIGHTLY AT BEDTIME Problem List Clinical Impression: Radial fracture Patient/Caregiver Discharge Instructions Education Materials: ED Forearm Fx Wo Redu Additional Instructions: Please follow-up with your primary care provider in the next 24 to 48 hours X-rays of your wrist showed a radial fracture. Please follow-up with your primary care provider for further management A referral to an senior project controls specialist may be indicated For any evidence of worsening signs or symptoms return to the emergency room immediately Print Language: Bengali Stand Alone Forms: Leslee Award Info., Work/School Release, Patient Portal Info Letter PA/TRANSCRIBING OPERATORS SUPERVISOR Supervising Physician PA/TRANSCRIBING OPERATORS SUPERVISOR Supervising Physician: Dr. Neville
[2025-07-01] MEDS: KETOROLAC INJ 30 MG/ML VIAL IVP (14:52)
== END 2025-07-01 16:04 | disposition home or self-care (01) ==
LOC: SERX 16:10
PROVIDERS: Emergency Provider Emergency Medicine; PCP Internal Medicine
DX: S52.502A Unspecified fracture of the lower end of left radius, initial encounter for closed fracture (principal); W01.0XXA Fall on same level from slipping, tripping and stumbling without subsequent striking against object, initial encounter
CPT/HCPCS: 73110; 96374; 99283; J1885